=== PATIENT | male | born 1950 | race Caucasian/White ===

== ENCOUNTER → 2017-02-03 | Outpatient (REF) | payer MEDICARE | LOC: M LAB REF 16:32 | PROVIDERS: ATTEND Internal Medicine | DX: D51.9 Vitamin B12 deficiency anemia, unspecified (principal) ==

== ENCOUNTER → 2017-09-21 | Outpatient (REF) | payer MEDICARE ==
[2017-09-21 20:56] LABS: VITAMIN B12 LEVEL 477 PG/ML (247-911)
== END ==
LOC: M LAB REF 17:48
DX: D51.9 Vitamin B12 deficiency anemia, unspecified (principal)
CPT/HCPCS: 82607

== ENCOUNTER → 2017-11-20 | Outpatient (REF) | payer MEDICARE ==
[2017-11-23 00:07] LABS: ENDOMYSIAL ABY IgA Negative (Negative)
[2017-11-23 00:07] LABS: TISSUE TRANSGLUTAMINASE IgA <2 U/mL (0-3)
== END ==
LOC: M LAB REF 17:28
DX: R19.4 Change in bowel habit (principal)
CPT/HCPCS: 86255

== ENCOUNTER → 2017-11-23 | Outpatient (REF) | payer MEDICARE | LOC: M LAB REF 10:26 | DX: R19.4 Change in bowel habit (principal) | CPT/HCPCS: 87507 ==

== ENCOUNTER → 2022-03-23 | Outpatient (REF) | payer MEDICARE ==
[2022-03-23 17:14] LABS: PERCENT SATURATION 21.1 % (19.7-50.0)
== END ==
LOC: M LAB REF 16:22
PROVIDERS: ATTEND Internal Medicine
DX: D64.9 Anemia, unspecified (principal); R63.4 Abnormal weight loss; R63.0 Anorexia

== ENCOUNTER → 2022-04-24 | Outpatient (CLI) | payer MEDICARE ==
[~2022-04-24] MED LIST: AMIO200T49 PO; ASPI81TA26 PO; D32000CA PO; DILT180C70 PO; IRBE150T7 PO; IRON65TA2 PO; LOPR1TAB6 PO; MAGN400T35 PO; METO50TA7 PO; SUPETAB44 PO; TAMS1CAP17 PO; VITA500T41 PO
== END ==
LOC: M LABSMTC 09:09
PROVIDERS: ATTEND Anesthesiology
DX: Z01.812 Encounter for preprocedural laboratory examination (principal)

== ENCOUNTER 2022-04-28 09:40 | Day surgery (SDC) | payer MEDICARE ==
[~2022-04-28] VITALS: Ht 182.9 cm; Wt 70.3 kg
[~2022-04-28 09:40] MED LIST changes: +NS 1,000 ML IV ONE
[2022-04-28] MEDS ORDERED: LIDOCAINE 2% 100MG/5ML SDV (FOR ANES.) As Ordered ONE (11:16)
[2022-04-28] MEDS ORDERED: propofoL 200 MG/20 ML VIAL As Ordered ONE ×3 (11:16→12:05)
[2022-04-28 12:55] VITALS: BP 157/71
== END 2022-04-28 13:03 | disposition home or self-care (01) ==
LOC: M OPP 09:40
PROVIDERS: ATTEND Surgery
DX: Z12.11 Encounter for screening for malignant neoplasm of colon (principal); Z86.010 Personal history of colon polyps; Z80.0 Family history of malignant neoplasm of digestive organs; D12.0 Benign neoplasm of cecum; D12.4 Benign neoplasm of descending colon; D12.8 Benign neoplasm of rectum; K62.89 Other specified diseases of anus and rectum; I49.1 Atrial premature depolarization; I10 Essential (primary) hypertension; F17.200 Nicotine dependence, unspecified, uncomplicated; G60.9 Hereditary and idiopathic neuropathy, unspecified; N40.0 Benign prostatic hyperplasia without lower urinary tract symptoms; D50.9 Iron deficiency anemia, unspecified; Z79.84 Long term (current) use of oral hypoglycemic drugs; Z79.899 Other long term (current) drug therapy; Z88.0 Allergy status to penicillin; Z88.8 Allergy status to other drugs, medicaments and biological substances; Z93.3 Colostomy status

== ENCOUNTER 2022-07-10 13:26 | Emergency (ER) | payer MEDICARE ==
[~2022-07-10] VITALS: Ht 185.4 cm; Wt 66.4 kg
[~2022-07-10 13:26] MED LIST changes: -NS 1,000 ML IV ONE
[2022-07-10 13:55] LABS: BASO % 0.1 % (0.0-1.0); EOS # 0.1 10^3/uL (0.0-0.5); HEMATOCRIT 42.2 % (42.0-52.0); HEMOGLOBIN 13.9 g/dl (13.5-17.5); LYMPH # 0.9 10^3/uL (1.5-5.0); LYMPH % 12.7 % (24.0-44.0); MEAN CORPUSCULAR HEMOGLOBIN 32.6 pg (27.0-33.0); MEAN CORPUSCULAR HGB CONC 32.9 g/dl (32.0-36.5); MEAN CORPUSCULAR VOLUME 98.8 fl (80.0-96.0); MONO # 0.7 10^3/uL (0.0-0.8); MONO % 9.9 % (2.0-8.0); NEUTROPHILS # 5.2 10^3/uL (1.5-8.5); PLATELET COUNT, AUTOMATED 204 10^3/uL (150-450); RED BLOOD COUNT 4.27 10^6/uL (4.30-6.10); WHITE BLOOD COUNT 6.8 10^3/uL (4.0-10.0)
[2022-07-10 14:24] LABS: BLOOD UREA NITROGEN 28 MG/DL (7-18); CALCIUM LEVEL 9.8 MG/DL (8.8-10.2); CARBON DIOXIDE LEVEL 30 MEQ/L (21-32); CHLORIDE LEVEL 100 MEQ/L (98-107); GLOMERULAR FILTRATION RATE > 60.0 (>42); GLUCOSE, FASTING 115 MG/DL (70-100); SODIUM LEVEL 134 MEQ/L (136-145)
[2022-07-10] MEDS ORDERED: NS 1,000 ML IV ONE (15:10)
[2022-07-10] MEDS ORDERED: LIDOCAINE 2% 5ML JELLY UROJET TOP ONE (15:15)
[2022-07-10] MEDS ORDERED: ISOVUE-370 76% 100ML VIAL As Ordered ONE (15:21)
[2022-07-10 15:42] LABS: ALBUMIN 3.2 GM/DL (3.2-5.2); ALT/SGPT 25 U/L (12-78); BILIRUBIN,DIRECT 0.3 MG/DL (0.0-0.2); BILIRUBIN,TOTAL 0.8 MG/DL (0.2-1.0); FREE T4 1.38 NG/DL (0.76-1.46); TOTAL PROTEIN 6.6 GM/DL (6.4-8.2)
[2022-07-10 15:58] LABS: INR 0.92; PROTHROMBIN TIME 12.6 SECONDS (12.5-14.5)
[2022-07-10 15:59] LABS: PARTIAL THROMBOPLASTIN TIME 29.1 SECONDS (24.8-34.2)
[2022-07-10 18:00] VITALS: BP 158/74
== END 2022-07-10 18:25 | disposition home or self-care (01) ==
LOC: M ED 13:26
DX: C32.1 Malignant neoplasm of supraglottis (principal); R33.9 Retention of urine, unspecified; I10 Essential (primary) hypertension; F17.200 Nicotine dependence, unspecified, uncomplicated; F10.10 Alcohol abuse, uncomplicated; Z86.79 Personal history of other diseases of the circulatory system; Z88.0 Allergy status to penicillin; Z88.8 Allergy status to other drugs, medicaments and biological substances; Z79.82 Long term (current) use of aspirin; Z79.899 Other long term (current) drug therapy
CPT/HCPCS: 51703; 70491; 71275; 80048; 80076; 84439; 84443; 85025; 85610; 85730; 86850; 86900; 86901; 99285; Q9967

== ENCOUNTER → 2022-08-25 | Outpatient (CLI) | payer MEDICARE ==
[~2022-08-25] MED LIST changes: +ASPI81CH33 PO; +CART180C3 PO; +DILT1TAB12 EN; +FINA5TAB2
== END ==
LOC: M ONCR 14:18
PROVIDERS: ATTEND General Practice
DX: C32.1 Malignant neoplasm of supraglottis (principal); F17.210 Nicotine dependence, cigarettes, uncomplicated; E78.5 Hyperlipidemia, unspecified; G62.9 Polyneuropathy, unspecified; I48.91 Unspecified atrial fibrillation; R07.0 Pain in throat; R05.3 Chronic cough; R63.4 Abnormal weight loss; R53.83 Other fatigue; Z80.0 Family history of malignant neoplasm of digestive organs; Z88.0 Allergy status to penicillin; Z88.8 Allergy status to other drugs, medicaments and biological substances; Z79.899 Other long term (current) drug therapy; Z93.0 Tracheostomy status
CPT/HCPCS: 31575; G0463

== ENCOUNTER → 2022-09-05 | Outpatient (CLI) | payer MEDICARE | LOC: M PLARAD 15:14 | PROVIDERS: ATTEND General Practice | DX: C32.1 Malignant neoplasm of supraglottis (principal) | CPT/HCPCS: 78815; A9552 ==

== ENCOUNTER 2022-09-06 09:54 | Outpatient (RCR) | payer MEDICARE ==
[~2022-09-06 09:54] MED LIST changes: -ASPI81CH33 PO
[2022-09-06] MEDS ORDERED: ASPI81CH33 PO (12:18)
[2022-09-22] MEDS ORDERED: ONDA-84 PO (09:55)
[2022-09-22] MEDS ORDERED: PROC10TA5 PO (09:56)
[2022-10-03] MEDS ORDERED: FLUC100T3 PO (10:31)
== END 2022-09-27 ==
LOC: M ST 09:54
PROVIDERS: ATTEND General Practice
DX: C32.1 Malignant neoplasm of supraglottis (principal)

== ENCOUNTER → 2022-09-27 | Outpatient (RCR) | payer MEDICARE ==
[~2022-09-27] MED LIST changes: +ASPI81CH33 PO; +ONDA-84 PO; +PROC10TA5 PO
== END ==
LOC: M ONCR 08-31 12:30
PROVIDERS: ATTEND General Practice
DX: C32.1 Malignant neoplasm of supraglottis (principal)

== ENCOUNTER 2022-10-08 18:21 | Emergency (ER) | payer MEDICARE ==
[~2022-10-08] VITALS: Ht 182.9 cm; Wt 64.4 kg
[~2022-10-08 18:21] MED LIST changes: +FLUC100T3 PO
[2022-10-08 20:37] VITALS: BP 162/89
[2022-10-10] MEDS ORDERED: LIDO15SO4 PO (11:02)
[2022-10-10] MEDS ORDERED: magic mouthwash PO (11:02)
== END 2022-10-08 20:45 | disposition home or self-care (01) ==
LOC: M ED 18:21
DX: I86.8 Varicose veins of other specified sites (principal); I48.91 Unspecified atrial fibrillation; I10 Essential (primary) hypertension; D50.9 Iron deficiency anemia, unspecified; C32.1 Malignant neoplasm of supraglottis; Z85.828 Personal history of other malignant neoplasm of skin; Z92.21 Personal history of antineoplastic chemotherapy; Z92.3 Personal history of irradiation; F17.200 Nicotine dependence, unspecified, uncomplicated; Z79.82 Long term (current) use of aspirin; Z79.899 Other long term (current) drug therapy; Z88.0 Allergy status to penicillin; Z88.8 Allergy status to other drugs, medicaments and biological substances

== ENCOUNTER 2022-10-19 12:32 | Outpatient (CLI) | payer MEDICARE ==
[2022-10-19] VITALS (8 sets, daily range): BP systolic 114–136; BP diastolic 44–82
[~2022-10-19] VITALS: Ht 182.9 cm; Wt 62.2 kg
[~2022-10-19 12:32] MED LIST changes: -DILT1TAB12 EN; +DILT1TAB12 PO; -FINA5TAB2; +FINA5TAB2 PO; +LIDO15SO4 PO; +magic mouthwash PO
[2022-10-19] MEDS ORDERED: ACETAMINOPHEN TAB 650MG DOSE (2X325MG) PO ONE (16:05)
[2022-10-19] MEDS ORDERED: diphenhydrAMINE 25MG CAP PO ONE (16:05)
== END 2022-10-19 18:00 ==
LOC: M INFU 12:32
PROVIDERS: ATTEND Specialist
DX: C32.1 Malignant neoplasm of supraglottis (principal); Z88.0 Allergy status to penicillin; Z88.8 Allergy status to other drugs, medicaments and biological substances

== ENCOUNTER 2022-10-20 09:51 | Outpatient (RCR) | payer MEDICARE ==
[~2022-10-20 09:51] MED LIST changes: +DILT1TAB12 PEG; -DILT1TAB12 PO; +LIDO15SO PO; -LIDO15SO4 PO; +METO50TA7 PEG; -METO50TA7 PO
[2022-10-31] MEDS ORDERED: LIDO15SO PO (14:17)
[2022-10-31] MEDS ORDERED: ASPI81CH33 PO (14:17)
[2022-11-29] MEDS ORDERED: PROP225T PO (10:27)
[2022-11-29] MEDS ORDERED: NYST-38 PO (11:02)
[2022-12-12] MEDS ORDERED: FLUC100T3 PO (14:00)
[2022-12-19] MEDS ORDERED: FERR5MLUD PEG (13:43)
[2022-12-21] MEDS ORDERED: FERR5MLUD PEG (08:21)
[2022-12-21] MEDS ORDERED: MAGN400C PO (13:33)
[2022-12-21] MEDS ORDERED: LEVO1TAB39 PO (13:33)
== END 2022-10-25 ==
LOC: M ONCR 09:51
PROVIDERS: ATTEND General Practice
DX: C32.1 Malignant neoplasm of supraglottis (principal)

== ENCOUNTER 2022-10-20 11:29 | Inpatient (IN) | payer MEDICARE ==
[2022-10-20] VITALS (10 sets, daily range): BP systolic 109–157; BP diastolic 56–80
[~2022-10-20] VITALS: Ht 182.9 cm; Wt 63.2 kg
[~2022-10-20 11:29] MED LIST changes: +FINA5TAB2 PEG; -FINA5TAB2 PO; -LIDO15SO PO; +LIDO15SO4 PO; +TAMS1CAP17 PEG; -TAMS1CAP17 PO
[2022-10-20 12:08] LABS: MEAN CORPUSCULAR HEMOGLOBIN 30.5 pg (27.0-33.0); MEAN CORPUSCULAR VOLUME 92.4 fl (80.0-96.0); PLATELET COUNT, AUTOMATED 119 10^3/uL (150-450); RED BLOOD COUNT 1.97 10^6/uL (4.30-6.10); WHITE BLOOD COUNT 3.8 10^3/uL (4.0-10.0)
[2022-10-20 12:20] LABS: HEMATOCRIT 18.2 % (42.0-52.0)
[2022-10-20 12:33] LABS: CK-MB VALUE MASS < 1.0 NG/ML (<3.6)
[2022-10-20 12:38] LABS: ALBUMIN 2.8 G/DL (3.2-5.2); ALKALINE PHOSPHATASE 71 U/L (46-116); ALT/SGPT 15 U/L (7.0-40); AST/SGOT 16 U/L (<34); BILIRUBIN,DIRECT 0.2 MG/DL (<0.4); BILIRUBIN,TOTAL 0.5 MG/DL (0.3-1.2); BLOOD UREA NITROGEN 46 MG/DL (9-23); CALCIUM LEVEL 8.2 MG/DL (8.3-10.6); CARBON DIOXIDE LEVEL 30 MMOL/L (20-31); CHLORIDE LEVEL 103 MMOL/L (98-107); CPK CREATINE PHOSPHOKINASE 19 U/L (46-171); CREATININE FOR GFR 0.86 MG/DL (0.70-1.30); GLOMERULAR FILTRATION RATE > 60.0 (>42); GLUCOSE, FASTING 118 MG/DL (74-106); MB/CK RELATIVE INDEX 5.26 (< OR =4); POTASSIUM SERUM 3.8 MMOL/L (3.5-5.1); SODIUM LEVEL 137 MMOL/L (136-145); TOTAL PROTEIN 5.2 G/DL (5.7-8.2)
[2022-10-20 12:40] LABS: THYROID STIMULATING HORMONE 1.723 uIU/ML (0.55-4.78)
[2022-10-20 12:59] LABS: ATYPICAL LYMPH 2 % (0-5); LYMPHOCYTES 11 % (16-44); METAMYELOCYTES 2 % (0-0); MONOCYTES 8 % (0-5); NEUTROPHILS 41 % (28-66)
[2022-10-20 13:00] LABS: HYPOCHROMASIA 2+
[2022-10-20] MEDS ORDERED: PANTOPRAZOLE 40MG VIAL IV ONE (13:00)
[2022-10-20 13:02] LABS: ANISOCYTOSIS 2+; PLATELET ESTIMATE DECREASED (NORMAL)
[2022-10-20 13:15] LABS: BASO % 0.3 % (0.0-1.0); EOS % 0.3 % (0.0-3.0); LYMPH # 0.4 10^3/uL (1.5-5.0); LYMPH % 9.9 % (24.0-44.0); MONO # 0.5 10^3/uL (0.0-0.8); MONO % 13.1 % (2.0-8.0); NEUTROPHILS # 2.7 10^3/uL (1.5-8.5); NEUTROPHILS % 76.1 % (36.0-66.0)
[2022-10-20] MEDS ORDERED: HOME MED LIST COMPLETE! XX SCH (13:40)
[2022-10-20 13:51] LABS: IRON (FE) 22 UG/DL (65-175); PERCENT SATURATION 10.1 % (19.7-50.0); TOTAL IRON BINDING CAPACITY 218 UG/DL (250-425)
[2022-10-20 13:54] LABS: FERRITIN 693.8 NG/ML (10.5-307.3)
[2022-10-20] MEDS ORDERED: MAG SULF 1GM/100ML (MAG RUN) 1 GM in IV 1 EA IV ONE (14:20)
[2022-10-20] MEDS ORDERED: ONDANSETRON 4MG TAB PO PRN (15:45)
[2022-10-20 16:01] LABS: RSV AMPLIFICATION NEGATIVE (NEGATIVE)
[2022-10-20] MEDS ORDERED: ONDANSETRON 4MG TAB PEG PRN (16:15)
[2022-10-20 17:58] LABS: HEMOGLOBIN 6.1 g/dl (13.5-17.5)
[2022-10-20 17:59] LABS: HEMATOCRIT 17.9 % (42.0-52.0)
[2022-10-20] MEDS ORDERED: PROCHLORPERAZINE 5MG TAB PO SCH (18:00)
[2022-10-20] MEDS: PROCHLORPERAZINE 5MG TAB PEG SCH (18:00)
[2022-10-20] MEDS: LIDOCAINE VISCOUS 2% SOLN 15ML UDC PO SCH ×2 (18:23→21:00)
[2022-10-20] MEDS: ACETAMINOPHEN TAB 650MG DOSE (2X325MG) PEG PRN (19:55)
[2022-10-20] MEDS ORDERED: TAMSULOSIN 0.4 MG CAP PO SCH (21:00)
[2022-10-20] MEDS ORDERED: FINASTERIDE 5MG TAB PO SCH (21:00)
[2022-10-20] MEDS: PANTOPRAZOLE 40MG VIAL IV SCH (22:05)
[2022-10-20] MEDS: FINASTERIDE 5MG TAB PEG SCH (22:06)
[2022-10-20 22:50] LABS: HEMATOCRIT 22.7 % (42.0-52.0); HEMOGLOBIN 7.9 g/dl (13.5-17.5)
[2022-10-21] VITALS (11 sets, daily range): BP systolic 139–180; BP diastolic 60–89
[2022-10-21] MEDS: PROCHLORPERAZINE 5MG TAB PEG SCH ×5 (00:40→23:47)
[2022-10-21] MEDS: ACETAMINOPHEN TAB 650MG DOSE (2X325MG) PEG PRN ×2 (02:51→23:47)
[2022-10-21 03:56] LABS: BLOOD UREA NITROGEN 28 MG/DL (9-23); CALCIUM LEVEL 7.7 MG/DL (8.3-10.6); CARBON DIOXIDE LEVEL 28 MMOL/L (20-31); CHLORIDE LEVEL 107 MMOL/L (98-107); CREATININE FOR GFR 0.65 MG/DL (0.70-1.30); GLOMERULAR FILTRATION RATE > 60.0 (>42); GLUCOSE, FASTING 96 MG/DL (74-106); MAGNESIUM LEVEL 1.8 MG/DL (1.8-2.4); POTASSIUM SERUM 3.4 MMOL/L (3.5-5.1); SODIUM LEVEL 140 MMOL/L (136-145)
[2022-10-21] MEDS ORDERED: TAMSULOSIN 0.4 MG CAP PO ONE (04:00)
[2022-10-21 04:23] LABS: HEMATOCRIT 25.5 % (42.0-52.0); HEMOGLOBIN 8.7 g/dl (13.5-17.5); MEAN CORPUSCULAR HEMOGLOBIN 29.9 pg (27.0-33.0); MEAN CORPUSCULAR HGB CONC 34.1 g/dl (32.0-36.5); MEAN CORPUSCULAR VOLUME 87.6 fl (80.0-96.0); PLATELET COUNT, AUTOMATED 100 10^3/uL (150-450); RED BLOOD COUNT 2.91 10^6/uL (4.30-6.10)
[2022-10-21] MEDS ORDERED: POTASSIUM CHLORIDE 10MEQ SR TABLET PO ONE (08:00)
[2022-10-21] MEDS ORDERED: POTASSIUM CHLORIDE 10% LIQ 20MEQ/15ML UDC PO ONE (08:05)
[2022-10-21] MEDS: NICOTINE 7 MG/24 HR TRANSDERMAL TD SCH ×2 (09:00→09:07)
[2022-10-21] MEDS ORDERED: ASPIRIN 81MG CHEW TABLET PO SCH (09:00)
[2022-10-21] MEDS ORDERED: METOPROLOL TART 50 MG TAB PO SCH (09:00)
[2022-10-21] MEDS: PANTOPRAZOLE 40MG VIAL IV SCH ×2 (09:07→20:59)
[2022-10-21] MEDS: METOPROLOL TART 25 MG TABLET PEG SCH (09:08)
[2022-10-21] MEDS: LIDOCAINE VISCOUS 2% SOLN 15ML UDC PO SCH ×3 (09:08→21:00)
[2022-10-21 11:03] LABS: ATYPICAL LYMPH 5 % (0-5); EOSINOPHILS 1 % (0-3); LYMPHOCYTES 7 % (16-44); MONOCYTES 9 % (0-5); NEUTROPHILS 73 % (28-66); PLATELET ESTIMATE DECREASED (NORMAL); TOXIC GRANULATION 1+; TOXIC VACUOLATION 1+
[2022-10-21 11:04] LABS: ANISOCYTOSIS 1+
[2022-10-21 11:05] LABS: OVALOCYTES 1+
[2022-10-21] MEDS ORDERED: FLEET ENEMA PR ONE (12:00)
[2022-10-21 12:22] LABS: HEMATOCRIT 25.2 % (42.0-52.0); HEMOGLOBIN 8.8 g/dl (13.5-17.5)
[2022-10-21] MEDS ORDERED: LIDOCAINE 2% 100MG/5ML SDV (FOR ANES.) As Ordered ONE (15:59)
[2022-10-21] MEDS ORDERED: propofoL 200 MG/20 ML VIAL As Ordered ONE ×2 (16:07→16:16)
[2022-10-21] MEDS ORDERED: SIMETHICONE 40MG/0.6ML DROPS 30ML As Ordered ONE (16:35)
[2022-10-21] MEDS: SUCRALFATE SUSP 1GM/10ML UD GT SCH ×2 (17:24→20:59)
[2022-10-21] MEDS: TAMSULOSIN 0.4 MG CAP PO SCH (17:29)
[2022-10-21 18:38] LABS: BASO % 0.7 % (0.0-1.0); HEMATOCRIT 27.7 % (42.0-52.0); HEMOGLOBIN 9.3 g/dl (13.5-17.5); LYMPH # 0.3 10^3/uL (1.5-5.0); MEAN CORPUSCULAR HEMOGLOBIN 30.2 pg (27.0-33.0); MEAN CORPUSCULAR HGB CONC 33.6 g/dl (32.0-36.5); MEAN CORPUSCULAR VOLUME 89.9 fl (80.0-96.0); MONO # 0.2 10^3/uL (0.0-0.8); NEUTROPHILS % 65.3 % (36.0-66.0); PLATELET COUNT, AUTOMATED 98 10^3/uL (150-450); RED BLOOD COUNT 3.08 10^6/uL (4.30-6.10); WHITE BLOOD COUNT 1.5 10^3/uL (4.0-10.0)
[2022-10-21] MEDS: FINASTERIDE 5MG TAB PEG SCH (20:49)
[2022-10-22] VITALS (7 sets, daily range): BP systolic 116–204; BP diastolic 48–80
[2022-10-22] MEDS ORDERED: LEVALBUTEROL 1.25MG 0.5ML CONCENTRATE NEB NEB ONE (00:50)
[2022-10-22 01:07] LABS: HEMATOCRIT 26.6 % (42.0-52.0); HEMOGLOBIN 9.3 g/dl (13.5-17.5)
[2022-10-22 04:30] LABS: HEMATOCRIT 26.8 % (42.0-52.0); HEMOGLOBIN 9.4 g/dl (13.5-17.5); MEAN CORPUSCULAR HEMOGLOBIN 30.7 pg (27.0-33.0); MEAN CORPUSCULAR HGB CONC 35.1 g/dl (32.0-36.5); MEAN CORPUSCULAR VOLUME 87.6 fl (80.0-96.0); PLATELET COUNT, AUTOMATED 107 10^3/uL (150-450); RED BLOOD COUNT 3.06 10^6/uL (4.30-6.10); WHITE BLOOD COUNT 1.1 10^3/uL (4.0-10.0)
[2022-10-22] MEDS: ACETAMINOPHEN TAB 650MG DOSE (2X325MG) PEG PRN ×3 (04:53→20:25)
[2022-10-22 04:56] LABS: BASOPHILS 2 % (0-1); LYMPHOCYTES 11 % (16-44); MONOCYTES 19 % (0-5); NEUTROPHILS 58 % (28-66); PLATELET ESTIMATE DECREASED (NORMAL)
[2022-10-22 04:57] LABS: ANISOCYTOSIS 2+
[2022-10-22 04:58] LABS: OVALOCYTES 1+; POIKILOCYTOSIS 1+
[2022-10-22 04:59] LABS: MICROCYTOSIS 1+
[2022-10-22] MEDS: PROCHLORPERAZINE 5MG TAB PEG SCH ×3 (05:15→17:55)
[2022-10-22 06:17] LABS: HEMATOCRIT 26.7 % (42.0-52.0); HEMOGLOBIN 9.1 g/dl (13.5-17.5); MEAN CORPUSCULAR HEMOGLOBIN 30.3 pg (27.0-33.0); MEAN CORPUSCULAR HGB CONC 34.1 g/dl (32.0-36.5); WHITE BLOOD COUNT 1.1 10^3/uL (4.0-10.0)
[2022-10-22 06:22] LABS: PLATELET COUNT, AUTOMATED 90 10^3/uL (150-450)
[2022-10-22 06:44] LABS: BLOOD UREA NITROGEN 15 MG/DL (9-23); CALCIUM LEVEL 7.5 MG/DL (8.3-10.6); CARBON DIOXIDE LEVEL 27 MMOL/L (20-31); CHLORIDE LEVEL 105 MMOL/L (98-107); CREATININE FOR GFR 0.66 MG/DL (0.70-1.30); GLOMERULAR FILTRATION RATE > 60.0 (>42); GLUCOSE, FASTING 97 MG/DL (74-106); MAGNESIUM LEVEL 1.6 MG/DL (1.8-2.4); POTASSIUM SERUM 3.2 MMOL/L (3.5-5.1); SODIUM LEVEL 139 MMOL/L (136-145)
[2022-10-22] MEDS ORDERED: POTASSIUM CHLORIDE 10% LIQ 20MEQ/15ML UDC PO ONE (06:55)
[2022-10-22 07:11] LABS: LYMPH # 0.1 10^3/uL (1.5-5.0); LYMPH % 10.4 % (24.0-44.0); MONO # 0.2 10^3/uL (0.0-0.8); MONO % 22.6 % (2.0-8.0); NEUTROPHILS % 66.1 % (36.0-66.0)
[2022-10-22 07:13] LABS: NEUTROPHILS # 0.7 10^3/uL (1.5-8.5)
[2022-10-22] MEDS: PANTOPRAZOLE 40MG VIAL IV SCH ×2 (08:39→20:48)
[2022-10-22] MEDS: LIDOCAINE VISCOUS 2% SOLN 15ML UDC PO SCH ×3 (08:40→20:52)
[2022-10-22] MEDS: SUCRALFATE SUSP 1GM/10ML UD GT SCH ×4 (08:41→20:52)
[2022-10-22] MEDS: MAG SULF 1GM/100ML (MAG RUN) 1 GM in IV 1 EA IV SCH ×2 (08:42→11:01)
[2022-10-22] MEDS: METOPROLOL TART 25 MG TABLET PEG SCH (08:42)
[2022-10-22] MEDS: TAMSULOSIN 0.4 MG CAP PO SCH ×2 (08:42→20:48)
[2022-10-22] MEDS: NICOTINE 7 MG/24 HR TRANSDERMAL TD SCH (08:43)
[2022-10-22] MEDS ORDERED: LIDOCAINE 2% 5ML JELLY UROJET As Ordered ONE (09:39)
[2022-10-22 12:00] LABS: HEMATOCRIT 27.3 % (42.0-52.0); HEMOGLOBIN 9.2 g/dl (13.5-17.5)
[2022-10-22] MEDS: guaiFENesin 200 MG TAB PEG SCH ×2 (12:41→20:48)
[2022-10-22] MEDS ORDERED: FERROUS SULFATE 325MG TAB PEG SCH (12:50)
[2022-10-22] MEDS ORDERED: EPOETIN SC ONE (14:00)
[2022-10-22] MEDS: FERROUS SULFATE 300MG/5ML UDC LIQUID PO SCH (15:16)
[2022-10-22] MEDS: FILGRASTIM 480 MCG/0.8 ML SYRINGE **SC ADMINISTRATION ONLY SC SCH (15:18)
[2022-10-22] MEDS: FINASTERIDE 5MG TAB PEG SCH (20:38)
[2022-10-23] VITALS (7 sets, daily range): BP systolic 108–182; BP diastolic 42–70
[2022-10-23] MEDS: PROCHLORPERAZINE 5MG TAB PEG SCH ×4 (00:41→17:14)
[2022-10-23] MEDS: ACETAMINOPHEN TAB 650MG DOSE (2X325MG) PEG PRN ×4 (00:42→20:13)
[2022-10-23] MEDS ORDERED: amLODIPine 5 MG TAB PO ONE (02:00)
[2022-10-23 05:34] LABS: HEMATOCRIT 27.8 % (42.0-52.0); HEMOGLOBIN 9.5 g/dl (13.5-17.5); MEAN CORPUSCULAR HEMOGLOBIN 30.6 pg (27.0-33.0); MEAN CORPUSCULAR HGB CONC 34.2 g/dl (32.0-36.5); MEAN CORPUSCULAR VOLUME 89.7 fl (80.0-96.0)
[2022-10-23 05:38] LABS: PLATELET COUNT, AUTOMATED 73 10^3/uL (150-450); WHITE BLOOD COUNT 0.9 10^3/uL (4.0-10.0)
[2022-10-23 06:02] LABS: BLOOD UREA NITROGEN 12 MG/DL (9-23); CARBON DIOXIDE LEVEL 27 MMOL/L (20-31); CHLORIDE LEVEL 99 MMOL/L (98-107); GLOMERULAR FILTRATION RATE > 60.0 (>42); GLUCOSE, FASTING 104 MG/DL (74-106); MAGNESIUM LEVEL 1.7 MG/DL (1.8-2.4); POTASSIUM SERUM 3.8 MMOL/L (3.5-5.1); SODIUM LEVEL 133 MMOL/L (136-145)
[2022-10-23 06:44] LABS: LYMPH # 0.1 10^3/uL (1.5-5.0); MONO # 0.2 10^3/uL (0.0-0.8); MONO % 17.4 % (2.0-8.0); NEUTROPHILS % 69.5 % (36.0-66.0)
[2022-10-23 06:47] LABS: NEUTROPHILS # 0.6 10^3/uL (1.5-8.5)
[2022-10-23] MEDS: MAG SULF 1GM/100ML (MAG RUN) 1 GM in IV 1 EA IV SCH ×2 (07:55→09:37)
[2022-10-23] MEDS: NICOTINE 7 MG/24 HR TRANSDERMAL TD SCH (08:43)
[2022-10-23] MEDS ORDERED: ASPIRIN 81MG ENTERIC TABLET PO SCH (09:00)
[2022-10-23] MEDS: LIDOCAINE VISCOUS 2% SOLN 15ML UDC PO SCH ×3 (09:37→20:12)
[2022-10-23] MEDS: SUCRALFATE SUSP 1GM/10ML UD GT SCH ×4 (09:37→20:13)
[2022-10-23] MEDS: PANTOPRAZOLE 40MG VIAL IV SCH (09:37)
[2022-10-23] MEDS: FERROUS SULFATE 300MG/5ML UDC LIQUID PO SCH (09:37)
[2022-10-23] MEDS: TAMSULOSIN 0.4 MG CAP PO SCH ×2 (09:37→20:14)
[2022-10-23] MEDS: guaiFENesin 200 MG TAB PEG SCH ×2 (09:37→20:13)
[2022-10-23] MEDS: METOPROLOL TART 25 MG TABLET PEG SCH (09:38)
[2022-10-23] MEDS: LevoFLOXacin IV 750 MG in IV 1 EA IV SCH (11:32)
[2022-10-23] MEDS: FILGRASTIM 480 MCG/0.8 ML SYRINGE **SC ADMINISTRATION ONLY SC SCH (11:32)
[2022-10-23] MEDS: ASPIRIN 81MG CHEW TABLET PO SCH (11:33)
[2022-10-23] MEDS: LIDOCAINE 4% TOPICAL SOLN 50 ML BTL TOP PRN (13:52)
[2022-10-23] MEDS: OMEPRAZOLE SUSPENSION 20MG 10ML ORAL SYRINGE GT SCH (20:13)
[2022-10-23] MEDS: FINASTERIDE 5MG TAB PEG SCH (20:14)
[2022-10-24] VITALS (9 sets, daily range): BP systolic 100–142; BP diastolic 48–68; O2SAT 90–92
[2022-10-24] MEDS: PROCHLORPERAZINE 5MG TAB PEG SCH ×4 (00:30→17:32)
[2022-10-24 06:28] LABS: HEMATOCRIT 26.2 % (42.0-52.0); HEMOGLOBIN 8.8 g/dl (13.5-17.5); MEAN CORPUSCULAR HEMOGLOBIN 30.6 pg (27.0-33.0); MEAN CORPUSCULAR HGB CONC 33.6 g/dl (32.0-36.5); RED BLOOD COUNT 2.88 10^6/uL (4.30-6.10)
[2022-10-24 06:32] LABS: PLATELET COUNT, AUTOMATED 80 10^3/uL (150-450); WHITE BLOOD COUNT 0.7 10^3/uL (4.0-10.0)
[2022-10-24 06:51] LABS: BLOOD UREA NITROGEN 14 MG/DL (9-23); CALCIUM LEVEL 7.7 MG/DL (8.3-10.6); CARBON DIOXIDE LEVEL 30 MMOL/L (20-31); CHLORIDE LEVEL 97 MMOL/L (98-107); CREATININE FOR GFR 0.66 MG/DL (0.70-1.30); GLOMERULAR FILTRATION RATE > 60.0 (>42); GLUCOSE, FASTING 111 MG/DL (74-106); MAGNESIUM LEVEL 1.9 MG/DL (1.8-2.4); POTASSIUM SERUM 4.1 MMOL/L (3.5-5.1); SODIUM LEVEL 132 MMOL/L (136-145)
[2022-10-24] MEDS ORDERED: ACETYLCYSTEINE 10% 30ML VIAL INH SCH (08:00)
[2022-10-24] MEDS: SUCRALFATE SUSP 1GM/10ML UD GT SCH ×4 (08:38→20:52)
[2022-10-24] MEDS: ASPIRIN 81MG CHEW TABLET PO SCH (08:39)
[2022-10-24] MEDS: METOPROLOL TART 25 MG TABLET PEG SCH (08:39)
[2022-10-24] MEDS: FERROUS SULFATE 300MG/5ML UDC LIQUID PO SCH (08:39)
[2022-10-24] MEDS: TAMSULOSIN 0.4 MG CAP PO SCH ×2 (08:39→20:53)
[2022-10-24] MEDS: NICOTINE 7 MG/24 HR TRANSDERMAL TD SCH (08:40)
[2022-10-24] MEDS: guaiFENesin 200 MG TAB PEG SCH ×2 (08:40→20:52)
[2022-10-24] MEDS: OMEPRAZOLE SUSPENSION 20MG 10ML ORAL SYRINGE GT SCH ×2 (08:40→20:53)
[2022-10-24] MEDS: LIDOCAINE VISCOUS 2% SOLN 15ML UDC PO SCH ×3 (08:40→20:54)
[2022-10-24] MEDS: ALBUTEROL SULFATE 2.5MG/0.5ML INH NEB SOLN NEB SCH ×4 (09:41→23:23)
[2022-10-24 10:39] LABS: BASO % 1.4 % (0.0-1.0); LYMPH # 0.1 10^3/uL (1.5-5.0); LYMPH % 9.5 % (24.0-44.0); MONO # 0.1 10^3/uL (0.0-0.8); MONO % 10.8 % (2.0-8.0); NEUTROPHILS % 76.9 % (36.0-66.0)
[2022-10-24 10:43] LABS: NEUTROPHILS # 0.6 10^3/uL (1.5-8.5)
[2022-10-24] MEDS: NS 1,000 ML IV SCH ×2 (12:18→22:39)
[2022-10-24] MEDS: LevoFLOXacin IV 750 MG in IV 1 EA IV SCH (12:18)
[2022-10-24] MEDS: FILGRASTIM 480 MCG/0.8 ML SYRINGE **SC ADMINISTRATION ONLY SC SCH (12:27)
[2022-10-24] MEDS ORDERED: SODIUM CHLORIDE 0.9% 1000ML IV STA (13:45)
[2022-10-24 14:20] LABS: ABG BASE EXCESS 4.1 (-2.0-2.0); ABG PARTIAL PRESSURE CO2 34.1 mmHg (35.0-45.0); ABG TOTAL CO2 28.1 MEQ/L (23.0-31.0); ABG pH (ARTERIAL) 7.517 UNITS (7.350-7.450)
[2022-10-24 14:21] LABS: ABG PARTIAL PRESSURE O2 49.6 mmHg (75.0-100.0)
[2022-10-24 14:38] LABS: HEMATOCRIT 26.2 % (42.0-52.0); LYMPH # 0.1 10^3/uL (1.5-5.0); LYMPH % 5.8 % (24.0-44.0); MEAN CORPUSCULAR HEMOGLOBIN 30.9 pg (27.0-33.0); MEAN CORPUSCULAR HGB CONC 34.4 g/dl (32.0-36.5); MONO # 0.1 10^3/uL (0.0-0.8); MONO % 4.8 % (2.0-8.0); NEUTROPHILS % 70.1 % (36.0-66.0); RED BLOOD COUNT 2.91 10^6/uL (4.30-6.10)
[2022-10-24 14:44] LABS: NEUTROPHILS # 0.7 10^3/uL (1.5-8.5); PLATELET COUNT, AUTOMATED 82 10^3/uL (150-450)
[2022-10-24] MEDS ORDERED: VANCOMYCIN HCL 1,000 MG, VIAL MATE ADAPTER 1 EACH in D5W 250 ML IV ONE (15:00)
[2022-10-24] MEDS ORDERED: ISOVUE-370 76% 100ML VIAL As Ordered ONE (15:00)
[2022-10-24 15:08] LABS: ALBUMIN 1.8 G/DL (3.2-5.2); ALKALINE PHOSPHATASE 103 U/L (46-116); ALT/SGPT 33 U/L (7.0-40); AST/SGOT 30 U/L (<34); BILIRUBIN,DIRECT 0.3 MG/DL (<0.4); BILIRUBIN,TOTAL 0.5 MG/DL (0.3-1.2); BLOOD UREA NITROGEN 19 MG/DL (9-23); CALCIUM LEVEL 7.7 MG/DL (8.3-10.6); CARBON DIOXIDE LEVEL 29 MMOL/L (20-31); CHLORIDE LEVEL 95 MMOL/L (98-107); CREATININE FOR GFR 0.69 MG/DL (0.70-1.30); GLOMERULAR FILTRATION RATE > 60.0 (>42); GLUCOSE, FASTING 170 MG/DL (74-106); MAGNESIUM LEVEL 1.7 MG/DL (1.8-2.4); POTASSIUM SERUM 3.3 MMOL/L (3.5-5.1); SODIUM LEVEL 131 MMOL/L (136-145); TOTAL PROTEIN 4.4 G/DL (5.7-8.2)
[2022-10-24] MEDS ORDERED: POTASSIUM CHLORIDE 10% LIQ 20MEQ/15ML UDC PEG ONE (15:15)
[2022-10-24] MEDS: CEFEPIME HCL 2 GM in D5W 50 ML IV SCH ×2 (15:25→22:39)
[2022-10-24] MEDS: LIDOCAINE 4% TOPICAL SOLN 50 ML BTL TOP PRN (16:19)
[2022-10-24] MEDS: MAG SULF 1GM/100ML (MAG RUN) 1 GM in IV 1 EA IV SCH ×2 (17:32→18:49)
[2022-10-24 17:33] LABS: HEMATOCRIT 24.7 % (42.0-52.0); HEMOGLOBIN 8.5 g/dl (13.5-17.5)
[2022-10-24] MEDS: ACETYLCYSTEINE 20% 4 ML VIAL (200MG/ML) INH SCH (19:32)
[2022-10-24] MEDS: VANCOMYCIN HCL 1,000 MG, VIAL MATE ADAPTER 1 EACH in NS 250 ML IV SCH (20:51)
[2022-10-24] MEDS: FINASTERIDE 5MG TAB PEG SCH (20:53)
[2022-10-24] MEDS ORDERED: ALBUTEROL SULFATE 2.5MG/0.5ML INH NEB SOLN NEB PRN (21:35)
[2022-10-25] VITALS (10 sets, daily range): BP systolic 122–158; BP diastolic 57–70
[2022-10-25] MEDS: PROCHLORPERAZINE 5MG TAB PEG SCH ×5 (01:05→23:20)
[2022-10-25] MEDS: ALBUTEROL SULFATE 2.5MG/0.5ML INH NEB SOLN NEB SCH ×6 (03:52→23:27)
[2022-10-25] MEDS: ACETAMINOPHEN TAB 650MG DOSE (2X325MG) PEG PRN (04:28)
[2022-10-25] MEDS: CEFEPIME HCL 2 GM in D5W 50 ML IV SCH ×3 (05:12→21:49)
[2022-10-25 06:42] LABS: HEMATOCRIT 23.2 % (42.0-52.0); HEMOGLOBIN 7.9 g/dl (13.5-17.5); MEAN CORPUSCULAR HEMOGLOBIN 30.5 pg (27.0-33.0); MEAN CORPUSCULAR HGB CONC 34.1 g/dl (32.0-36.5); MEAN CORPUSCULAR VOLUME 89.6 fl (80.0-96.0); RED BLOOD COUNT 2.59 10^6/uL (4.30-6.10)
[2022-10-25 06:50] LABS: PLATELET COUNT, AUTOMATED 76 10^3/uL (150-450)
[2022-10-25 06:51] LABS: WHITE BLOOD COUNT 0.9 10^3/uL (4.0-10.0)
[2022-10-25 07:05] LABS: BLOOD UREA NITROGEN 14 MG/DL (9-23); CALCIUM LEVEL 7.3 MG/DL (8.3-10.6); CARBON DIOXIDE LEVEL 26 MMOL/L (20-31); CHLORIDE LEVEL 100 MMOL/L (98-107); CREATININE FOR GFR 0.66 MG/DL (0.70-1.30); GLOMERULAR FILTRATION RATE > 60.0 (>42); GLUCOSE, FASTING 113 MG/DL (74-106); MAGNESIUM LEVEL 1.7 MG/DL (1.8-2.4); POTASSIUM SERUM 3.5 MMOL/L (3.5-5.1); SODIUM LEVEL 132 MMOL/L (136-145)
[2022-10-25] MEDS ORDERED: MAG SULF 1GM/100ML (MAG RUN) 1 GM in IV 1 EA IV ONE (07:10)
[2022-10-25] MEDS: NS 1,000 ML IV SCH ×2 (07:59→20:22)
[2022-10-25] MEDS: ACETYLCYSTEINE 20% 4 ML VIAL (200MG/ML) INH SCH ×2 (08:00→19:31)
[2022-10-25 08:18] LABS: HEMATOCRIT 22.6 % (42.0-52.0); HEMOGLOBIN 7.8 g/dl (13.5-17.5); LYMPH # 0.1 10^3/uL (1.5-5.0); LYMPH % 10.2 % (24.0-44.0); MEAN CORPUSCULAR HEMOGLOBIN 31.1 pg (27.0-33.0); MEAN CORPUSCULAR HGB CONC 34.5 g/dl (32.0-36.5); MONO # 0.1 10^3/uL (0.0-0.8); RED BLOOD COUNT 2.51 10^6/uL (4.30-6.10)
[2022-10-25 08:28] LABS: NEUTROPHILS # 0.7 10^3/uL (1.5-8.5); PLATELET COUNT, AUTOMATED 73 10^3/uL (150-450); WHITE BLOOD COUNT 0.9 10^3/uL (4.0-10.0)
[2022-10-25] MEDS: FERROUS SULFATE 300MG/5ML UDC LIQUID PO SCH (08:34)
[2022-10-25] MEDS: OMEPRAZOLE SUSPENSION 20MG 10ML ORAL SYRINGE GT SCH ×2 (08:34→20:19)
[2022-10-25] MEDS: SUCRALFATE SUSP 1GM/10ML UD GT SCH ×4 (08:34→20:21)
[2022-10-25] MEDS: guaiFENesin 200 MG TAB PEG SCH ×2 (08:34→20:20)
[2022-10-25] MEDS: NICOTINE 7 MG/24 HR TRANSDERMAL TD SCH (08:35)
[2022-10-25] MEDS: METOPROLOL TART 25 MG TABLET PEG SCH (08:35)
[2022-10-25] MEDS: ASPIRIN 81MG CHEW TABLET PO SCH (08:35)
[2022-10-25] MEDS: TAMSULOSIN 0.4 MG CAP PO SCH ×2 (08:35→20:21)
[2022-10-25] MEDS ORDERED: ASPIRIN 81MG CHEW TABLET PEG SCH (09:00)
[2022-10-25] MEDS: LIDOCAINE VISCOUS 2% SOLN 15ML UDC PO SCH ×3 (09:00→20:19)
[2022-10-25] MEDS: VANCOMYCIN HCL 1,000 MG, VIAL MATE ADAPTER 1 EACH in NS 250 ML IV SCH (09:30)
[2022-10-25] MEDS: FILGRASTIM 480 MCG/0.8 ML SYRINGE **SC ADMINISTRATION ONLY SC SCH (09:30)
[2022-10-25 13:21] LABS: INR 1.05; PROTHROMBIN TIME 13.9 SECONDS (12.5-14.5)
[2022-10-25 14:37] LABS: HEMATOCRIT 25.8 % (42.0-52.0); HEMOGLOBIN 8.7 g/dl (13.5-17.5)
[2022-10-25] MEDS: LevoFLOXacin 750 MG TABLET PO SCH (17:15)
[2022-10-25] MEDS: FINASTERIDE 5MG TAB PEG SCH (20:21)
[2022-10-26] VITALS (19 sets, daily range): BP systolic 128–158; BP diastolic 52–87; O2SAT 92–99
[2022-10-26] MEDS: ALBUTEROL SULFATE 2.5MG/0.5ML INH NEB SOLN NEB SCH ×6 (03:17→23:04)
[2022-10-26 04:46] LABS: EOS % 0.6 % (0.0-3.0); HEMOGLOBIN 8.1 g/dl (13.5-17.5); LYMPH # 0.1 10^3/uL (1.5-5.0); LYMPH % 7.6 % (24.0-44.0); MEAN CORPUSCULAR HEMOGLOBIN 30.6 pg (27.0-33.0); MEAN CORPUSCULAR HGB CONC 33.8 g/dl (32.0-36.5); MEAN CORPUSCULAR VOLUME 90.6 fl (80.0-96.0); MONO # 0.1 10^3/uL (0.0-0.8); MONO % 5.8 % (2.0-8.0); NEUTROPHILS # 1.3 10^3/uL (1.5-8.5); NEUTROPHILS % 74.9 % (36.0-66.0); RED BLOOD COUNT 2.65 10^6/uL (4.30-6.10); WHITE BLOOD COUNT 1.7 10^3/uL (4.0-10.0)
[2022-10-26 04:48] LABS: PLATELET COUNT, AUTOMATED 86 10^3/uL (150-450)
[2022-10-26 05:18] LABS: BLOOD UREA NITROGEN 13 MG/DL (9-23); CALCIUM LEVEL 7.2 MG/DL (8.3-10.6); CARBON DIOXIDE LEVEL 28 MMOL/L (20-31); CHLORIDE LEVEL 102 MMOL/L (98-107); CREATININE FOR GFR 0.58 MG/DL (0.70-1.30); GLOMERULAR FILTRATION RATE > 60.0 (>42); GLUCOSE, FASTING 100 MG/DL (74-106); MAGNESIUM LEVEL 1.5 MG/DL (1.8-2.4); POTASSIUM SERUM 3.1 MMOL/L (3.5-5.1); SODIUM LEVEL 136 MMOL/L (136-145)
[2022-10-26] MEDS ORDERED: MAGNESIUM OXIDE 400MG TAB (MAG-OX) PO ONE (05:50)
[2022-10-26] MEDS: PROCHLORPERAZINE 5MG TAB PEG SCH ×4 (06:00→23:26)
[2022-10-26] MEDS ORDERED: POTASSIUM CHLORIDE 10MEQ SR TABLET PO ONE (06:00)
[2022-10-26] MEDS: CEFEPIME HCL 2 GM in D5W 50 ML IV SCH (06:12)
[2022-10-26] MEDS: NS 1,000 ML IV SCH (06:21)
[2022-10-26] MEDS ORDERED: POTASSIUM CHLORIDE 10% LIQ 20MEQ/15ML UDC GT ONE (07:00)
[2022-10-26] MEDS: SUCRALFATE SUSP 1GM/10ML UD GT SCH ×4 (07:30→20:47)
[2022-10-26] MEDS: ACETYLCYSTEINE 20% 4 ML VIAL (200MG/ML) INH SCH ×2 (08:15→19:05)
[2022-10-26] MEDS: MAG SULF 1GM/100ML (MAG RUN) 1 GM in IV 1 EA IV SCH ×2 (08:31→09:00)
[2022-10-26] MEDS: NICOTINE 7 MG/24 HR TRANSDERMAL TD SCH (08:32)
[2022-10-26] MEDS: LIDOCAINE VISCOUS 2% SOLN 15ML UDC PO SCH ×3 (09:00→20:48)
[2022-10-26] MEDS: TAMSULOSIN 0.4 MG CAP PO SCH ×2 (09:00→20:47)
[2022-10-26] MEDS: FILGRASTIM 480 MCG/0.8 ML SYRINGE **SC ADMINISTRATION ONLY SC SCH (09:09)
[2022-10-26] MEDS ORDERED: fentaNYL 250 MCG/5 ML INJECTION As Ordered ONE (09:18)
[2022-10-26] MEDS ORDERED: MIDAZOLAM INJ 2MG/2ML VIAL As Ordered ONE (09:18)
[2022-10-26] MEDS ORDERED: LIDOCAINE 2% 100MG/5ML SDV (FOR ANES.) As Ordered ONE (09:19)
[2022-10-26] MEDS ORDERED: ONDANSETRON 4MG 2ML VIAL As Ordered ONE (09:19)
[2022-10-26] MEDS ORDERED: propofoL 200 MG/20 ML VIAL As Ordered ONE (09:19)
[2022-10-26] MEDS ORDERED: EPINEPHrine 1MG/10ML SYRINGE 1.5IN As Ordered ONE (10:18)
[2022-10-26] MEDS ORDERED: THROMBIN 5,000 UNITS VIAL As Ordered ONE (10:18)
[2022-10-26] MEDS ORDERED: CETACAINE SPRAY 5GM As Ordered ONE (10:18)
[2022-10-26] MEDS ORDERED: LIDOCAINE 1% SDV 30ML VIAL As Ordered ONE (10:21)
[2022-10-26] MEDS ORDERED: oxyCODONE 5MG TAB PO PRN (11:30)
[2022-10-26] MEDS ORDERED: HYDROMORPHONE HCL 0.5 MG/ 0.5 ML SYRINGE IV PRN (11:30)
[2022-10-26] MEDS ORDERED: fentaNYL 100 MCG/2 ML INJECTION IV PRN (11:30)
[2022-10-26] MEDS: OMEPRAZOLE SUSPENSION 20MG 10ML ORAL SYRINGE GT SCH ×2 (13:04→20:47)
[2022-10-26] MEDS: METOPROLOL TART 25 MG TABLET PEG SCH (13:05)
[2022-10-26] MEDS: guaiFENesin 200 MG TAB PEG SCH ×2 (13:05→20:47)
[2022-10-26] MEDS: ASPIRIN 81MG CHEW TABLET PEG SCH (13:05)
[2022-10-26] MEDS: FERROUS SULFATE 300MG/5ML UDC LIQUID PO SCH (13:06)
[2022-10-26] MEDS ORDERED: MAG SULF 1GM/100ML (MAG RUN) 1 GM in IV 1 EA IV SCH (15:00)
[2022-10-26] MEDS: LevoFLOXacin 750 MG TABLET PO SCH (17:37)
[2022-10-26] MEDS: FINASTERIDE 5MG TAB PEG SCH (20:46)
[2022-10-27] MEDS: ALBUTEROL SULFATE 2.5MG/0.5ML INH NEB SOLN NEB SCH ×3 (03:42→11:33)
[2022-10-27 05:00] VITALS: BP 137/62
[2022-10-27] MEDS: PROCHLORPERAZINE 5MG TAB PEG SCH ×2 (05:18→13:09)
[2022-10-27 05:37] LABS: MAGNESIUM LEVEL 1.5 MG/DL (1.8-2.4)
[2022-10-27 07:19] LABS: HEMATOCRIT 25.2 % (42.0-52.0); HEMOGLOBIN 8.6 g/dl (13.5-17.5); MEAN CORPUSCULAR HEMOGLOBIN 30.6 pg (27.0-33.0); MEAN CORPUSCULAR HGB CONC 34.1 g/dl (32.0-36.5); MEAN CORPUSCULAR VOLUME 89.7 fl (80.0-96.0); RED BLOOD COUNT 2.81 10^6/uL (4.30-6.10); WHITE BLOOD COUNT 2.8 10^3/uL (4.0-10.0)
[2022-10-27 07:21] LABS: PLATELET COUNT, AUTOMATED 85 10^3/uL (150-450)
[2022-10-27 07:22] LABS: BLOOD UREA NITROGEN 12 MG/DL (9-23); CALCIUM LEVEL 7.4 MG/DL (8.3-10.6); CARBON DIOXIDE LEVEL 28 MMOL/L (20-31); CHLORIDE LEVEL 98 MMOL/L (98-107); CREATININE FOR GFR 0.56 MG/DL (0.70-1.30); GLOMERULAR FILTRATION RATE > 60.0 (>42); GLUCOSE, FASTING 99 MG/DL (74-106); POTASSIUM SERUM 3.1 MMOL/L (3.5-5.1); SODIUM LEVEL 133 MMOL/L (136-145)
[2022-10-27] MEDS ORDERED: MAG SULF 1GM/100ML (MAG RUN) 1 GM in IV 1 EA IV ONE (07:30)
[2022-10-27] MEDS: SUCRALFATE SUSP 1GM/10ML UD GT SCH ×2 (07:57→13:08)
[2022-10-27] MEDS: ACETYLCYSTEINE 20% 4 ML VIAL (200MG/ML) INH SCH (07:59)
[2022-10-27 08:26] LABS: BLAST CELLS 1 % (0-0); LYMPHOCYTES 12 % (16-44); METAMYELOCYTES 3 % (0-0); MONOCYTES 9 % (0-5); NEUTROPHILS 53 % (28-66)
[2022-10-27 08:27] LABS: ANISOCYTOSIS 1+
[2022-10-27 08:28] LABS: HYPOCHROMASIA 1+; PLATELET ESTIMATE DECREASED (NORMAL); POIKILOCYTOSIS 1+
[2022-10-27 09:00] VITALS: BP 139/58
[2022-10-27] MEDS: LIDOCAINE VISCOUS 2% SOLN 15ML UDC PO SCH (09:00)
[2022-10-27] MEDS: NICOTINE 7 MG/24 HR TRANSDERMAL TD SCH (09:00)
[2022-10-27] MEDS ORDERED: POTASSIUM CHLORIDE 10% LIQ 20MEQ/15ML UDC PO ONE (09:00)
[2022-10-27] MEDS: FERROUS SULFATE 300MG/5ML UDC LIQUID PO SCH (09:56)
[2022-10-27] MEDS: OMEPRAZOLE SUSPENSION 20MG 10ML ORAL SYRINGE GT SCH (09:57)
[2022-10-27] MEDS: ASPIRIN 81MG CHEW TABLET PEG SCH (09:57)
[2022-10-27] MEDS: guaiFENesin 200 MG TAB PEG SCH (09:59)
[2022-10-27] MEDS: TAMSULOSIN 0.4 MG CAP PO SCH (09:59)
[2022-10-27] MEDS: METOPROLOL TART 25 MG TABLET PEG SCH (10:00)
[2022-10-27] MEDS ORDERED: MAGNESIUM OXIDE 400MG TAB (MAG-OX) PO ONE (10:00)
[2022-10-27 12:00] VITALS: BP 108/58
[2022-10-27] MEDS ORDERED: Omeprazole Suspension GT (12:49)
[2022-10-27] MEDS ORDERED: SUCR1ORA GT (12:49)
[2022-10-27] MEDS ORDERED: FERR5MLUD PO (12:49)
[2022-10-27] MEDS ORDERED: LEVO1TAB40 PO (12:49)
[2022-10-27] MEDS ORDERED: ASPI81CH8 PEG (12:49)
[2022-10-27] MEDS ORDERED: PROT1TAB2 PEG (13:06)
[2022-10-27] MEDS ORDERED: SUCR1TA PO (14:45)
[2022-10-28 15:08] LABS: BODY FLUID CULTURE Not indicated. (.); LEGIONELLA ANTIGEN URINE Negative (Negative); ORGANISM ID Not indicated. (.); SPECIMEN SOURCE Urine (.); URINE STREP PNEUMONIAE ANTIGEN Negative (Negative)
== END 2022-10-27 14:42 | disposition home health service (06) | DRG 383 ==
LOC: M ED 11:29 → M ED INP 15:29 → M PCU 20:54
PROVIDERS: ADMIT Internal Medicine; ATTEND Internal Medicine
PROC: 30233N1 Transfusion of Nonautologous Red Blood Cells into Peripheral Vein, Percutaneous Approach (ICD-10-PCS; 2022-10-20)
PROC: 0DJD8ZZ Inspection of Lower Intestinal Tract, Via Natural or Artificial Opening Endoscopic (ICD-10-PCS; 2022-10-21)
PROC: 0DB78ZX Excision of Stomach, Pylorus, Via Natural or Artificial Opening Endoscopic, Diagnostic (ICD-10-PCS; principal; 2022-10-21 16:30)
PROC: 0T9B70Z Drainage of Bladder with Drainage Device, Via Natural or Artificial Opening (ICD-10-PCS; 2022-10-22)
PROC: 0B9C8ZZ Drainage of Right Upper Lung Lobe, Via Natural or Artificial Opening Endoscopic (ICD-10-PCS; 2022-10-26)
DX: K25.9 Gastric ulcer, unspecified as acute or chronic, without hemorrhage or perforation (principal); D61.810 Antineoplastic chemotherapy induced pancytopenia; J96.01 Acute respiratory failure with hypoxia; J18.9 Pneumonia, unspecified organism; D62 Acute posthemorrhagic anemia; N39.0 Urinary tract infection, site not specified; E87.1 Hypo-osmolality and hyponatremia; E87.20 Acidosis, unspecified; E87.3 Alkalosis; D84.821 Immunodeficiency due to drugs; C32.1 Malignant neoplasm of supraglottis; I48.91 Unspecified atrial fibrillation; E78.5 Hyperlipidemia, unspecified; G62.9 Polyneuropathy, unspecified; R25.1 Tremor, unspecified; F17.210 Nicotine dependence, cigarettes, uncomplicated; I95.1 Orthostatic hypotension; N40.1 Benign prostatic hyperplasia with lower urinary tract symptoms; I48.0 Paroxysmal atrial fibrillation; R33.9 Retention of urine, unspecified; B96.1 Klebsiella pneumoniae [K. pneumoniae] as the cause of diseases classified elsewhere; D70.9 Neutropenia, unspecified; K44.9 Diaphragmatic hernia without obstruction or gangrene; B95.2 Enterococcus as the cause of diseases classified elsewhere; K22.4 Dyskinesia of esophagus; K64.8 Other hemorrhoids; K92.1 Melena; Z93.1 Gastrostomy status; Z86.004 Personal history of in-situ neoplasm of other and unspecified digestive organs; Z79.82 Long term (current) use of aspirin; Z93.0 Tracheostomy status; Z79.899 Other long term (current) drug therapy; Z88.0 Allergy status to penicillin; Z88.8 Allergy status to other drugs, medicaments and biological substances

== ENCOUNTER 2022-10-31 11:13 | Inpatient (IN) | payer MEDICARE ==
[~2022-10-31] VITALS: Ht 182.9 cm; Wt 61.4 kg
[~2022-10-31 11:13] MED LIST changes: +ASPI81CH8 PEG; +FERR5MLUD PO; +LEVO1TAB40 PO; +Omeprazole Suspension GT; +PROT1TAB2 PEG; +SUCR1ORA GT; +SUCR1TA PO
[2022-10-31 12:08] LABS: BASO % 0.3 % (0.0-1.0); LYMPH # 0.3 10^3/uL (1.5-5.0); LYMPH % 7.7 % (24.0-44.0); MEAN CORPUSCULAR HEMOGLOBIN 30.5 pg (27.0-33.0); MEAN CORPUSCULAR VOLUME 95.3 fl (80.0-96.0); MONO # 0.4 10^3/uL (0.0-0.8); MONO % 11.2 % (2.0-8.0); NEUTROPHILS # 2.7 10^3/uL (1.5-8.5); NEUTROPHILS % 76.2 % (36.0-66.0); PLATELET COUNT, AUTOMATED 165 10^3/uL (150-450); RED BLOOD COUNT 2.13 10^6/uL (4.30-6.10); WHITE BLOOD COUNT 3.5 10^3/uL (4.0-10.0)
[2022-10-31 12:09] LABS: HEMATOCRIT 20.3 % (42.0-52.0); HEMOGLOBIN 6.5 g/dl (13.5-17.5)
[2022-10-31 12:40] LABS: ALBUMIN 1.8 G/DL (3.2-5.2); ALKALINE PHOSPHATASE 92 U/L (46-116); ALT/SGPT 24 U/L (7.0-40); AST/SGOT 19 U/L (<34); BILIRUBIN,TOTAL 0.3 MG/DL (0.3-1.2); BLOOD UREA NITROGEN 39 MG/DL (9-23); CALCIUM LEVEL 7.5 MG/DL (8.3-10.6); CARBON DIOXIDE LEVEL 28 MMOL/L (20-31); CHLORIDE LEVEL 101 MMOL/L (98-107); CREATININE FOR GFR 0.73 MG/DL (0.70-1.30); GLOMERULAR FILTRATION RATE > 60.0 (>42); GLUCOSE, FASTING 109 MG/DL (74-106); PARTIAL THROMBOPLASTIN TIME 26.3 SECONDS (24.8-34.2); POTASSIUM SERUM 4.3 MMOL/L (3.5-5.1); SODIUM LEVEL 136 MMOL/L (136-145); TOTAL PROTEIN 4.4 G/DL (5.7-8.2)
[2022-10-31] MEDS ORDERED: PANTOPRAZOLE 40MG VIAL IV ONE (12:40)
[2022-10-31] MEDS ORDERED: PANTOPRAZOLE SODIUM 40 MG in D5W 50 ML IV SCH (12:40)
[2022-10-31 12:49] LABS: PROTHROMBIN TIME 13.4 SECONDS (12.5-14.5)
[2022-10-31 13:34] VITALS: BP 111/52
[2022-10-31 13:59] VITALS: BP 114/58
[2022-10-31] MEDS ORDERED: PANT40TA29 PEG (14:17)
[2022-10-31] MEDS ORDERED: LEVO1TAB40 PEG (14:17)
[2022-10-31] MEDS ORDERED: ASPI81CH33 PEG (14:17)
[2022-10-31] MEDS ORDERED: SUCR1TA PEG (14:17)
[2022-10-31] MEDS ORDERED: FERR5MLUD PEG (14:17)
[2022-10-31] MEDS ORDERED: LIDO15SO4 PO (14:17)
[2022-10-31] MEDS ORDERED: GUAI100L6 PEG (14:18)
[2022-10-31 14:22] LABS: RSV AMPLIFICATION NEGATIVE (NEGATIVE)
[2022-10-31] MEDS ORDERED: ONDANSETRON 4MG ORAL DISINTEGRATING TAB PO PRN (14:25)
[2022-10-31] MEDS ORDERED: guaiFENesin SYRUP 200MG 10ML UDC PEG PRN (14:25)
[2022-10-31] MEDS ORDERED: PROCHLORPERAZINE 5MG TAB PEG PRN (14:25)
[2022-10-31] MEDS ORDERED: ONDA8TAB8 PO (14:25)
[2022-10-31] MEDS ORDERED: PROC10TA5 PEG (14:25)
[2022-10-31] MEDS ORDERED: HOME MED LIST COMPLETE! XX SCH (14:30)
[2022-10-31 14:31] VITALS: BP 119/84
[2022-10-31 15:30] VITALS: BP 119/55
[2022-10-31] MEDS: FERROUS SULFATE 300MG/5ML UDC LIQUID PEG SCH (16:39)
[2022-10-31] MEDS: LIDOCAINE VISCOUS 2% SOLN 15ML UDC SSP SCH ×2 (16:39→20:37)
[2022-10-31] MEDS: METOPROLOL TART 25 MG TABLET PEG SCH (16:40)
[2022-10-31] MEDS: SUCRALFATE 1 GM TAB PEG SCH ×2 (16:40→20:36)
[2022-10-31 20:00] VITALS: BP 125/61
[2022-10-31] MEDS: LevoFLOXacin 750 MG TABLET PEG SCH (20:35)
[2022-10-31] MEDS: TAMSULOSIN 0.4 MG CAP PO SCH (20:36)
[2022-10-31] MEDS: FINASTERIDE 5MG TAB PEG SCH (20:36)
[2022-10-31] MEDS: PANTOPRAZOLE 40MG VIAL IV SCH (20:37)
[2022-10-31 21:17] LABS: HEMATOCRIT 22.2 % (42.0-52.0); HEMOGLOBIN 7.2 g/dl (13.5-17.5)
[2022-11-01] VITALS (12 sets, daily range): BP systolic 106–145; BP diastolic 53–67
[2022-11-01 05:11] LABS: HEMATOCRIT 21.4 % (42.0-52.0); MEAN CORPUSCULAR HEMOGLOBIN 31.3 pg (27.0-33.0); MEAN CORPUSCULAR HGB CONC 32.7 g/dl (32.0-36.5); MEAN CORPUSCULAR VOLUME 95.5 fl (80.0-96.0); PLATELET COUNT, AUTOMATED 139 10^3/uL (150-450); RED BLOOD COUNT 2.24 10^6/uL (4.30-6.10); WHITE BLOOD COUNT 2.3 10^3/uL (4.0-10.0)
[2022-11-01 06:52] LABS: ALBUMIN 1.7 G/DL (3.2-5.2); ALKALINE PHOSPHATASE 79 U/L (46-116); ALT/SGPT 21 U/L (7.0-40); AST/SGOT 13 U/L (<34); BILIRUBIN,TOTAL 0.4 MG/DL (0.3-1.2); BLOOD UREA NITROGEN 38 MG/DL (9-23); CALCIUM LEVEL 7.8 MG/DL (8.3-10.6); CARBON DIOXIDE LEVEL 28 MMOL/L (20-31); CHLORIDE LEVEL 106 MMOL/L (98-107); CREATININE FOR GFR 0.66 MG/DL (0.70-1.30); GLOMERULAR FILTRATION RATE > 60.0 (>42); GLUCOSE, FASTING 75 MG/DL (74-106); MAGNESIUM LEVEL 1.6 MG/DL (1.8-2.4); POTASSIUM SERUM 4.1 MMOL/L (3.5-5.1); SODIUM LEVEL 141 MMOL/L (136-145); TOTAL PROTEIN 4.1 G/DL (5.7-8.2)
[2022-11-01] MEDS ORDERED: MAG SULF 1GM/100ML (MAG RUN) 1 GM in IV 1 EA IV ONE (08:00)
[2022-11-01] MEDS: PANTOPRAZOLE 40MG VIAL IV SCH ×2 (08:50→20:19)
[2022-11-01] MEDS: TAMSULOSIN 0.4 MG CAP PO SCH ×2 (09:03→20:18)
[2022-11-01] MEDS: METOPROLOL TART 25 MG TABLET PEG SCH (09:03)
[2022-11-01] MEDS: SUCRALFATE 1 GM TAB PEG SCH ×4 (09:03→20:18)
[2022-11-01] MEDS: LIDOCAINE VISCOUS 2% SOLN 15ML UDC SSP SCH ×3 (09:04→20:19)
[2022-11-01] MEDS: FERROUS SULFATE 300MG/5ML UDC LIQUID PEG SCH (16:15)
[2022-11-01 16:41] LABS: HEMATOCRIT 25.8 % (42.0-52.0); HEMOGLOBIN 8.4 g/dl (13.5-17.5)
[2022-11-01] MEDS: FINASTERIDE 5MG TAB PEG SCH (20:18)
[2022-11-01] MEDS: LevoFLOXacin 750 MG TABLET PEG SCH (20:18)
[2022-11-01 20:33] LABS: HEMATOCRIT 24.2 % (42.0-52.0); HEMOGLOBIN 8.1 g/dl (13.5-17.5)
[2022-11-02] VITALS (22 sets, daily range): BP systolic 73–137; BP diastolic 37–65
[2022-11-02 05:58] LABS: BASO % 0.3 % (0.0-1.0); EOS % 0.9 % (0.0-3.0); LYMPH # 0.4 10^3/uL (1.5-5.0); LYMPH % 12.6 % (24.0-44.0); MEAN CORPUSCULAR HEMOGLOBIN 32.1 pg (27.0-33.0); MEAN CORPUSCULAR HGB CONC 34.1 g/dl (32.0-36.5); MEAN CORPUSCULAR VOLUME 94.1 fl (80.0-96.0); MONO # 0.5 10^3/uL (0.0-0.8); MONO % 14.7 % (2.0-8.0); NEUTROPHILS # 2.4 10^3/uL (1.5-8.5); NEUTROPHILS % 69.2 % (36.0-66.0); PLATELET COUNT, AUTOMATED 187 10^3/uL (150-450); RED BLOOD COUNT 1.87 10^6/uL (4.30-6.10); WHITE BLOOD COUNT 3.5 10^3/uL (4.0-10.0)
[2022-11-02 06:03] LABS: HEMATOCRIT 17.6 % (42.0-52.0)
[2022-11-02 06:24] LABS: BLOOD UREA NITROGEN 27 MG/DL (9-23); CALCIUM LEVEL 7.1 MG/DL (8.3-10.6); CARBON DIOXIDE LEVEL 29 MMOL/L (20-31); CHLORIDE LEVEL 106 MMOL/L (98-107); CREATININE FOR GFR 0.59 MG/DL (0.70-1.30); GLOMERULAR FILTRATION RATE > 60.0 (>42); GLUCOSE, FASTING 98 MG/DL (74-106); MAGNESIUM LEVEL 1.5 MG/DL (1.8-2.4); SODIUM LEVEL 139 MMOL/L (136-145)
[2022-11-02] MEDS ORDERED: NS 1,000 ML IV ONE (07:00)
[2022-11-02] MEDS: PANTOPRAZOLE 40MG VIAL IV SCH ×2 (08:15→21:51)
[2022-11-02] MEDS: MAG SULF 1GM/100ML (MAG RUN) 1 GM in IV 1 EA IV SCH ×2 (08:15→09:28)
[2022-11-02] MEDS: SUCRALFATE 1 GM TAB PEG SCH ×4 (08:15→21:51)
[2022-11-02] MEDS: TAMSULOSIN 0.4 MG CAP PO SCH ×2 (08:16→09:08)
[2022-11-02] MEDS: FERROUS SULFATE 300MG/5ML UDC LIQUID PEG SCH (08:31)
[2022-11-02] MEDS: LIDOCAINE VISCOUS 2% SOLN 15ML UDC SSP SCH ×3 (08:32→21:51)
[2022-11-02 16:28] LABS: MEAN CORPUSCULAR HEMOGLOBIN 30.7 pg (27.0-33.0); MEAN CORPUSCULAR HGB CONC 33.3 g/dl (32.0-36.5); PLATELET COUNT, AUTOMATED 178 10^3/uL (150-450); RED BLOOD COUNT 2.61 10^6/uL (4.30-6.10); WHITE BLOOD COUNT 3.1 10^3/uL (4.0-10.0)
[2022-11-02] MEDS: LevoFLOXacin 750 MG TABLET PEG SCH (21:51)
[2022-11-02] MEDS: FINASTERIDE 5MG TAB PEG SCH (21:51)
[2022-11-02 22:01] LABS: HEMATOCRIT 22.9 % (42.0-52.0); HEMOGLOBIN 7.8 g/dl (13.5-17.5)
[2022-11-03 00:03] VITALS: BP 118/57
[2022-11-03 04:00] VITALS: BP 124/59
[2022-11-03 05:14] LABS: HEMATOCRIT 23.5 % (42.0-52.0); HEMOGLOBIN 7.9 g/dl (13.5-17.5); MEAN CORPUSCULAR HEMOGLOBIN 30.9 pg (27.0-33.0); MEAN CORPUSCULAR HGB CONC 33.6 g/dl (32.0-36.5); MEAN CORPUSCULAR VOLUME 91.8 fl (80.0-96.0); PLATELET COUNT, AUTOMATED 182 10^3/uL (150-450); RED BLOOD COUNT 2.56 10^6/uL (4.30-6.10); WHITE BLOOD COUNT 3.2 10^3/uL (4.0-10.0)
[2022-11-03 05:37] LABS: BLOOD UREA NITROGEN 31 MG/DL (9-23); CALCIUM LEVEL 7.6 MG/DL (8.3-10.6); CARBON DIOXIDE LEVEL 27 MMOL/L (20-31); CHLORIDE LEVEL 106 MMOL/L (98-107); CREATININE FOR GFR 0.59 MG/DL (0.70-1.30); GLOMERULAR FILTRATION RATE > 60.0 (>42); GLUCOSE, FASTING 86 MG/DL (74-106); POTASSIUM SERUM 4.1 MMOL/L (3.5-5.1); SODIUM LEVEL 138 MMOL/L (136-145)
[2022-11-03 05:54] LABS: ATYPICAL LYMPH 5 % (0-5); BASOPHILS 5 % (0-1); BLAST CELLS 1 % (0-0); EOSINOPHILS 4 % (0-3); LYMPHOCYTES 18 % (16-44); MONOCYTES 9 % (0-5); NEUTROPHILS 56 % (28-66); PLATELET ESTIMATE NORMAL (NORMAL); PROMYELOCYTES 1 % (0-0)
[2022-11-03 05:55] LABS: ANISOCYTOSIS 1+
[2022-11-03 07:08] LABS: MAGNESIUM LEVEL 1.6 MG/DL (1.8-2.4)
[2022-11-03 08:04] VITALS: BP 121/60
[2022-11-03] MEDS: LIDOCAINE VISCOUS 2% SOLN 15ML UDC SSP SCH ×3 (09:04→21:22)
[2022-11-03] MEDS: PANTOPRAZOLE 40MG VIAL IV SCH ×2 (09:04→21:22)
[2022-11-03] MEDS: MAGNESIUM OXIDE 400MG TAB (MAG-OX) PEG SCH ×2 (09:05→09:11)
[2022-11-03] MEDS: SUCRALFATE 1 GM TAB PEG SCH ×4 (09:05→21:23)
[2022-11-03] MEDS: FERROUS SULFATE 300MG/5ML UDC LIQUID PEG SCH (09:14)
[2022-11-03 12:00] VITALS: BP 121/58
[2022-11-03 14:20] LABS: HEMOGLOBIN 7.9 g/dl (13.5-17.5)
[2022-11-03 16:00] VITALS: BP 124/84
[2022-11-03 20:00] VITALS: BP 130/61
[2022-11-03] MEDS: FINASTERIDE 5MG TAB PEG SCH (21:22)
[2022-11-03 22:28] LABS: HEMATOCRIT 23.2 % (42.0-52.0); HEMOGLOBIN 7.8 g/dl (13.5-17.5)
[2022-11-04] VITALS: BP 129/60
[2022-11-04 03:54] VITALS: BP 133/63
[2022-11-04 06:29] LABS: BASO % 0.3 % (0.0-1.0); EOS # 0.1 10^3/uL (0.0-0.5); EOS % 1.4 % (0.0-3.0); HEMATOCRIT 24.1 % (42.0-52.0); LYMPH # 0.4 10^3/uL (1.5-5.0); LYMPH % 10.5 % (24.0-44.0); MEAN CORPUSCULAR HEMOGLOBIN 31.3 pg (27.0-33.0); MEAN CORPUSCULAR HGB CONC 33.2 g/dl (32.0-36.5); MEAN CORPUSCULAR VOLUME 94.1 fl (80.0-96.0); MONO # 0.5 10^3/uL (0.0-0.8); NEUTROPHILS # 2.5 10^3/uL (1.5-8.5); NEUTROPHILS % 70.5 % (36.0-66.0); PLATELET COUNT, AUTOMATED 214 10^3/uL (150-450); RED BLOOD COUNT 2.56 10^6/uL (4.30-6.10); WHITE BLOOD COUNT 3.5 10^3/uL (4.0-10.0)
[2022-11-04 06:55] LABS: BLOOD UREA NITROGEN 19 MG/DL (9-23); CALCIUM LEVEL 7.8 MG/DL (8.3-10.6); CARBON DIOXIDE LEVEL 30 MMOL/L (20-31); CHLORIDE LEVEL 103 MMOL/L (98-107); CREATININE FOR GFR 0.58 MG/DL (0.70-1.30); GLOMERULAR FILTRATION RATE > 60.0 (>42); GLUCOSE, FASTING 85 MG/DL (74-106); POTASSIUM SERUM 4.2 MMOL/L (3.5-5.1); SODIUM LEVEL 138 MMOL/L (136-145)
[2022-11-04 07:46] VITALS: BP 132/60
[2022-11-04] MEDS: SUCRALFATE 1 GM TAB PEG SCH (08:26)
[2022-11-04] MEDS: FERROUS SULFATE 300MG/5ML UDC LIQUID PEG SCH (08:26)
[2022-11-04] MEDS: MAGNESIUM OXIDE 400MG TAB (MAG-OX) PEG SCH (08:26)
[2022-11-04] MEDS: PANTOPRAZOLE 40MG VIAL IV SCH (08:26)
[2022-11-04] MEDS: TAMSULOSIN 0.4 MG CAP PO SCH (09:00)
[2022-11-04] MEDS: LIDOCAINE VISCOUS 2% SOLN 15ML UDC SSP SCH (09:00)
[2022-11-04] MEDS ORDERED: MAGN400T2 PEG (10:35)
[2022-11-04 12:00] VITALS: BP 128/72
== END 2022-11-04 13:54 | disposition home health service (06) | DRG 377 ==
LOC: M ED 11:13 → M ED INP 13:45 → ENRESERV 14:31 → M PCU 14:54
PROVIDERS: ADMIT Family Medicine; ATTEND Internal Medicine Nephrology
PROC: 30233N1 Transfusion of Nonautologous Red Blood Cells into Peripheral Vein, Percutaneous Approach (ICD-10-PCS; principal; 2022-10-31)
DX: K92.2 Gastrointestinal hemorrhage, unspecified (principal); E43 Unspecified severe protein-calorie malnutrition; J15.1 Pneumonia due to Pseudomonas; D62 Acute posthemorrhagic anemia; Z68.1 Body mass index [BMI] 19.9 or less, adult; Z93.0 Tracheostomy status; Z93.1 Gastrostomy status; K31.89 Other diseases of stomach and duodenum; C32.1 Malignant neoplasm of supraglottis; F17.210 Nicotine dependence, cigarettes, uncomplicated; D64.81 Anemia due to antineoplastic chemotherapy; G62.9 Polyneuropathy, unspecified; I95.2 Hypotension due to drugs; T45.1X5A Adverse effect of antineoplastic and immunosuppressive drugs, initial encounter; I48.91 Unspecified atrial fibrillation; K20.80 Other esophagitis without bleeding; E78.5 Hyperlipidemia, unspecified; R25.1 Tremor, unspecified; Z79.82 Long term (current) use of aspirin; Z79.899 Other long term (current) drug therapy; Z88.0 Allergy status to penicillin; Z88.8 Allergy status to other drugs, medicaments and biological substances; Z90.49 Acquired absence of other specified parts of digestive tract

== ENCOUNTER 2022-11-14 09:42 | Outpatient (RCR) | payer MEDICARE ==
[~2022-11-14 09:42] MED LIST changes: +ASPI81CH33 PEG; +FERR5MLUD PEG; +GUAI100L6 PEG; +LEVO1TAB40 PEG; +MAGN400T2 PEG; +ONDA8TAB8 PO; +PANT40TA29 PEG; +PROC10TA5 PEG; +SUCR1TA PEG
[2022-11-24] MEDS ORDERED: FERR5MLUD PEG (10:58)
== END 2022-11-25 ==
LOC: M ONCR 09:42
PROVIDERS: ATTEND General Practice
DX: C32.1 Malignant neoplasm of supraglottis (principal)

== ENCOUNTER → 2022-11-29 | Outpatient (CLI) | payer MEDICARE ==
[~2022-11-29] MED LIST changes: +NYST-38 PO; +PROP225T PO
== END ==
LOC: M ONCR 09:37
PROVIDERS: ATTEND General Practice
DX: L98.9 Disorder of the skin and subcutaneous tissue, unspecified (principal); B37.0 Candidal stomatitis

== ENCOUNTER → 2022-12-12 | Outpatient (CLI) | payer MEDICARE ==
[~2022-12-12] MED LIST changes: +LIDO15SO PO; -LIDO15SO4 PO
[2022-12-12 14:10] LABS: HEMATOCRIT 33.4 % (42.0-52.0); HEMOGLOBIN 10.6 g/dl (13.5-17.5); MEAN CORPUSCULAR HEMOGLOBIN 31.3 pg (27.0-33.0); MEAN CORPUSCULAR HGB CONC 31.7 g/dl (32.0-36.5); MEAN CORPUSCULAR VOLUME 98.5 fl (80.0-96.0); PLATELET COUNT, AUTOMATED 144 10^3/uL (150-450); RED BLOOD COUNT 3.39 10^6/uL (4.30-6.10); WHITE BLOOD COUNT 4.9 10^3/uL (4.0-10.0)
[2022-12-12 14:24] LABS: INR 0.94; PROTHROMBIN TIME 12.8 SECONDS (12.5-14.5)
[2022-12-12 14:28] LABS: ALBUMIN 3.3 G/DL (3.2-5.2); ALKALINE PHOSPHATASE 102 U/L (46-116); ALT/SGPT 17 U/L (7.0-40); AST/SGOT 18 U/L (<34); BILIRUBIN,TOTAL 0.6 MG/DL (0.3-1.2); BLOOD UREA NITROGEN 34 MG/DL (9-23); CALCIUM LEVEL 10.8 MG/DL (8.3-10.6); CARBON DIOXIDE LEVEL 32 MMOL/L (20-31); CHLORIDE LEVEL 104 MMOL/L (98-107); CREATININE FOR GFR 0.88 MG/DL (0.70-1.30); GLOMERULAR FILTRATION RATE > 60.0 (>42); GLUCOSE, FASTING 84 MG/DL (74-106); SODIUM LEVEL 140 MMOL/L (136-145); TOTAL PROTEIN 6.9 G/DL (5.7-8.2)
== END ==
LOC: M RAD 13:07
PROVIDERS: ATTEND Urology
DX: R33.9 Retention of urine, unspecified (principal); Z79.01 Long term (current) use of anticoagulants

== ENCOUNTER 2022-12-17 21:50 | Emergency (ER) | payer MEDICARE ==
[~2022-12-17] VITALS: Ht 182.9 cm; Wt 62.8 kg
[2022-12-17 23:01] VITALS: BP 169/75
[2022-12-19] MEDS ORDERED: FERR5MLUD PEG (13:43)
== END 2022-12-17 23:07 | disposition home or self-care (01) ==
LOC: M ED 21:50
DX: T83.098A Other mechanical complication of other urinary catheter, initial encounter (principal); K21.9 Gastro-esophageal reflux disease without esophagitis; N40.0 Benign prostatic hyperplasia without lower urinary tract symptoms; G90.09 Other idiopathic peripheral autonomic neuropathy; F17.200 Nicotine dependence, unspecified, uncomplicated; Z85.21 Personal history of malignant neoplasm of larynx; Z88.8 Allergy status to other drugs, medicaments and biological substances; Z79.899 Other long term (current) drug therapy

== ENCOUNTER → 2022-12-19 | Outpatient (REF) | payer MEDICARE ==
[~2022-12-19] MED LIST changes: -ASPI81CH33 PEG; -FINA5TAB2 PEG; +FINA5TAB2 PO; +LEVO1TAB39 PO; +MAGN400C PO; -TAMS1CAP17 PEG; +TAMS1CAP17 PO
== END ==
LOC: M SMT 16:51
PROVIDERS: ATTEND Urology
DX: R33.9 Retention of urine, unspecified (principal)

== ENCOUNTER → 2022-12-26 | Outpatient (CLI) | payer MEDICARE | LOC: M RAD 13:22 | PROVIDERS: ATTEND Internal Medicine | DX: R91.8 Other nonspecific abnormal finding of lung field (principal) ==

== ENCOUNTER → 2022-12-29 | Outpatient (CLI) | payer MEDICARE ==
[~2022-12-29] MED LIST changes: +BARIUM SULFATE 700 MG TABLET (E-Z-DISK) As Ordered ONE; +E-Z-PAQUE 96% w/w SUSP 176GM BTL As Ordered ONE; +VARIBAR NECTAR 40% w/v 240ML SUSP BTL As Ordered ONE; +VARIBAR PUDDING 40% w/v 230ML TUBE As Ordered ONE
== END ==
LOC: M RAD 11:04
PROVIDERS: ATTEND General Practice
DX: R13.10 Dysphagia, unspecified (principal)

== ENCOUNTER 2023-01-02 08:33 | Day surgery (SDC) | payer MEDICARE ==
[~2023-01-02] VITALS: Ht 182.9 cm; Wt 63.5 kg
[~2023-01-02 08:33] MED LIST changes: -BARIUM SULFATE 700 MG TABLET (E-Z-DISK) As Ordered ONE; -E-Z-PAQUE 96% w/w SUSP 176GM BTL As Ordered ONE; -VARIBAR NECTAR 40% w/v 240ML SUSP BTL As Ordered ONE; -VARIBAR PUDDING 40% w/v 230ML TUBE As Ordered ONE; +ceFAZolin SOD 2 GM in IV 1 EA IV ONE
[2023-01-02] MEDS ORDERED: fentaNYL 100 MCG/2 ML INJECTION As Ordered ONE (09:32)
[2023-01-02] MEDS ORDERED: LIDOCAINE 2% 100MG/5ML SDV (FOR ANES.) As Ordered ONE (09:32)
[2023-01-02] MEDS ORDERED: propofoL 200 MG/20 ML VIAL As Ordered ONE (09:32)
[2023-01-02] MEDS ORDERED: MIDAZOLAM INJ 2MG/2ML VIAL As Ordered ONE (09:32)
[2023-01-02] MEDS ORDERED: ONDANSETRON 4MG 2ML VIAL As Ordered ONE (09:32)
[2023-01-02] MEDS ORDERED: ROCURONIUM BROMIDE 50MG/5ML VIAL As Ordered ONE (09:32)
[2023-01-02] MEDS ORDERED: ACETAMINOPHEN 1000MG 100ML IV BAG As Ordered ONE (11:00)
[2023-01-02] MEDS ORDERED: ONDANSETRON 4MG 2ML VIAL IV PRN (11:25)
[2023-01-02] MEDS ORDERED: LEVO1TAB39 PO (11:45)
[2023-01-02 12:50] VITALS: BP 144/67
[2023-01-05] MEDS ORDERED: ASPI81CH48 PO (10:58)
[2023-01-05] MEDS ORDERED: DILT180C70 (10:58)
[2023-01-05] MEDS ORDERED: PANT20TA6 PO (10:59)
== END 2023-01-02 12:54 | disposition home or self-care (01) ==
LOC: M SDC 08:33
PROVIDERS: ATTEND Urology
DX: R33.9 Retention of urine, unspecified (principal); N40.1 Benign prostatic hyperplasia with lower urinary tract symptoms; I48.91 Unspecified atrial fibrillation; K21.9 Gastro-esophageal reflux disease without esophagitis; D64.9 Anemia, unspecified; G62.9 Polyneuropathy, unspecified; J18.9 Pneumonia, unspecified organism; F17.210 Nicotine dependence, cigarettes, uncomplicated; Z88.8 Allergy status to other drugs, medicaments and biological substances; Z79.899 Other long term (current) drug therapy; Z79.82 Long term (current) use of aspirin
CPT/HCPCS: 52601; 88307; J0131; J0690; J1100; J2250; J2405; J3010

== ENCOUNTER → 2023-01-16 | Outpatient (CLI) | payer MEDICARE ==
[~2023-01-16] MED LIST changes: +ASPI81CH48 PO; +DILT180C70; +PANT20TA6 PO; -ceFAZolin SOD 2 GM in IV 1 EA IV ONE
== END ==
LOC: M PLARAD 10:22
PROVIDERS: ATTEND General Practice
DX: C32.1 Malignant neoplasm of supraglottis (principal)
CPT/HCPCS: 78815; A9552

== ENCOUNTER → 2023-01-17 | Outpatient (CLI) | payer MEDICARE | LOC: M ONCR 10:34 | PROVIDERS: ATTEND General Practice | DX: J69.0 Pneumonitis due to inhalation of food and vomit (principal); R59.9 Enlarged lymph nodes, unspecified; Z90.49 Acquired absence of other specified parts of digestive tract ==

== ENCOUNTER → 2023-02-01 | Outpatient (CLI) | payer MEDICARE | LOC: M ONCR 14:24 | PROVIDERS: ATTEND General Practice | DX: C76.0 Malignant neoplasm of head, face and neck (principal); D73.89 Other diseases of spleen ==

== ENCOUNTER → 2023-02-02 | Outpatient (CLI) | payer MEDICARE | LOC: M PLARAD 14:03 | PROVIDERS: ATTEND General Practice | DX: C32.1 Malignant neoplasm of supraglottis (principal); C77.2 Secondary and unspecified malignant neoplasm of intra-abdominal lymph nodes; R16.1 Splenomegaly, not elsewhere classified; K80.20 Calculus of gallbladder without cholecystitis without obstruction; Z93.1 Gastrostomy status ==

== ENCOUNTER → 2023-02-06 | Outpatient (CLI) | payer MEDICARE | LOC: M RAD 09:05 | PROVIDERS: ATTEND General Practice | DX: C26.1 Malignant neoplasm of spleen (principal) ==

== ENCOUNTER → 2023-03-14 | Day surgery (SDC) | payer MEDICARE ==
[~2023-03-14] VITALS: Ht 182.9 cm; Wt 69.0 kg
[~2023-03-14] MED LIST changes: +NS 1,000 ML IV ONE; +propofoL 200 MG/20 ML VIAL As Ordered ONE
[2023-03-14 15:39] VITALS: TEMP 97.4
[2023-03-14 16:02] VITALS: BP 131/76; O2SAT 98
== END | disposition home or self-care (01) ==
LOC: M OPP 13:16
PROVIDERS: ATTEND Internal Medicine Gastroenterology
DX: K25.4 Chronic or unspecified gastric ulcer with hemorrhage (principal); Z93.1 Gastrostomy status; Z88.8 Allergy status to other drugs, medicaments and biological substances

== ENCOUNTER 2023-04-20 10:29 | Outpatient (RCR) | payer MEDICARE ==
[~2023-04-20 10:29] MED LIST changes: -NS 1,000 ML IV ONE; -propofoL 200 MG/20 ML VIAL As Ordered ONE
== END 2023-04-27 ==
LOC: M PT 10:29
PROVIDERS: ATTEND General Practice
DX: C32.1 Malignant neoplasm of supraglottis (principal); C77.2 Secondary and unspecified malignant neoplasm of intra-abdominal lymph nodes; I89.0 Lymphedema, not elsewhere classified

== ENCOUNTER → 2023-05-09 | Outpatient (REF) | payer MEDICARE | LOC: M LAB REF 16:28 | PROVIDERS: ATTEND Internal Medicine | DX: E83.51 Hypocalcemia (principal) ==

== ENCOUNTER → 2023-06-22 | Outpatient (CLI) | payer MEDICARE ==
[~2023-06-22] MED LIST changes: +SYNT50TA PO
[2023-06-22 13:13] LABS: FREE T4 1.75 NG/DL (0.89-1.76); THYROID STIMULATING HORMONE 8.955 uIU/ML (0.55-4.78)
== END ==
LOC: M ONCR 09:22
PROVIDERS: ATTEND General Practice
DX: C32.1 Malignant neoplasm of supraglottis (principal); R16.1 Splenomegaly, not elsewhere classified; Z71.2 Person consulting for explanation of examination or test findings; Z72.89 Other problems related to lifestyle; Z79.82 Long term (current) use of aspirin; Z79.899 Other long term (current) drug therapy; Z87.891 Personal history of nicotine dependence; Z88.1 Allergy status to other antibiotic agents; Z92.21 Personal history of antineoplastic chemotherapy; Z92.3 Personal history of irradiation; Z93.0 Tracheostomy status
CPT/HCPCS: 31575; 36415; 84439; 84443; G0463

== ENCOUNTER → 2023-07-26 | Outpatient (CLI) | payer MEDICARE ==
[~2023-07-26] MED LIST changes: +B-121TAB3 PO; -DILT180C70; +GASTROGRAFIN SOLUTION 30ML ONE; +ISOVUE-370 76% 100ML VIAL ONE
== END ==
LOC: M PLAIMG 10:19
PROVIDERS: ATTEND Nurse Practitioner
DX: C32.9 Malignant neoplasm of larynx, unspecified (principal)
CPT/HCPCS: 70491; 71260; 74177; Q9963; Q9967

== ENCOUNTER → 2023-08-02 | Outpatient (CLI) | payer MEDICARE ==
[~2023-08-02] MED LIST changes: -GASTROGRAFIN SOLUTION 30ML ONE; -ISOVUE-370 76% 100ML VIAL ONE
== END ==
LOC: M ONCR 13:19
PROVIDERS: ATTEND General Practice
DX: C32.1 Malignant neoplasm of supraglottis (principal); R22.2 Localized swelling, mass and lump, trunk; Z71.2 Person consulting for explanation of examination or test findings; Z79.890 Hormone replacement therapy; Z79.82 Long term (current) use of aspirin; Z79.899 Other long term (current) drug therapy; Z87.891 Personal history of nicotine dependence; Z88.8 Allergy status to other drugs, medicaments and biological substances; Z92.21 Personal history of antineoplastic chemotherapy; Z92.3 Personal history of irradiation
CPT/HCPCS: 10005; 88305; G0463

== ENCOUNTER 2023-08-14 09:49 | Outpatient (RCR) | payer MEDICARE ==
[2023-08-25] MEDS ORDERED: ASPI-161 PO (09:18)
== END 2023-08-27 ==
LOC: M PT 09:49
PROVIDERS: ATTEND General Practice
DX: C32.1 Malignant neoplasm of supraglottis (principal); I89.0 Lymphedema, not elsewhere classified

== ENCOUNTER → 2023-08-25 | Outpatient (CLI) | payer MEDICARE ==
[~2023-08-25] MED LIST changes: +ASPI-161 PO; +HOME MED LIST COMPLETE! XX SCH; +LIDOCAINE 1% MDV 20ML VIAL As Ordered ONE
[2023-08-25 07:50] VITALS: TEMP 98.1
[2023-08-25 08:26] LABS: HEMOGLOBIN 12.1 g/dl (13.5-17.5); MEAN CORPUSCULAR HEMOGLOBIN 31.7 pg (27.0-33.0); MEAN CORPUSCULAR HGB CONC 33.6 g/dl (32.0-36.5); MEAN CORPUSCULAR VOLUME 94.2 fl (80.0-96.0); PLATELET COUNT, AUTOMATED 151 10^3/uL (150-450); RED BLOOD COUNT 3.82 10^6/uL (4.30-6.10); WHITE BLOOD COUNT 4.9 10^3/uL (4.0-10.0)
[2023-08-25 08:36] LABS: INR 1.01
[2023-08-25 12:00] VITALS: BP 145/73; O2SAT 100
== END ==
LOC: M IRPRO 07:29
PROVIDERS: ATTEND Nurse Practitioner
DX: R91.8 Other nonspecific abnormal finding of lung field (principal); J95.811 Postprocedural pneumothorax; C34.12 Malignant neoplasm of upper lobe, left bronchus or lung; Z79.890 Hormone replacement therapy

== ENCOUNTER → 2023-09-05 | Outpatient (CLI) | payer MEDICARE ==
[~2023-09-05] MED LIST changes: -HOME MED LIST COMPLETE! XX SCH; -LIDOCAINE 1% MDV 20ML VIAL As Ordered ONE; +PANT20TA6
== END ==
LOC: M ONCR 13:22
PROVIDERS: ATTEND General Practice
DX: C32.1 Malignant neoplasm of supraglottis (principal); C79.89 Secondary malignant neoplasm of other specified sites; J95.02 Infection of tracheostomy stoma; Z87.891 Personal history of nicotine dependence; Z92.21 Personal history of antineoplastic chemotherapy; Z92.3 Personal history of irradiation; Z71.2 Person consulting for explanation of examination or test findings; Z72.89 Other problems related to lifestyle; Z79.890 Hormone replacement therapy; Z79.82 Long term (current) use of aspirin; Z79.899 Other long term (current) drug therapy; Z88.1 Allergy status to other antibiotic agents
CPT/HCPCS: 31575; G0463

== ENCOUNTER → 2023-09-08 | Outpatient (CLI) | payer MEDICARE | LOC: M RAD 07:52 | PROVIDERS: ATTEND General Practice | DX: C26.1 Malignant neoplasm of spleen (principal); K80.20 Calculus of gallbladder without cholecystitis without obstruction; D18.09 Hemangioma of other sites ==

== ENCOUNTER → 2023-09-11 | Outpatient (CLI) | payer MEDICARE | LOC: M PLARAD 08:51 | PROVIDERS: ATTEND Nurse Practitioner | DX: C32.1 Malignant neoplasm of supraglottis (principal); J98.11 Atelectasis; C78.01 Secondary malignant neoplasm of right lung; C78.02 Secondary malignant neoplasm of left lung; C79.51 Secondary malignant neoplasm of bone; I25.10 Atherosclerotic heart disease of native coronary artery without angina pectoris; K80.20 Calculus of gallbladder without cholecystitis without obstruction; I70.0 Atherosclerosis of aorta; R59.0 Localized enlarged lymph nodes | CPT/HCPCS: 78815; A9552 ==

== ENCOUNTER 2023-09-20 09:41 | Outpatient (RCR) | payer MEDICARE ==
[~2023-09-20 09:41] MED LIST changes: +IRBE150T27 PO; -IRBE150T7 PO
== END 2023-09-27 ==
LOC: M ONCR 09:41
PROVIDERS: ATTEND General Practice
DX: Z51.0 Encounter for antineoplastic radiation therapy (principal); C32.1 Malignant neoplasm of supraglottis; C26.1 Malignant neoplasm of spleen; K80.20 Calculus of gallbladder without cholecystitis without obstruction; D18.09 Hemangioma of other sites

== ENCOUNTER 2023-11-08 12:44 | Emergency (ER) | payer MEDICARE ==
[~2023-11-08] VITALS: Ht 182.9 cm; Wt 69.8 kg
[~2023-11-08 12:44] MED LIST changes: -ASPI-161 PO; +ASPI-615 PO; -LIDO15SO PO; +LIDO15SO8 PO; +POTA8CAP10 PO
[2023-11-08] MEDS: METOCLOPRAMIDE INJ 10MG/2ML VIAL IV ONE (15:14)
[2023-11-08] MEDS: NS 1,000 ML IV ONE (15:14)
[2023-11-08 15:28] LABS: BASO # 0.1 10^3/uL (0.0-0.2); BASO % 0.5 % (0.0-1.0); EOS # 0.1 10^3/uL (0.0-0.5); EOS % 0.9 % (0.0-3.0); HEMATOCRIT 40.4 % (42.0-52.0); HEMOGLOBIN 13.8 g/dl (13.5-17.5); LYMPH # 0.4 10^3/uL (1.5-5.0); LYMPH % 4.7 % (24.0-44.0); MEAN CORPUSCULAR HEMOGLOBIN 31.6 pg (27.0-33.0); MEAN CORPUSCULAR HGB CONC 34.2 g/dl (32.0-36.5); MEAN CORPUSCULAR VOLUME 92.4 fl (80.0-96.0); MONO # 1.4 10^3/uL (0.0-0.8); MONO % 14.6 % (2.0-8.0); NEUTROPHILS # 7.2 10^3/uL (1.5-8.5); NEUTROPHILS % 77.4 % (36.0-66.0); PLATELET COUNT, AUTOMATED 301 10^3/uL (150-450); RED BLOOD COUNT 4.37 10^6/uL (4.30-6.10); WHITE BLOOD COUNT 9.3 10^3/uL (4.0-10.0)
[2023-11-08 15:49] LABS: LIPASE 48 U/L (12-53)
[2023-11-08 15:51] LABS: ALBUMIN 2.3 G/DL (3.2-5.2); ALKALINE PHOSPHATASE 58 U/L (46-116); ALT/SGPT 12 U/L (7.0-40); AST/SGOT < 8 U/L (<34); BILIRUBIN,DIRECT 0.2 MG/DL (<0.4); BILIRUBIN,TOTAL 0.4 MG/DL (0.3-1.2); BLOOD UREA NITROGEN 26 MG/DL (9-23); CALCIUM LEVEL 7.8 MG/DL (8.3-10.6); CARBON DIOXIDE LEVEL 25 MMOL/L (20-31); CHLORIDE LEVEL 103 MMOL/L (98-107); CREATININE FOR GFR 0.93 MG/DL (0.70-1.30); GLOMERULAR FILTRATION RATE > 60.0 (>42); GLUCOSE, FASTING 101 MG/DL (74-106); MAGNESIUM LEVEL 2.2 MG/DL (1.8-2.4); POTASSIUM SERUM 3.4 MMOL/L (3.5-5.1); SODIUM LEVEL 137 MMOL/L (136-145); TOTAL PROTEIN 4.9 G/DL (5.7-8.2)
[2023-11-08] MEDS: PANTOPRAZOLE 40MG VIAL IV ONE (17:33)
[2023-11-08] MEDS ORDERED: REGL10TA6 PO (18:33)
[2023-11-08] MEDS ORDERED: PROT1TAB2 PO (18:34)
[2023-11-08 18:50] VITALS: BP 123/58; TEMP 97.4; O2SAT 98
[2023-11-08] MEDS ORDERED: VANC125C3 PO (19:13)
== END 2023-11-08 18:53 | disposition home or self-care (01) ==
LOC: M ED 12:44
DX: A09 Infectious gastroenteritis and colitis, unspecified (principal); K80.20 Calculus of gallbladder without cholecystitis without obstruction; I48.91 Unspecified atrial fibrillation; Z79.1 Long term (current) use of non-steroidal anti-inflammatories (NSAID); Z79.899 Other long term (current) drug therapy
CPT/HCPCS: 74177; 80048; 80076; 83690; 83735; 85025; 87507; 96361; 96374; 96375; 99284; C9113; J2765

== ENCOUNTER 2023-11-12 19:19 | Emergency (ER) | payer MEDICARE ==
[~2023-11-12] VITALS: Ht 182.9 cm; Wt 67.7 kg
[~2023-11-12 19:19] MED LIST changes: +PROT1TAB2 PO; +REGL10TA6 PO; +VANC125C3 PO
[2023-11-12] MEDS: NS 1,000 ML IV ONE (21:49)
[2023-11-12] MEDS: ONDANSETRON 4MG 2ML VIAL IV ONE (21:49)
[2023-11-12 22:24] LABS: BASO # 0.1 10^3/uL (0.0-0.2); BASO % 0.5 % (0.0-1.0); EOS % 0.3 % (0.0-3.0); HEMATOCRIT 39.1 % (42.0-52.0); HEMOGLOBIN 13.3 g/dl (13.5-17.5); LYMPH # 0.3 10^3/uL (1.5-5.0); LYMPH % 2.2 % (24.0-44.0); MEAN CORPUSCULAR VOLUME 91.1 fl (80.0-96.0); MONO # 1.4 10^3/uL (0.0-0.8); MONO % 11.5 % (2.0-8.0); NEUTROPHILS # 10.1 10^3/uL (1.5-8.5); PLATELET COUNT, AUTOMATED 331 10^3/uL (150-450); RED BLOOD COUNT 4.29 10^6/uL (4.30-6.10); WHITE BLOOD COUNT 12.1 10^3/uL (4.0-10.0)
[2023-11-12 22:26] LABS: LIPASE 72 U/L (12-53)
[2023-11-12 22:28] LABS: ALBUMIN 2.4 G/DL (3.2-5.2); ALKALINE PHOSPHATASE 64 U/L (46-116); ALT/SGPT 10 U/L (7.0-40); AST/SGOT 17 U/L (<34); BILIRUBIN,TOTAL 0.4 MG/DL (0.3-1.2); BLOOD UREA NITROGEN 14 MG/DL (9-23); CALCIUM LEVEL 8.5 MG/DL (8.3-10.6); CARBON DIOXIDE LEVEL 20 MMOL/L (20-31); CHLORIDE LEVEL 106 MMOL/L (98-107); CREATININE FOR GFR 0.97 MG/DL (0.70-1.30); GLOMERULAR FILTRATION RATE > 60.0 (>42); GLUCOSE, FASTING 94 MG/DL (74-106); POTASSIUM SERUM 3.2 MMOL/L (3.5-5.1); SODIUM LEVEL 139 MMOL/L (136-145)
[2023-11-12 22:31] LABS: THYROID STIMULATING HORMONE 10.306 uIU/ML (0.55-4.78)
[2023-11-12] MEDS ORDERED: ISOVUE-370 76% 100ML VIAL As Ordered ONE (22:47)
[2023-11-12] MEDS: POTASSIUM CHLORIDE 10% LIQ 20MEQ/15ML UDC PO ONE (23:23)
[2023-11-13] MEDS ORDERED: ONDA4TAB6 PO (00:48)
[2023-11-13] MEDS ORDERED: METR-265 PO (00:48)
[2023-11-13] MEDS: metroNIDAZOLE (FLAGYL) 500MG TABLET PO ONE (01:03)
[2023-11-13] MEDS: NS 1,000 ML IV ONE (01:14)
[2023-11-13 04:10] VITALS: BP 131/62; TEMP 97.9; O2SAT 99
== END 2023-11-13 04:00 | disposition home or self-care (01) ==
LOC: M ED 19:19
DX: A09 Infectious gastroenteritis and colitis, unspecified (principal); I10 Essential (primary) hypertension; E03.9 Hypothyroidism, unspecified; F17.210 Nicotine dependence, cigarettes, uncomplicated; Z88.8 Allergy status to other drugs, medicaments and biological substances; Z79.1 Long term (current) use of non-steroidal anti-inflammatories (NSAID); Z79.899 Other long term (current) drug therapy
CPT/HCPCS: 71046; 74177; 80053; 81001; 83605; 83690; 84443; 85025; 87507; 96360; 96361; 96374; 99285; J2405; Q9967

== ENCOUNTER 2023-11-15 12:22 | Inpatient (IN) | payer MEDICARE ==
[~2023-11-15] VITALS: Ht 182.9 cm; Wt 63.1 kg
[~2023-11-15 12:22] MED LIST changes: +METR-265 PO; +ONDA4TAB6 PO
[2023-11-15] MEDS ORDERED: KEYT1INJ IV (12:44)
[2023-11-15 13:23] LABS: BASO % 0.3 % (0.0-1.0); EOS # 0.1 10^3/uL (0.0-0.5); EOS % 0.4 % (0.0-3.0); HEMOGLOBIN 12.4 g/dl (13.5-17.5); LYMPH # 0.3 10^3/uL (1.5-5.0); LYMPH % 2.8 % (24.0-44.0); MEAN CORPUSCULAR HEMOGLOBIN 31.1 pg (27.0-33.0); MEAN CORPUSCULAR HGB CONC 34.4 g/dl (32.0-36.5); MEAN CORPUSCULAR VOLUME 90.2 fl (80.0-96.0); MONO # 1.4 10^3/uL (0.0-0.8); MONO % 12.5 % (2.0-8.0); NEUTROPHILS # 9.4 10^3/uL (1.5-8.5); NEUTROPHILS % 82.9 % (36.0-66.0); PLATELET COUNT, AUTOMATED 293 10^3/uL (150-450); RED BLOOD COUNT 3.99 10^6/uL (4.30-6.10); WHITE BLOOD COUNT 11.3 10^3/uL (4.0-10.0)
[2023-11-15 13:49] LABS: CK-MB VALUE MASS 1.3 NG/ML (<3.6); LIPASE 106 U/L (12-53)
[2023-11-15 13:51] LABS: CPK CREATINE PHOSPHOKINASE 38 U/L (46-171); MB/CK RELATIVE INDEX 3.42 (< OR =4)
[2023-11-15 13:53] LABS: ALBUMIN 2.2 G/DL (3.2-5.2); ALKALINE PHOSPHATASE 60 U/L (46-116); ALT/SGPT < 9 U/L (7.0-40); AST/SGOT 12 U/L (<34); BILIRUBIN,DIRECT 0.2 MG/DL (<0.4); BILIRUBIN,TOTAL 0.4 MG/DL (0.3-1.2); BLOOD UREA NITROGEN 10 MG/DL (9-23); CALCIUM LEVEL 8.3 MG/DL (8.3-10.6); CARBON DIOXIDE LEVEL 19 MMOL/L (20-31); CHLORIDE LEVEL 109 MMOL/L (98-107); CREATININE FOR GFR 0.97 MG/DL (0.70-1.30); GLOMERULAR FILTRATION RATE > 60.0 (>42); GLUCOSE, FASTING 75 MG/DL (74-106); POTASSIUM SERUM 2.6 MMOL/L (3.5-5.1); SODIUM LEVEL 142 MMOL/L (136-145); TOTAL PROTEIN 4.7 G/DL (5.7-8.2)
[2023-11-15] MEDS ORDERED: POTASSIUM CHLORIDE 10MEQ SR TABLET PO ONE (13:55)
[2023-11-15 14:01] LABS: RSV AMPLIFICATION NEGATIVE (NEGATIVE)
[2023-11-15] MEDS: NS 1,000 ML IV SCH (14:47)
[2023-11-15] MEDS: KCL 10MEQ/100ML SWI (KRUN) 10 MEQ in IV 1 EA IV ONE ×2 (14:48→17:15)
[2023-11-15] MEDS ORDERED: POTASSIUM CHLORIDE 10% LIQ 20MEQ/15ML UDC PO ONE (14:50)
[2023-11-15 14:54] LABS: MB/CK RELATIVE INDEX 3.22 (< OR =4)
[2023-11-15] MEDS: NS 500 ML IV ONE (16:21)
[2023-11-15] MEDS ORDERED: METO10TA2 PO (18:38)
[2023-11-15] MEDS ORDERED: METR-265 PO (18:38)
[2023-11-15] MEDS ORDERED: ONDA4TAB6 PO (18:38)
[2023-11-15] MEDS ORDERED: VANC125C3 PO (18:38)
[2023-11-15] MEDS ORDERED: LEVO50TA5 PO (18:38)
[2023-11-15] MEDS ORDERED: POTA8CAP10 PO (18:38)
[2023-11-15] MEDS ORDERED: HOME MED LIST COMPLETE! XX SCH (18:40)
[2023-11-15 22:29] VITALS: BP 133/84; TEMP 98.4; O2SAT 97
[2023-11-16] MEDS ORDERED: PROMETHAZINE 25MG/ML 1ML VIAL IV PRN
[2023-11-16] MEDS ORDERED: KETOROLAC 30 MG/ML 1ML VIAL IV PRN
[2023-11-16] MEDS: NS 1,000 ML IV SCH (00:49)
[2023-11-16 04:45] VITALS: BP 102/58; TEMP 98.2; O2SAT 95
[2023-11-16 06:21] LABS: HEMATOCRIT 35.1 % (42.0-52.0); HEMOGLOBIN 12.3 g/dl (13.5-17.5); MEAN CORPUSCULAR HEMOGLOBIN 31.6 pg (27.0-33.0); MEAN CORPUSCULAR VOLUME 90.2 fl (80.0-96.0); PLATELET COUNT, AUTOMATED 251 10^3/uL (150-450); RED BLOOD COUNT 3.89 10^6/uL (4.30-6.10); WHITE BLOOD COUNT 14.8 10^3/uL (4.0-10.0)
[2023-11-16 06:50] LABS: ALKALINE PHOSPHATASE 55 U/L (46-116); ALT/SGPT < 9 U/L (7.0-40); AST/SGOT 13 U/L (<34); BILIRUBIN,TOTAL 0.3 MG/DL (0.3-1.2); BLOOD UREA NITROGEN 9 MG/DL (9-23); CARBON DIOXIDE LEVEL 16 MMOL/L (20-31); CHLORIDE LEVEL 113 MMOL/L (98-107); CREATININE FOR GFR 0.94 MG/DL (0.70-1.30); GLOMERULAR FILTRATION RATE > 60.0 (>42); GLUCOSE, FASTING 60 MG/DL (74-106); POTASSIUM SERUM 2.3 MMOL/L (3.5-5.1); SODIUM LEVEL 146 MMOL/L (136-145); TOTAL PROTEIN 4.3 G/DL (5.7-8.2)
[2023-11-16] MEDS: KCL 10MEQ/100ML SWI (KRUN) IV SCH (08:21)
[2023-11-16 08:36] LABS: MAGNESIUM LEVEL 1.9 MG/DL (1.8-2.4)
[2023-11-16] MEDS: MAG SULF 1GM/100ML (MAG RUN) 1 GM in IV 1 EA IV ONE ×2 (11:30→16:57)
[2023-11-16 14:00] VITALS: BP 128/61; TEMP 97.9; O2SAT 97
[2023-11-16] MEDS: ASPIRIN 81MG ENTERIC TABLET PO SCH (14:00)
[2023-11-16] MEDS: ONDANSETRON 4MG ORAL DISINTEGRATING TAB PO SCH (14:00)
[2023-11-16] MEDS: LEVOTHYROXINE 50MCG TABLET (0.05MG) PO SCH (14:00)
[2023-11-16] MEDS: MAGNESIUM OXIDE 400MG TAB (MAG-OX) PO SCH (14:00)
[2023-11-16 14:35] LABS: MAGNESIUM LEVEL 1.9 MG/DL (1.8-2.4); POTASSIUM SERUM 2.5 MMOL/L (3.5-5.1)
[2023-11-16] MEDS: POTASSIUM CHLORIDE 10% LIQ 20MEQ/15ML UDC PO ONE (16:56)
[2023-11-16] MEDS: metroNIDAZOLE (FLAGYL) 500MG TABLET PO SCH (16:56)
[2023-11-16] MEDS: VANCOMYCIN 125MG CAPSULE PO SCH (18:45)
[2023-11-16 20:12] VITALS: BP 128/60; TEMP 98.4; O2SAT 94
[2023-11-16] MEDS ORDERED: PILL CUTTER 1 EACH XX ONE (21:15)
[2023-11-16] MEDS: FINASTERIDE 5MG TAB PO SCH (21:18)
[2023-11-16] MEDS: dilTIAZem **CD** 180MG CAP PO SCH (21:18)
[2023-11-16 22:12] LABS: BLOOD UREA NITROGEN 7 MG/DL (9-23); CALCIUM LEVEL 8.1 MG/DL (8.3-10.6); CARBON DIOXIDE LEVEL 18 MMOL/L (20-31); CHLORIDE LEVEL 113 MMOL/L (98-107); CREATININE FOR GFR 0.86 MG/DL (0.70-1.30); GLOMERULAR FILTRATION RATE > 60.0 (>42); GLUCOSE, FASTING 74 MG/DL (74-106); MAGNESIUM LEVEL 2.4 MG/DL (1.8-2.4); POTASSIUM SERUM 2.6 MMOL/L (3.5-5.1); SODIUM LEVEL 144 MMOL/L (136-145)
[2023-11-17] MEDS: KCL 10MEQ/100ML SWI (KRUN) 10 MEQ in IV 1 EA IV ONE (01:04)
[2023-11-17 05:17] VITALS: BP 109/58; TEMP 98.1; O2SAT 94
[2023-11-17 07:00] LABS: HEMATOCRIT 29.6 % (42.0-52.0); HEMOGLOBIN 10.4 g/dl (13.5-17.5); MEAN CORPUSCULAR HEMOGLOBIN 31.3 pg (27.0-33.0); MEAN CORPUSCULAR HGB CONC 35.1 g/dl (32.0-36.5); MEAN CORPUSCULAR VOLUME 89.2 fl (80.0-96.0); PLATELET COUNT, AUTOMATED 228 10^3/uL (150-450); RED BLOOD COUNT 3.32 10^6/uL (4.30-6.10); WHITE BLOOD COUNT 9.3 10^3/uL (4.0-10.0)
[2023-11-17 08:14] LABS: BLOOD UREA NITROGEN 6 MG/DL (9-23); CALCIUM LEVEL 7.1 MG/DL (8.3-10.6); CARBON DIOXIDE LEVEL 20 MMOL/L (20-31); CHLORIDE LEVEL 116 MMOL/L (98-107); CREATININE FOR GFR 0.81 MG/DL (0.70-1.30); GLOMERULAR FILTRATION RATE > 60.0 (>42); GLUCOSE, FASTING 69 MG/DL (74-106); MAGNESIUM LEVEL 2.1 MG/DL (1.8-2.4); POTASSIUM SERUM 2.2 MMOL/L (3.5-5.1); SODIUM LEVEL 145 MMOL/L (136-145)
[2023-11-17] MEDS ORDERED: KCL 10MEQ/100ML SWI (KRUN) 10 MEQ in IV 1 EA IV SCH (08:40)
[2023-11-17] MEDS ORDERED: LIDOCAINE 1% MDV 20ML VIAL As Ordered ONE (09:10)
[2023-11-17] MEDS: POTASSIUM CHLORIDE 10MEQ SR TABLET PO SCH (09:10)
[2023-11-17] MEDS: CYANOCOBALAMIN 500 MCG TAB PO SCH (09:10)
[2023-11-17] MEDS: KCL 40MEQ IN D5/0.45NS 1000ML 1,000 ML IV SCH (09:11)
[2023-11-17] MEDS: CALCIUM GLUCONATE 1,000 MG in D5W MINI-BAG PLUS 100 ML IV ONE ×2 (09:11→18:10)
[2023-11-17] MEDS: FIDAXOMICIN 200 MG TAB (DIFICID) PO ONE (12:30)
[2023-11-17] MEDS: KCL 10MEQ/100ML SWI (KRUN) 10 MEQ in IV 1 EA IV SCH ×2 (12:47→21:00)
[2023-11-17] MEDS ORDERED: VARIBAR NECTAR 40% w/v 240ML SUSP BTL As Ordered ONE (12:56)
[2023-11-17] MEDS ORDERED: VARIBAR PUDDING 40% w/v 230ML TUBE As Ordered ONE (12:56)
[2023-11-17] MEDS ORDERED: E-Z-PAQUE 96% w/w SUSP 176GM BTL As Ordered ONE (12:57)
[2023-11-17] MEDS ORDERED: BARIUM SULFATE 700 MG TABLET (E-Z-DISK) As Ordered ONE (12:57)
[2023-11-17 16:52] LABS: ALBUMIN 1.9 G/DL (3.2-5.2); CALCIUM LEVEL 7.8 MG/DL (8.3-10.6); MAGNESIUM LEVEL 2.1 MG/DL (1.8-2.4); POTASSIUM SERUM 2.6 MMOL/L (3.5-5.1)
[2023-11-17] MEDS: SODIUM CHLORIDE 0.9% INJ 10 ML SYR IV SCH (17:09)
[2023-11-17] MEDS ORDERED: POTASSIUM CHLORIDE 10MEQ SR TABLET PO ONE (17:20)
[2023-11-17 20:57] VITALS: BP 120/65; TEMP 98.4; O2SAT 95
[2023-11-17] MEDS: FIDAXOMICIN 200 MG TAB (DIFICID) PO SCH (21:00)
[2023-11-17 22:40] LABS: ALBUMIN 2.2 G/DL (3.2-5.2); CALCIUM LEVEL 8.1 MG/DL (8.3-10.6); POTASSIUM SERUM 2.6 MMOL/L (3.5-5.1)
[2023-11-18 04:55] LABS: ALBUMIN 1.9 G/DL (3.2-5.2); CALCIUM LEVEL 7.5 MG/DL (8.3-10.6); MAGNESIUM LEVEL 1.9 MG/DL (1.8-2.4); POTASSIUM SERUM 2.5 MMOL/L (3.5-5.1)
[2023-11-18] MEDS ORDERED: KCL 10MEQ IN D5/0.45NS 1000ML 1,000 ML IV SCH (05:55)
[2023-11-18 06:00] VITALS: BP 124/66; TEMP 98.4; O2SAT 99
[2023-11-18] MEDS: POTASSIUM CHLORIDE 10MEQ SR TABLET PO SCH (07:05)
[2023-11-18] MEDS: MAG SULF 1GM/100ML (MAG RUN) 1 GM in IV 1 EA IV SCH (07:06)
[2023-11-18] MEDS: LOPERAMIDE 2 MG CAPLET PO ONE (09:35)
[2023-11-18] MEDS: KCL 10MEQ/100ML SWI (KRUN) 10 MEQ in IV 1 EA IV SCH ×2 (09:36→13:57)
[2023-11-18] MEDS: POTASSIUM CHLORIDE 10% LIQ 20MEQ/15ML UDC PO SCH (09:51)
[2023-11-18] MEDS ORDERED: CALCIUM GLUCONATE 1,000 MG in D5W MINI-BAG PLUS 100 ML IV ONE ×2 (10:00→10:25)
[2023-11-18 10:59] LABS: ALBUMIN 2.2 G/DL (3.2-5.2); CALCIUM LEVEL 7.9 MG/DL (8.3-10.6); MAGNESIUM LEVEL 2.7 MG/DL (1.8-2.4)
[2023-11-18 11:27] LABS: CLOSTRIDIUM DIFFICILE PCR NEGATIVE (NEGATIVE)
[2023-11-18] MEDS: CALCIUM GLUCONATE 1,000 MG in D5W MINI-BAG PLUS 100 ML IV ONE ×2 (12:37→18:26)
[2023-11-18 14:00] VITALS: BP 121/65; TEMP 97.9; O2SAT 94
[2023-11-18 14:10] LABS: APPEARANCE, URINE CLEAR (CLEAR); BACTERIA, URINE AUTO NEGATIVE (NEGATIVE); BILIRUBIN, URINE AUTO NEGATIVE (NEGATIVE); BLOOD, URINE BLOOD NEGATIVE (NEGATIVE); COLOR, URINE YELLOW (YELLOW); GLUCOSE, URINE (UA) AUTO NEGATIVE (NEGATIVE); KETONE, URINE AUTO NEGATIVE (NEGATIVE); LEUKOCYTE ESTERASE, URINE AUTO NEGATIVE (NEGATIVE); MUCUS, URINE SMALL (NEGATIVE); NITRITE, URINE AUTO NEGATIVE (NEGATIVE); PROTEIN, URINE AUTO 2+ mg/dL (NEGATIVE); RBC, URINE AUTO 0 /HPF (0-3); SPECIFIC GRAVITY URINE AUTO 1.013 (1.002-1.035); SQUAMOUS EPITHELIAL CELL UR AU 0 /HPF (0-6); UROBILINOGEN, URINE AUTO 0.2 mg/dL (0.0-2.0); WBC, URINE AUTO 1 /HPF (0-3)
[2023-11-18 14:38] LABS: CREATININE,RANDOM URINE 84.2 MG/DL
[2023-11-18] MEDS: CHOLESTYRAMINE 4GM PWD PKT PO ONE (15:59)
[2023-11-18 16:33] LABS: CALCIUM LEVEL 7.9 MG/DL (8.3-10.6); MAGNESIUM LEVEL 2.4 MG/DL (1.8-2.4); POTASSIUM SERUM 3.8 MMOL/L (3.5-5.1)
[2023-11-18 18:22] LABS: BLOOD UREA NITROGEN < 5 MG/DL (9-23); CARBON DIOXIDE LEVEL 25 MMOL/L (20-31); CHLORIDE LEVEL 111 MMOL/L (98-107); CREATININE FOR GFR 0.83 MG/DL (0.70-1.30); GLOMERULAR FILTRATION RATE > 60.0 (>42); GLUCOSE, FASTING 116 MG/DL (74-106); SODIUM LEVEL 138 MMOL/L (136-145)
[2023-11-18 21:51] VITALS: BP 119/66; TEMP 98.2; O2SAT 95
[2023-11-18] MEDS: METOCLOPRAMIDE 10MG TAB PO PRN (22:04)
[2023-11-18 23:02] LABS: ALBUMIN 2.3 G/DL (3.2-5.2); BLOOD UREA NITROGEN < 5 MG/DL (9-23); CALCIUM LEVEL 8.6 MG/DL (8.3-10.6); CARBON DIOXIDE LEVEL 23 MMOL/L (20-31); CHLORIDE LEVEL 110 MMOL/L (98-107); CREATININE FOR GFR 0.74 MG/DL (0.70-1.30); GLOMERULAR FILTRATION RATE > 60.0 (>42); GLUCOSE, FASTING 114 MG/DL (74-106); MAGNESIUM LEVEL 2.4 MG/DL (1.8-2.4); POTASSIUM SERUM 4.1 MMOL/L (3.5-5.1); SODIUM LEVEL 137 MMOL/L (136-145)
[2023-11-19 04:39] LABS: BASO % 0.3 % (0.0-1.0); EOS # 0.1 10^3/uL (0.0-0.5); EOS % 1.2 % (0.0-3.0); HEMATOCRIT 32.7 % (42.0-52.0); HEMOGLOBIN 11.4 g/dl (13.5-17.5); LYMPH # 0.3 10^3/uL (1.5-5.0); LYMPH % 2.6 % (24.0-44.0); MEAN CORPUSCULAR HEMOGLOBIN 30.9 pg (27.0-33.0); MEAN CORPUSCULAR HGB CONC 34.9 g/dl (32.0-36.5); MEAN CORPUSCULAR VOLUME 88.6 fl (80.0-96.0); MONO # 1.4 10^3/uL (0.0-0.8); MONO % 12.6 % (2.0-8.0); NEUTROPHILS # 9.4 10^3/uL (1.5-8.5); NEUTROPHILS % 82.5 % (36.0-66.0); PLATELET COUNT, AUTOMATED 231 10^3/uL (150-450); RED BLOOD COUNT 3.69 10^6/uL (4.30-6.10); WHITE BLOOD COUNT 11.4 10^3/uL (4.0-10.0)
[2023-11-19 05:19] VITALS: BP 134/62; TEMP 98.4; O2SAT 97
[2023-11-19 06:08] LABS: BLOOD UREA NITROGEN < 5 MG/DL (9-23); CALCIUM LEVEL 7.9 MG/DL (8.3-10.6); CARBON DIOXIDE LEVEL 22 MMOL/L (20-31); CHLORIDE LEVEL 112 MMOL/L (98-107); CREATININE FOR GFR 0.78 MG/DL (0.70-1.30); FOLATE 14.56 NG/ML (>5.4); GLOMERULAR FILTRATION RATE > 60.0 (>42); GLUCOSE, FASTING 122 MG/DL (74-106); POTASSIUM SERUM 3.4 MMOL/L (3.5-5.1); SODIUM LEVEL 137 MMOL/L (136-145)
[2023-11-19] MEDS: LOPERAMIDE 2 MG CAPLET PO PRN (06:40)
[2023-11-19 06:42] LABS: VITAMIN B12 LEVEL 1834 PG/ML (211-911)
[2023-11-19 06:46] LABS: PROCALCITONIN 0.13 ng/ml
[2023-11-19] MEDS ORDERED: POTASSIUM CHLORIDE 10% LIQ 20MEQ/15ML UDC PO SCH (09:00)
[2023-11-19 09:10] LABS: MAGNESIUM LEVEL 2.1 MG/DL (1.8-2.4)
[2023-11-19] MEDS: KCL 10MEQ/100ML SWI (KRUN) 10 MEQ in IV 1 EA IV SCH (10:08)
[2023-11-19] MEDS: POTASSIUM CHLORIDE 10% LIQ 20MEQ/15ML UDC PO SCH (10:42)
[2023-11-19 10:44] LABS: BLOOD UREA NITROGEN 5 MG/DL (9-23); CALCIUM LEVEL 7.8 MG/DL (8.3-10.6); CARBON DIOXIDE LEVEL 21 MMOL/L (20-31); CHLORIDE LEVEL 115 MMOL/L (98-107); CREATININE FOR GFR 0.74 MG/DL (0.70-1.30); GLOMERULAR FILTRATION RATE > 60.0 (>42); GLUCOSE, FASTING 120 MG/DL (74-106); POTASSIUM SERUM 3.6 MMOL/L (3.5-5.1); SODIUM LEVEL 139 MMOL/L (136-145)
[2023-11-19 11:02] LABS: ALBUMIN 2.2 G/DL (3.2-5.2); BLOOD UREA NITROGEN 6 MG/DL (9-23); CALCIUM LEVEL 8.1 MG/DL (8.3-10.6); CARBON DIOXIDE LEVEL 23 MMOL/L (20-31); CHLORIDE LEVEL 111 MMOL/L (98-107); CREATININE FOR GFR 0.81 MG/DL (0.70-1.30); GLOMERULAR FILTRATION RATE > 60.0 (>42); GLUCOSE, FASTING 105 MG/DL (74-106); MAGNESIUM LEVEL 2.1 MG/DL (1.8-2.4); POTASSIUM SERUM 3.6 MMOL/L (3.5-5.1); SODIUM LEVEL 138 MMOL/L (136-145)
[2023-11-19 14:00] VITALS: BP 100/60; TEMP 97.9; O2SAT 92
[2023-11-19] MEDS: GLYCERIN ADULT SUPP PR ONE (15:49)
[2023-11-19] MEDS: KCL 40MEQ in NS 1000ML 1,000 ML IV SCH (16:18)
[2023-11-19 16:49] LABS: BLOOD UREA NITROGEN 6 MG/DL (9-23); CALCIUM LEVEL 7.9 MG/DL (8.3-10.6); CARBON DIOXIDE LEVEL 21 MMOL/L (20-31); CHLORIDE LEVEL 114 MMOL/L (98-107); CREATININE FOR GFR 0.81 MG/DL (0.70-1.30); GLOMERULAR FILTRATION RATE > 60.0 (>42); GLUCOSE, FASTING 109 MG/DL (74-106); SODIUM LEVEL 138 MMOL/L (136-145)
[2023-11-19 18:50] VITALS: BP 110/52
[2023-11-19 20:37] VITALS: BP 124/79; TEMP 98.6; O2SAT 95
[2023-11-19] MEDS: dilTIAZem 120MG **CD** CAPSULE PO SCH (20:41)
[2023-11-20 05:16] VITALS: BP 122/68; TEMP 98.1; O2SAT 95
[2023-11-20 06:26] LABS: BASO % 0.3 % (0.0-1.0); EOS # 0.2 10^3/uL (0.0-0.5); EOS % 1.9 % (0.0-3.0); HEMATOCRIT 34.5 % (42.0-52.0); HEMOGLOBIN 11.5 g/dl (13.5-17.5); LYMPH # 0.4 10^3/uL (1.5-5.0); LYMPH % 3.3 % (24.0-44.0); MEAN CORPUSCULAR HGB CONC 33.3 g/dl (32.0-36.5); MONO # 1.1 10^3/uL (0.0-0.8); MONO % 10.2 % (2.0-8.0); NEUTROPHILS # 9.3 10^3/uL (1.5-8.5); NEUTROPHILS % 83.6 % (36.0-66.0); PLATELET COUNT, AUTOMATED 240 10^3/uL (150-450); RED BLOOD COUNT 3.71 10^6/uL (4.30-6.10); WHITE BLOOD COUNT 11.1 10^3/uL (4.0-10.0)
[2023-11-20 06:52] LABS: BLOOD UREA NITROGEN 6 MG/DL (9-23); CALCIUM LEVEL 7.9 MG/DL (8.3-10.6); CARBON DIOXIDE LEVEL 21 MMOL/L (20-31); CHLORIDE LEVEL 116 MMOL/L (98-107); GLOMERULAR FILTRATION RATE > 60.0 (>42); GLUCOSE, FASTING 84 MG/DL (74-106); POTASSIUM SERUM 4.1 MMOL/L (3.5-5.1); SODIUM LEVEL 143 MMOL/L (136-145)
[2023-11-20 06:57] LABS: PROCALCITONIN 0.11 ng/ml
[2023-11-20] MEDS: GLYCERIN ADULT SUPP PR ONE ×2 (11:17→14:16)
[2023-11-20 12:09] LABS: ANTINUCLEAR ANTIBODIES DIRECT Negative (Negative)
[2023-11-20 14:00] VITALS: BP 121/68; TEMP 98.1; O2SAT 96
[2023-11-20] MEDS: D5W 1,000 ML IV ONE (14:15)
[2023-11-20] MEDS: KCL 10MEQ IN D5/0.45NS 1000ML 1,000 ML IV SCH (14:15)
[2023-11-20 18:26] LABS: CALCIUM LEVEL 7.5 MG/DL (8.3-10.6); MAGNESIUM LEVEL 2.1 MG/DL (1.8-2.4); POTASSIUM SERUM 3.6 MMOL/L (3.5-5.1)
[2023-11-20 18:27] LABS: BLOOD UREA NITROGEN 9 MG/DL (9-23); CALCIUM LEVEL 7.8 MG/DL (8.3-10.6); CARBON DIOXIDE LEVEL 22 MMOL/L (20-31); CHLORIDE LEVEL 111 MMOL/L (98-107); CREATININE FOR GFR 0.82 MG/DL (0.70-1.30); GLOMERULAR FILTRATION RATE > 60.0 (>42); GLUCOSE, FASTING 101 MG/DL (74-106); POTASSIUM SERUM 3.6 MMOL/L (3.5-5.1); SODIUM LEVEL 139 MMOL/L (136-145)
[2023-11-20 21:30] VITALS: BP 119/67; TEMP 97.2; O2SAT 95
[2023-11-21 05:42] VITALS: BP 113/61; TEMP 98.4; O2SAT 94
[2023-11-21 07:03] LABS: BASO % 0.3 % (0.0-1.0); EOS # 0.3 10^3/uL (0.0-0.5); EOS % 3.1 % (0.0-3.0); HEMATOCRIT 33.2 % (42.0-52.0); HEMOGLOBIN 11.4 g/dl (13.5-17.5); LYMPH # 0.4 10^3/uL (1.5-5.0); LYMPH % 4.5 % (24.0-44.0); MEAN CORPUSCULAR HEMOGLOBIN 31.7 pg (27.0-33.0); MEAN CORPUSCULAR HGB CONC 34.3 g/dl (32.0-36.5); MEAN CORPUSCULAR VOLUME 92.2 fl (80.0-96.0); MONO # 1.3 10^3/uL (0.0-0.8); MONO % 13.7 % (2.0-8.0); NEUTROPHILS # 7.3 10^3/uL (1.5-8.5); NEUTROPHILS % 77.5 % (36.0-66.0); PLATELET COUNT, AUTOMATED 205 10^3/uL (150-450); WHITE BLOOD COUNT 9.4 10^3/uL (4.0-10.0)
[2023-11-21 07:27] LABS: CALCIUM LEVEL 7.6 MG/DL (8.3-10.6)
[2023-11-21 07:32] LABS: BLOOD UREA NITROGEN 7 MG/DL (9-23); CALCIUM LEVEL 7.8 MG/DL (8.3-10.6); CARBON DIOXIDE LEVEL 23 MMOL/L (20-31); CHLORIDE LEVEL 109 MMOL/L (98-107); CREATININE FOR GFR 0.83 MG/DL (0.70-1.30); GLOMERULAR FILTRATION RATE > 60.0 (>42); GLUCOSE, FASTING 108 MG/DL (74-106); POTASSIUM SERUM 3.2 MMOL/L (3.5-5.1); SODIUM LEVEL 138 MMOL/L (136-145)
[2023-11-21 09:00] VITALS: BP 105/52; TEMP 97.9; O2SAT 96
[2023-11-21] MEDS: SIMETHICONE 80MG CHEW TAB PO SCH (10:32)
[2023-11-21] MEDS: KCL 10MEQ IN D5/0.45NS 1000ML 1,000 ML IV SCH (12:36)
[2023-11-21] MEDS: PINK BISMUTH SUSP 524MG/30ML ORAL SYRINGE PO SCH (13:07)
[2023-11-21 14:00] VITALS: BP 110/58; TEMP 98.1; O2SAT 96
[2023-11-21] MEDS: HEPARIN SOD (PORCINE) 5000UNITS/ML 1ML VIAL/SYRINGE SQ SCH (17:15)
[2023-11-21 19:33] LABS: CALCIUM LEVEL 8.1 MG/DL (8.3-10.6)
[2023-11-21 19:37] LABS: BLOOD UREA NITROGEN 6 MG/DL (9-23); CALCIUM LEVEL 8.2 MG/DL (8.3-10.6); CARBON DIOXIDE LEVEL 24 MMOL/L (20-31); CHLORIDE LEVEL 110 MMOL/L (98-107); CREATININE FOR GFR 0.92 MG/DL (0.70-1.30); GLOMERULAR FILTRATION RATE > 60.0 (>42); GLUCOSE, FASTING 111 MG/DL (74-106); POTASSIUM SERUM 3.3 MMOL/L (3.5-5.1); SODIUM LEVEL 138 MMOL/L (136-145)
[2023-11-21 20:19] VITALS: BP 109/63; TEMP 97.9; O2SAT 94
[2023-11-21] MEDS: KCL 40MEQ IN D5/0.45NS 1000ML 1,000 ML IV SCH (21:29)
[2023-11-22 02:40] LABS: BLOOD UREA NITROGEN 7 MG/DL (9-23); CARBON DIOXIDE LEVEL 23 MMOL/L (20-31); CHLORIDE LEVEL 109 MMOL/L (98-107); CREATININE FOR GFR 0.93 MG/DL (0.70-1.30); GLOMERULAR FILTRATION RATE > 60.0 (>42); GLUCOSE, FASTING 116 MG/DL (74-106); POTASSIUM SERUM 3.5 MMOL/L (3.5-5.1); SODIUM LEVEL 136 MMOL/L (136-145)
[2023-11-22 05:32] VITALS: BP 104/73; TEMP 97.9; O2SAT 93
[2023-11-22] MEDS: HEPARIN SOD (PORCINE) 5000UNITS/ML 1ML VIAL/SYRINGE SQ SCH (06:00)
[2023-11-22 06:42] LABS: BASO % 0.4 % (0.0-1.0); EOS # 0.3 10^3/uL (0.0-0.5); EOS % 3.1 % (0.0-3.0); HEMATOCRIT 33.9 % (42.0-52.0); HEMOGLOBIN 11.6 g/dl (13.5-17.5); LYMPH # 0.4 10^3/uL (1.5-5.0); MEAN CORPUSCULAR HGB CONC 34.2 g/dl (32.0-36.5); MEAN CORPUSCULAR VOLUME 90.6 fl (80.0-96.0); MONO # 1.2 10^3/uL (0.0-0.8); NEUTROPHILS # 7.5 10^3/uL (1.5-8.5); NEUTROPHILS % 78.8 % (36.0-66.0); PLATELET COUNT, AUTOMATED 208 10^3/uL (150-450); RED BLOOD COUNT 3.74 10^6/uL (4.30-6.10); WHITE BLOOD COUNT 9.5 10^3/uL (4.0-10.0)
[2023-11-22 07:14] LABS: ALBUMIN 2.4 G/DL (3.2-5.2); CALCIUM LEVEL 8.2 MG/DL (8.3-10.6)
[2023-11-22 07:21] LABS: BLOOD UREA NITROGEN 7 MG/DL (9-23); CALCIUM LEVEL 8.2 MG/DL (8.3-10.6); CARBON DIOXIDE LEVEL 21 MMOL/L (20-31); CHLORIDE LEVEL 113 MMOL/L (98-107); CREATININE FOR GFR 0.91 MG/DL (0.70-1.30); GLOMERULAR FILTRATION RATE > 60.0 (>42); GLUCOSE, FASTING 111 MG/DL (74-106); POTASSIUM SERUM 3.5 MMOL/L (3.5-5.1); SODIUM LEVEL 139 MMOL/L (136-145)
[2023-11-22] MEDS: MAGNESIUM CITRATE 300ML BTL PO ONE (14:04)
[2023-11-22 14:30] VITALS: BP 105/73; TEMP 97.9; O2SAT 98
[2023-11-22] MEDS: FLEET ENEMA PR ONE (16:36)
[2023-11-22 18:41] LABS: ALBUMIN 2.3 G/DL (3.2-5.2); CALCIUM LEVEL 8.6 MG/DL (8.3-10.6)
[2023-11-22 18:43] LABS: BLOOD UREA NITROGEN 9 MG/DL (9-23); CALCIUM LEVEL 8.5 MG/DL (8.3-10.6); CARBON DIOXIDE LEVEL 20 MMOL/L (20-31); CHLORIDE LEVEL 111 MMOL/L (98-107); CREATININE FOR GFR 1.12 MG/DL (0.70-1.30); GLOMERULAR FILTRATION RATE > 60.0 (>42); GLUCOSE, FASTING 134 MG/DL (74-106); POTASSIUM SERUM 3.9 MMOL/L (3.5-5.1); SODIUM LEVEL 136 MMOL/L (136-145)
[2023-11-22 22:25] VITALS: BP 108/67; TEMP 98.1; O2SAT 91
[2023-11-23] MEDS: SIMETHICONE 40MG/0.6ML DROPS 30ML PO PRN (00:02)
[2023-11-23 04:40] VITALS: BP 107/70; TEMP 97.7; O2SAT 9
[2023-11-23 06:06] LABS: BASO # 0.1 10^3/uL (0.0-0.2); BASO % 0.6 % (0.0-1.0); EOS # 0.3 10^3/uL (0.0-0.5); EOS % 2.9 % (0.0-3.0); HEMATOCRIT 35.2 % (42.0-52.0); HEMOGLOBIN 11.9 g/dl (13.5-17.5); LYMPH # 0.5 10^3/uL (1.5-5.0); LYMPH % 5.7 % (24.0-44.0); MEAN CORPUSCULAR HEMOGLOBIN 31.4 pg (27.0-33.0); MEAN CORPUSCULAR HGB CONC 33.8 g/dl (32.0-36.5); MEAN CORPUSCULAR VOLUME 92.9 fl (80.0-96.0); MONO # 1.1 10^3/uL (0.0-0.8); MONO % 12.6 % (2.0-8.0); NEUTROPHILS % 76.4 % (36.0-66.0); PLATELET COUNT, AUTOMATED 228 10^3/uL (150-450); RED BLOOD COUNT 3.79 10^6/uL (4.30-6.10); WHITE BLOOD COUNT 9.1 10^3/uL (4.0-10.0)
[2023-11-23 09:00] VITALS: BP 108/69; TEMP 97.9; O2SAT 94
[2023-11-23 14:00] VITALS: BP 105/67; TEMP 97.7; O2SAT 94
[2023-11-23 16:10] LABS: Chitobioside Carbohydrat (ACCA 34 units (0-90); Laminaribioside Carbohyd (ALCA 16 units (0-60); Mannobioside Carbohydrat (AMCA 7 units (0-100); Saccharomyces cerevisiae IgG A 28 units (0-50); TISSUE TRANSGLUTAMINASE IgA <2 U/mL (0-3)
[2023-11-23] MEDS: FLEET ENEMA PR ONE (18:13)
[2023-11-23] MEDS: BISACODYL 5MG TAB PO ONE (18:14)
[2023-11-23 21:00] VITALS: BP_SYST 106; BP_SYST 110; BP_DIAS 70; TEMP 98.1; O2SAT 96
[2023-11-24] VITALS (9 sets, daily range): BP systolic 95–118; BP diastolic 53–69; TEMP 96.8–97.9; O2SAT 95–98
[2023-11-24 08:25] LABS: HEMATOCRIT 35.2 % (42.0-52.0); HEMOGLOBIN 11.5 g/dl (13.5-17.5); MEAN CORPUSCULAR HEMOGLOBIN 31.2 pg (27.0-33.0); MEAN CORPUSCULAR HGB CONC 32.7 g/dl (32.0-36.5); MEAN CORPUSCULAR VOLUME 95.4 fl (80.0-96.0); PLATELET COUNT, AUTOMATED 221 10^3/uL (150-450); RED BLOOD COUNT 3.69 10^6/uL (4.30-6.10); WHITE BLOOD COUNT 9.3 10^3/uL (4.0-10.0)
[2023-11-24 08:49] LABS: BLOOD UREA NITROGEN 6 MG/DL (9-23); CARBON DIOXIDE LEVEL 20 MMOL/L (20-31); CHLORIDE LEVEL 116 MMOL/L (98-107); GLOMERULAR FILTRATION RATE > 60.0 (>42); GLUCOSE, FASTING 110 MG/DL (74-106); POTASSIUM SERUM 4.1 MMOL/L (3.5-5.1); SODIUM LEVEL 138 MMOL/L (136-145)
[2023-11-24] MEDS: LR 1,000 ML IV ONE (13:03)
[2023-11-24 13:24] LABS: CALCIUM LEVEL 8.6 MG/DL (8.3-10.6)
[2023-11-24] MEDS: ceFAZolin 2 GM/D5W 50 ML IV BAG As Ordered ONE (17:21)
[2023-11-24] MEDS ORDERED: propofoL 200 MG/20 ML VIAL As Ordered ONE (17:33)
[2023-11-24] MEDS ORDERED: fentaNYL 100 MCG/2 ML INJECTION As Ordered ONE (17:33)
[2023-11-24] MEDS ORDERED: LIDOCAINE 2% 100MG/5ML SDV (FOR ANES.) As Ordered ONE (17:33)
[2023-11-24] MEDS ORDERED: MIDAZOLAM INJ 2MG/2ML VIAL As Ordered ONE (17:33)
[2023-11-24] MEDS ORDERED: ACETAMINOPHEN 1000MG 100ML IV BAG As Ordered ONE (17:34)
[2023-11-24] MEDS ORDERED: dexmedeTOMIDine (4MCG/ML)200MCG/50ML BTL (PRECEDEX) As Ordered ONE (17:36)
[2023-11-24] MEDS ORDERED: ePHEDrine SULFATE 25 MG/5 ML(5MG/ML) SYRINGE As Ordered ONE (17:53)
[2023-11-25 00:40] VITALS: BP 122/64; TEMP 97.9; O2SAT 99
[2023-11-25 02:00] VITALS: BP 128/59; TEMP 97.9; O2SAT 97
[2023-11-25 05:35] VITALS: BP 122/57; TEMP 98.1; O2SAT 98
[2023-11-25 08:24] LABS: BLOOD UREA NITROGEN 6 MG/DL (9-23); CALCIUM LEVEL 8.2 MG/DL (8.3-10.6); CARBON DIOXIDE LEVEL 20 MMOL/L (20-31); CHLORIDE LEVEL 115 MMOL/L (98-107); CREATININE FOR GFR 1.09 MG/DL (0.70-1.30); GLOMERULAR FILTRATION RATE > 60.0 (>42); GLUCOSE, FASTING 97 MG/DL (74-106); POTASSIUM SERUM 4.4 MMOL/L (3.5-5.1); SODIUM LEVEL 139 MMOL/L (136-145)
[2023-11-25 09:42] LABS: HEMATOCRIT 33.5 % (42.0-52.0); HEMOGLOBIN 10.9 g/dl (13.5-17.5); MEAN CORPUSCULAR HEMOGLOBIN 31.1 pg (27.0-33.0); MEAN CORPUSCULAR HGB CONC 32.5 g/dl (32.0-36.5); MEAN CORPUSCULAR VOLUME 95.4 fl (80.0-96.0); PLATELET COUNT, AUTOMATED 203 10^3/uL (150-450); RED BLOOD COUNT 3.51 10^6/uL (4.30-6.10); WHITE BLOOD COUNT 9.8 10^3/uL (4.0-10.0)
[2023-11-25 12:36] LABS: MAGNESIUM LEVEL 1.9 MG/DL (1.8-2.4); PHOSPHORUS LEVEL 2.6 MG/DL (2.4-5.1)
[2023-11-25 14:00] VITALS: BP 111/61; TEMP 97.9; O2SAT 98
[2023-11-25 20:28] VITALS: BP 113/61; TEMP 99.1; O2SAT 97
[2023-11-26] MEDS: FAMOTIDINE IV BAG 20 MG in IV 1 EA IV ONE (02:08)
[2023-11-26] MEDS: PANTOPRAZOLE 40MG VIAL IV SCH (02:45)
[2023-11-26 05:55] VITALS: BP 113/61; TEMP 98.6; O2SAT 98
[2023-11-26 07:00] LABS: HEMATOCRIT 32.7 % (42.0-52.0); MEAN CORPUSCULAR HEMOGLOBIN 32.2 pg (27.0-33.0); MEAN CORPUSCULAR HGB CONC 33.6 g/dl (32.0-36.5); MEAN CORPUSCULAR VOLUME 95.6 fl (80.0-96.0); PLATELET COUNT, AUTOMATED 181 10^3/uL (150-450); RED BLOOD COUNT 3.42 10^6/uL (4.30-6.10); WHITE BLOOD COUNT 8.9 10^3/uL (4.0-10.0)
[2023-11-26 07:12] LABS: BLOOD UREA NITROGEN 9 MG/DL (9-23); CALCIUM LEVEL 8.3 MG/DL (8.3-10.6); CARBON DIOXIDE LEVEL 22 MMOL/L (20-31); CHLORIDE LEVEL 111 MMOL/L (98-107); CREATININE FOR GFR 0.95 MG/DL (0.70-1.30); GLOMERULAR FILTRATION RATE > 60.0 (>42); GLUCOSE, FASTING 96 MG/DL (74-106); MAGNESIUM LEVEL 1.7 MG/DL (1.8-2.4); PHOSPHORUS LEVEL 2.4 MG/DL (2.4-5.1); POTASSIUM SERUM 4.2 MMOL/L (3.5-5.1); SODIUM LEVEL 136 MMOL/L (136-145)
[2023-11-26] MEDS ORDERED: PANTOPRAZOLE 40MG VIAL IV SCH (09:00)
[2023-11-26] MEDS: MAG SULF 1GM/100ML (MAG RUN) 1 GM in IV 1 EA IV ONE (10:24)
[2023-11-26] MEDS: GASTROGRAFIN SOLUTION 30ML PO SCH (11:23)
[2023-11-26] MEDS: methylPREDNISolone 40MG 1ML VIAL IV SCH (11:23)
[2023-11-26 11:43] LABS: THYROID STIMULATING HORMONE 4.156 uIU/ML (0.55-4.78)
[2023-11-26] MEDS ORDERED: ISOVUE-370 76% 100ML VIAL As Ordered ONE (12:27)
[2023-11-26 14:00] VITALS: BP 127/64; TEMP 97.7; O2SAT 97
[2023-11-26 19:47] VITALS: BP 127/65; TEMP 98.1
[2023-11-27 04:52] VITALS: BP 127/66; TEMP 97.7; O2SAT 97
[2023-11-27 10:13] LABS: HEMATOCRIT 32.3 % (42.0-52.0); HEMOGLOBIN 10.7 g/dl (13.5-17.5); MEAN CORPUSCULAR HEMOGLOBIN 31.1 pg (27.0-33.0); MEAN CORPUSCULAR HGB CONC 33.1 g/dl (32.0-36.5); MEAN CORPUSCULAR VOLUME 93.9 fl (80.0-96.0); PLATELET COUNT, AUTOMATED 181 10^3/uL (150-450); RED BLOOD COUNT 3.44 10^6/uL (4.30-6.10); WHITE BLOOD COUNT 8.1 10^3/uL (4.0-10.0)
[2023-11-27 10:52] LABS: BLOOD UREA NITROGEN 12 MG/DL (9-23); CALCIUM LEVEL 8.3 MG/DL (8.3-10.6); CARBON DIOXIDE LEVEL 23 MMOL/L (20-31); CHLORIDE LEVEL 107 MMOL/L (98-107); GLOMERULAR FILTRATION RATE > 60.0 (>42); GLUCOSE, FASTING 97 MG/DL (74-106); MAGNESIUM LEVEL 1.8 MG/DL (1.8-2.4); PHOSPHORUS LEVEL 1.7 MG/DL (2.4-5.1); POTASSIUM SERUM 4.4 MMOL/L (3.5-5.1); SODIUM LEVEL 134 MMOL/L (136-145)
[2023-11-27] MEDS: LOMOTIL 2.5MG/0.025MG TABLET PO ONE (12:57)
[2023-11-27 14:00] VITALS: BP 131/73; TEMP 97.5; O2SAT 96
[2023-11-27 21:37] VITALS: BP 125/73; TEMP 97.9; O2SAT 97
[2023-11-27] MEDS: LOMOTIL 2.5MG/0.025MG TABLET PO PRN (21:40)
[2023-11-27] MEDS: methylPREDNISolone 40MG 1ML VIAL IV SCH (21:40)
[2023-11-28 05:17] VITALS: BP 116/65; TEMP 97.9; O2SAT 97
[2023-11-28 06:27] LABS: HEMATOCRIT 33.1 % (42.0-52.0); HEMOGLOBIN 11.2 g/dl (13.5-17.5); MEAN CORPUSCULAR HGB CONC 33.8 g/dl (32.0-36.5); MEAN CORPUSCULAR VOLUME 94.6 fl (80.0-96.0); PLATELET COUNT, AUTOMATED 196 10^3/uL (150-450); WHITE BLOOD COUNT 7.7 10^3/uL (4.0-10.0)
[2023-11-28 06:49] LABS: BLOOD UREA NITROGEN 13 MG/DL (9-23); CALCIUM LEVEL 8.1 MG/DL (8.3-10.6); CARBON DIOXIDE LEVEL 27 MMOL/L (20-31); CHLORIDE LEVEL 103 MMOL/L (98-107); GLOMERULAR FILTRATION RATE > 60.0 (>42); GLUCOSE, FASTING 210 MG/DL (74-106); POTASSIUM SERUM 5.3 MMOL/L (3.5-5.1); SODIUM LEVEL 135 MMOL/L (136-145)
[2023-11-28] MEDS: FUROSEMIDE 20MG/2ML VIAL IV ONE (08:00)
[2023-11-28 08:35] LABS: MAGNESIUM LEVEL 1.8 MG/DL (1.8-2.4); PHOSPHORUS LEVEL 1.7 MG/DL (2.4-5.1)
[2023-11-28] MEDS: CALCIUM GLUCONATE 1,000 MG in D5W MINI-BAG PLUS 100 ML IV ONE (08:40)
[2023-11-28] MEDS: SODIUM CHLORIDE 0.9% INJ 10 ML SYR IV PRN (08:41)
[2023-11-28] MEDS: ALBUTEROL SULFATE 2.5MG/0.5ML INH NEB SOLN NEB ONE (08:55)
[2023-11-28 11:42] LABS: MAGNESIUM LEVEL 1.7 MG/DL (1.8-2.4); PHOSPHORUS LEVEL 1.1 MG/DL (2.4-5.1)
[2023-11-28] MEDS: SODIUM PHOSPHATE INJ 30 MMOL in D5W 500 ML IV ONE (13:30)
[2023-11-28 14:00] VITALS: BP 128/64; TEMP 97.7; O2SAT 97
[2023-11-28 17:14] LABS: MAGNESIUM LEVEL 1.7 MG/DL (1.8-2.4); PHOSPHORUS LEVEL 3.1 MG/DL (2.4-5.1)
[2023-11-28] MEDS: MAG SULF 1GM/100ML (MAG RUN) 1 GM in IV 1 EA IV SCH (18:35)
[2023-11-28 19:38] VITALS: BP 129/64; TEMP 98.1; O2SAT 97
[2023-11-28 23:57] LABS: MAGNESIUM LEVEL 2.4 MG/DL (1.8-2.4)
[2023-11-29 00:33] LABS: POTASSIUM SERUM 4.4 MMOL/L (3.5-5.1)
[2023-11-29] MEDS: SODIUM PHOSPHATE INJ 20 MMOL in D5W 250 ML IV ONE ×2 (02:06→21:07)
[2023-11-29 04:35] LABS: HEMATOCRIT 32.7 % (42.0-52.0); HEMOGLOBIN 11.1 g/dl (13.5-17.5); MEAN CORPUSCULAR HEMOGLOBIN 31.2 pg (27.0-33.0); MEAN CORPUSCULAR HGB CONC 33.9 g/dl (32.0-36.5); MEAN CORPUSCULAR VOLUME 91.9 fl (80.0-96.0); PLATELET COUNT, AUTOMATED 207 10^3/uL (150-450); RED BLOOD COUNT 3.56 10^6/uL (4.30-6.10)
[2023-11-29 04:50] VITALS: BP 126/65; TEMP 98.1; O2SAT 95
[2023-11-29 05:04] LABS: BLOOD UREA NITROGEN 18 MG/DL (9-23); CALCIUM LEVEL 7.7 MG/DL (8.3-10.6); CARBON DIOXIDE LEVEL 27 MMOL/L (20-31); CHLORIDE LEVEL 99 MMOL/L (98-107); CREATININE FOR GFR 0.58 MG/DL (0.70-1.30); GLOMERULAR FILTRATION RATE > 60.0 (>42); GLUCOSE, FASTING 385 MG/DL (74-106); MAGNESIUM LEVEL 2.1 MG/DL (1.8-2.4); PHOSPHORUS LEVEL 3.4 MG/DL (2.4-5.1); POTASSIUM SERUM 4.8 MMOL/L (3.5-5.1); SODIUM LEVEL 130 MMOL/L (136-145)
[2023-11-29 11:02] LABS: PHOSPHORUS LEVEL 2.5 MG/DL (2.4-5.1)
[2023-11-29] MEDS: PIPERACILLIN/TAZOBACTAM SOD 3.375 GM in D5W MINI-BAG PLUS 50 ML IV SCH (11:12)
[2023-11-29 14:00] VITALS: BP 145/77; TEMP 97.9; O2SAT 97
[2023-11-29] MEDS: FLEET ENEMA PR ONE (15:29)
[2023-11-29 17:26] LABS: MAGNESIUM LEVEL 2.1 MG/DL (1.8-2.4); PHOSPHORUS LEVEL 2.3 MG/DL (2.4-5.1)
[2023-11-29 20:30] VITALS: BP 122/75; TEMP 98.1; O2SAT 95
[2023-11-29 23:30] LABS: MAGNESIUM LEVEL 1.9 MG/DL (1.8-2.4); PHOSPHORUS LEVEL 3.5 MG/DL (2.4-5.1)
[2023-11-30] VITALS (12 sets, daily range): BP systolic 113–120; BP diastolic 58–67; TEMP 96.8–98; O2SAT 80–98
[2023-11-30] MEDS: FLEET ENEMA PR ONE (06:07)
[2023-11-30 06:48] LABS: HEMATOCRIT 32.1 % (42.0-52.0); HEMOGLOBIN 10.8 g/dl (13.5-17.5); MEAN CORPUSCULAR HEMOGLOBIN 31.7 pg (27.0-33.0); MEAN CORPUSCULAR HGB CONC 33.6 g/dl (32.0-36.5); MEAN CORPUSCULAR VOLUME 94.1 fl (80.0-96.0); PLATELET COUNT, AUTOMATED 213 10^3/uL (150-450); RED BLOOD COUNT 3.41 10^6/uL (4.30-6.10); WHITE BLOOD COUNT 12.8 10^3/uL (4.0-10.0)
[2023-11-30 07:13] LABS: BLOOD UREA NITROGEN 11 MG/DL (9-23); CALCIUM LEVEL 8.6 MG/DL (8.3-10.6); CARBON DIOXIDE LEVEL 32 MMOL/L (20-31); CHLORIDE LEVEL 101 MMOL/L (98-107); CREATININE FOR GFR 0.74 MG/DL (0.70-1.30); GLOMERULAR FILTRATION RATE > 60.0 (>42); GLUCOSE, FASTING 145 MG/DL (74-106); PHOSPHORUS LEVEL 2.8 MG/DL (2.4-5.1); POTASSIUM SERUM 4.9 MMOL/L (3.5-5.1); SODIUM LEVEL 134 MMOL/L (136-145)
[2023-11-30] MEDS ORDERED: SUGAMMADEX SODIUM 500 MG/5 ML VIAL (BRIDION) As Ordered ONE (10:07)
[2023-11-30] MEDS ORDERED: ROCURONIUM BROMIDE 50MG/5ML VIAL As Ordered ONE (10:07)
[2023-11-30] MEDS ORDERED: ONDANSETRON 4MG 2ML VIAL As Ordered ONE (10:07)
[2023-11-30 10:58] LABS: PHOSPHORUS LEVEL 2.9 MG/DL (2.4-5.1)
[2023-11-30] MEDS: CETACAINE SPRAY 5GM As Ordered ONE (13:00)
[2023-11-30] MEDS ORDERED: PHENYLephrine 500MCG 5ML (100MCG/ML) SYRINGE As Ordered ONE (13:11)
[2023-11-30] MEDS ORDERED: HYDROmorphone HCL 2MG/ML 1ML VIAL As Ordered ONE (13:33)
[2023-11-30] MEDS ORDERED: ESMOLOL INJ 100MG/10ML VIAL As Ordered ONE (14:15)
[2023-11-30] MEDS: LIDOCAINE 1% SDV 30ML VIAL As Ordered ONE (15:50)
[2023-11-30] MEDS: LR 1,000 ML IV SCH (16:05)
[2023-11-30] MEDS ORDERED: HYDROMORPHONE HCL 0.5 MG/ 0.5 ML SYRINGE IV PRN (16:05)
[2023-11-30] MEDS ORDERED: oxyCODONE 5MG TAB PO PRN (16:05)
[2023-11-30] MEDS ORDERED: ONDANSETRON 4MG 2ML VIAL IV PRN (16:05)
[2023-11-30] MEDS ORDERED: fentaNYL 100 MCG/2 ML INJECTION IV PRN (16:05)
[2023-12-01 02:00] VITALS: BP 118/66; TEMP 98.4; O2SAT 94
[2023-12-01 06:00] VITALS: BP 109/64; TEMP 97.8; O2SAT 96
[2023-12-01 07:26] LABS: HEMATOCRIT 29.7 % (42.0-52.0); HEMOGLOBIN 9.7 g/dl (13.5-17.5); MEAN CORPUSCULAR HEMOGLOBIN 31.4 pg (27.0-33.0); MEAN CORPUSCULAR HGB CONC 32.7 g/dl (32.0-36.5); MEAN CORPUSCULAR VOLUME 96.1 fl (80.0-96.0); PLATELET COUNT, AUTOMATED 187 10^3/uL (150-450); RED BLOOD COUNT 3.09 10^6/uL (4.30-6.10); WHITE BLOOD COUNT 8.2 10^3/uL (4.0-10.0)
[2023-12-01 07:55] LABS: BLOOD UREA NITROGEN 10 MG/DL (9-23); CALCIUM LEVEL 8.4 MG/DL (8.3-10.6); CARBON DIOXIDE LEVEL 34 MMOL/L (20-31); CHLORIDE LEVEL 98 MMOL/L (98-107); CREATININE FOR GFR 0.85 MG/DL (0.70-1.30); GLOMERULAR FILTRATION RATE > 60.0 (>42); GLUCOSE, FASTING 117 MG/DL (74-106); POTASSIUM SERUM 4.8 MMOL/L (3.5-5.1); SODIUM LEVEL 135 MMOL/L (136-145)
[2023-12-01 09:01] LABS: MAGNESIUM LEVEL 1.8 MG/DL (1.8-2.4)
[2023-12-01 10:00] VITALS: BP 119/71; TEMP 97.6; O2SAT 96
[2023-12-01 14:00] VITALS: BP 119/70; TEMP 98.1; O2SAT 92
[2023-12-01 18:00] VITALS: BP 119/68; TEMP 98.7; O2SAT 97
[2023-12-01 20:00] VITALS: BP 118/66; TEMP 99.1; O2SAT 96
[2023-12-02] VITALS (7 sets, daily range): BP systolic 92–113; BP diastolic 58–65; TEMP 97.7–98.8; O2SAT 94–97
[2023-12-02 08:48] LABS: HEMATOCRIT 31.5 % (42.0-52.0); HEMOGLOBIN 10.3 g/dl (13.5-17.5); MEAN CORPUSCULAR HEMOGLOBIN 31.4 pg (27.0-33.0); MEAN CORPUSCULAR HGB CONC 32.7 g/dl (32.0-36.5); PLATELET COUNT, AUTOMATED 194 10^3/uL (150-450); RED BLOOD COUNT 3.28 10^6/uL (4.30-6.10); WHITE BLOOD COUNT 8.8 10^3/uL (4.0-10.0)
[2023-12-02 09:13] LABS: BLOOD UREA NITROGEN 10 MG/DL (9-23); CALCIUM LEVEL 8.2 MG/DL (8.3-10.6); CARBON DIOXIDE LEVEL 34 MMOL/L (20-31); CHLORIDE LEVEL 95 MMOL/L (98-107); CREATININE FOR GFR 0.89 MG/DL (0.70-1.30); GLOMERULAR FILTRATION RATE > 60.0 (>42); GLUCOSE, FASTING 116 MG/DL (74-106); MAGNESIUM LEVEL 1.7 MG/DL (1.8-2.4); POTASSIUM SERUM 4.4 MMOL/L (3.5-5.1); SODIUM LEVEL 132 MMOL/L (136-145)
[2023-12-02 17:18] LABS: BLOOD UREA NITROGEN 11 MG/DL (9-23); CALCIUM LEVEL 8.3 MG/DL (8.3-10.6); CARBON DIOXIDE LEVEL 34 MMOL/L (20-31); CHLORIDE LEVEL 96 MMOL/L (98-107); GLOMERULAR FILTRATION RATE > 60.0 (>42); GLUCOSE, FASTING 137 MG/DL (74-106); POTASSIUM SERUM 4.2 MMOL/L (3.5-5.1); SODIUM LEVEL 130 MMOL/L (136-145)
[2023-12-02 22:59] LABS: BLOOD UREA NITROGEN 12 MG/DL (9-23); CARBON DIOXIDE LEVEL 32 MMOL/L (20-31); CHLORIDE LEVEL 95 MMOL/L (98-107); CREATININE FOR GFR 0.79 MG/DL (0.70-1.30); GLOMERULAR FILTRATION RATE > 60.0 (>42); GLUCOSE, FASTING 143 MG/DL (74-106); POTASSIUM SERUM 4.5 MMOL/L (3.5-5.1); SODIUM LEVEL 131 MMOL/L (136-145)
[2023-12-03 04:32] LABS: HEMATOCRIT 31.9 % (42.0-52.0); HEMOGLOBIN 10.5 g/dl (13.5-17.5); MEAN CORPUSCULAR HEMOGLOBIN 31.1 pg (27.0-33.0); MEAN CORPUSCULAR HGB CONC 32.9 g/dl (32.0-36.5); MEAN CORPUSCULAR VOLUME 94.4 fl (80.0-96.0); PLATELET COUNT, AUTOMATED 196 10^3/uL (150-450); RED BLOOD COUNT 3.38 10^6/uL (4.30-6.10); WHITE BLOOD COUNT 10.2 10^3/uL (4.0-10.0)
[2023-12-03 05:06] LABS: BLOOD UREA NITROGEN 12 MG/DL (9-23); CARBON DIOXIDE LEVEL 30 MMOL/L (20-31); CHLORIDE LEVEL 96 MMOL/L (98-107); CREATININE FOR GFR 0.81 MG/DL (0.70-1.30); GLOMERULAR FILTRATION RATE > 60.0 (>42); GLUCOSE, FASTING 163 MG/DL (74-106); MAGNESIUM LEVEL 1.6 MG/DL (1.8-2.4); POTASSIUM SERUM 4.5 MMOL/L (3.5-5.1); SODIUM LEVEL 131 MMOL/L (136-145)
[2023-12-03 06:00] VITALS: BP 103/59; TEMP 98.1; O2SAT 90
[2023-12-03 07:42] LABS: PHOSPHORUS LEVEL 2.1 MG/DL (2.4-5.1)
[2023-12-03] MEDS: MAG SULF 1GM/100ML (MAG RUN) 1 GM in IV 1 EA IV SCH (11:05)
[2023-12-03 14:15] VITALS: BP 121/70; TEMP 97.8; O2SAT 95
[2023-12-03] MEDS: SODIUM PHOSPHATE INJ 30 MMOL in D5W 500 ML IV ONE (14:45)
[2023-12-03 17:00] LABS: BLOOD UREA NITROGEN 11 MG/DL (9-23); CALCIUM LEVEL 7.6 MG/DL (8.3-10.6); CARBON DIOXIDE LEVEL 31 MMOL/L (20-31); CHLORIDE LEVEL 95 MMOL/L (98-107); CREATININE FOR GFR 0.82 MG/DL (0.70-1.30); GLOMERULAR FILTRATION RATE > 60.0 (>42); GLUCOSE, FASTING 142 MG/DL (74-106); POTASSIUM SERUM 4.4 MMOL/L (3.5-5.1); SODIUM LEVEL 130 MMOL/L (136-145)
[2023-12-03 20:26] VITALS: BP 116/65; TEMP 98.2; O2SAT 96
[2023-12-03 22:32] LABS: BLOOD UREA NITROGEN 10 MG/DL (9-23); CALCIUM LEVEL 7.6 MG/DL (8.3-10.6); CARBON DIOXIDE LEVEL 30 MMOL/L (20-31); CHLORIDE LEVEL 97 MMOL/L (98-107); CREATININE FOR GFR 0.73 MG/DL (0.70-1.30); GLOMERULAR FILTRATION RATE > 60.0 (>42); GLUCOSE, FASTING 139 MG/DL (74-106); POTASSIUM SERUM 4.3 MMOL/L (3.5-5.1); SODIUM LEVEL 129 MMOL/L (136-145)
[2023-12-03] MEDS: DEXTROMETHORPHAN 60MG/10ML SUSP 90ML BTL(DELSYM) PO PRN (23:39)
[2023-12-04 03:44] LABS: HEMATOCRIT 31.8 % (42.0-52.0); HEMOGLOBIN 10.6 g/dl (13.5-17.5); MEAN CORPUSCULAR HEMOGLOBIN 31.2 pg (27.0-33.0); MEAN CORPUSCULAR HGB CONC 33.3 g/dl (32.0-36.5); MEAN CORPUSCULAR VOLUME 93.5 fl (80.0-96.0); PLATELET COUNT, AUTOMATED 200 10^3/uL (150-450); WHITE BLOOD COUNT 10.7 10^3/uL (4.0-10.0)
[2023-12-04 04:13] LABS: BLOOD UREA NITROGEN 12 MG/DL (9-23); CALCIUM LEVEL 7.6 MG/DL (8.3-10.6); CARBON DIOXIDE LEVEL 26 MMOL/L (20-31); CHLORIDE LEVEL 98 MMOL/L (98-107); CREATININE FOR GFR 0.67 MG/DL (0.70-1.30); GLOMERULAR FILTRATION RATE > 60.0 (>42); GLUCOSE, FASTING 156 MG/DL (74-106); POTASSIUM SERUM 4.7 MMOL/L (3.5-5.1); SODIUM LEVEL 129 MMOL/L (136-145)
[2023-12-04 07:00] VITALS: BP 115/64; TEMP 98.1; O2SAT 95
[2023-12-04] MEDS: ENOXAPARIN 40MG/0.4ML SYRINGE (J1650 PER 10MG) SC SCH (09:32)
[2023-12-04] MEDS: METAMUCIL (PSYLLIUM) PACKET PO SCH (09:58)
[2023-12-04] MEDS: LOMOTIL 2.5MG/0.025MG TABLET PO SCH (09:58)
[2023-12-04 10:27] LABS: BLOOD UREA NITROGEN 11 MG/DL (9-23); CALCIUM LEVEL 8.2 MG/DL (8.3-10.6); CARBON DIOXIDE LEVEL 29 MMOL/L (20-31); CHLORIDE LEVEL 98 MMOL/L (98-107); CREATININE FOR GFR 0.75 MG/DL (0.70-1.30); GLOMERULAR FILTRATION RATE > 60.0 (>42); GLUCOSE, FASTING 143 MG/DL (74-106); PHOSPHORUS LEVEL 2.2 MG/DL (2.4-5.1); POTASSIUM SERUM 4.8 MMOL/L (3.5-5.1); SODIUM LEVEL 129 MMOL/L (136-145)
[2023-12-04 13:44] LABS: BLOOD UREA NITROGEN 10 MG/DL (9-23); CALCIUM LEVEL 8.2 MG/DL (8.3-10.6); CARBON DIOXIDE LEVEL 28 MMOL/L (20-31); CHLORIDE LEVEL 97 MMOL/L (98-107); CREATININE FOR GFR 0.72 MG/DL (0.70-1.30); GLOMERULAR FILTRATION RATE > 60.0 (>42); GLUCOSE, FASTING 92 MG/DL (74-106); PHOSPHORUS LEVEL 2.3 MG/DL (2.4-5.1); POTASSIUM SERUM 5.1 MMOL/L (3.5-5.1); SODIUM LEVEL 129 MMOL/L (136-145)
[2023-12-04 14:00] VITALS: BP 113/64; TEMP 98.1; O2SAT 94
[2023-12-04] MEDS: SODIUM PHOSPHATE INJ 30 MMOL in D5W 500 ML IV ONE (16:14)
[2023-12-04] MEDS ORDERED: SODIUM PHOSPHATE INJ 30 MMOL in D5W 500 ML IV ONE (17:05)
[2023-12-04 20:03] VITALS: BP 113/65; TEMP 98.6; O2SAT 94
[2023-12-05 01:25] LABS: BLOOD UREA NITROGEN 12 MG/DL (9-23); CALCIUM LEVEL 8.2 MG/DL (8.3-10.6); CARBON DIOXIDE LEVEL 29 MMOL/L (20-31); CHLORIDE LEVEL 95 MMOL/L (98-107); CREATININE FOR GFR 0.77 MG/DL (0.70-1.30); GLOMERULAR FILTRATION RATE > 60.0 (>42); GLUCOSE, FASTING 92 MG/DL (74-106); PHOSPHORUS LEVEL 3.2 MG/DL (2.4-5.1); POTASSIUM SERUM 4.7 MMOL/L (3.5-5.1); SODIUM LEVEL 127 MMOL/L (136-145)
[2023-12-05 02:19] LABS: ALBUMIN 1.7 G/DL (3.2-5.2)
[2023-12-05 04:15] VITALS: BP 112/66; TEMP 98.6; O2SAT 96
[2023-12-05] MEDS: NS 1,000 ML IV SCH (10:42)
[2023-12-05 14:00] VITALS: BP 90/55; TEMP 97.9; O2SAT 95
[2023-12-05 14:44] LABS: ALBUMIN 1.8 G/DL (3.2-5.2); BLOOD UREA NITROGEN 15 MG/DL (9-23); CALCIUM LEVEL 7.7 MG/DL (8.3-10.6); CARBON DIOXIDE LEVEL 28 MMOL/L (20-31); CHLORIDE LEVEL 94 MMOL/L (98-107); CREATININE FOR GFR 0.78 MG/DL (0.70-1.30); GLOMERULAR FILTRATION RATE > 60.0 (>42); GLUCOSE, FASTING 133 MG/DL (74-106); MAGNESIUM LEVEL 1.8 MG/DL (1.8-2.4); PHOSPHORUS LEVEL 2.4 MG/DL (2.4-5.1); POTASSIUM SERUM 4.6 MMOL/L (3.5-5.1); SODIUM LEVEL 128 MMOL/L (136-145)
[2023-12-05 16:45] VITALS: BP 100/58
[2023-12-05 19:49] VITALS: BP 99/58; TEMP 98.6; O2SAT 95
[2023-12-06 05:16] VITALS: BP 101/59; TEMP 98.2; O2SAT 94
[2023-12-06] MEDS: LOMOTIL 2.5MG/0.025MG TABLET PO SCH (09:32)
[2023-12-06 14:15] VITALS: BP 103/57; TEMP 98.1; O2SAT 94
[2023-12-06 15:01] LABS: BLOOD UREA NITROGEN 11 MG/DL (9-23); CALCIUM LEVEL 7.5 MG/DL (8.3-10.6); CARBON DIOXIDE LEVEL 29 MMOL/L (20-31); CHLORIDE LEVEL 99 MMOL/L (98-107); CREATININE FOR GFR 0.73 MG/DL (0.70-1.30); GLOMERULAR FILTRATION RATE > 60.0 (>42); GLUCOSE, FASTING 126 MG/DL (74-106); POTASSIUM SERUM 4.3 MMOL/L (3.5-5.1); SODIUM LEVEL 132 MMOL/L (136-145)
[2023-12-06 20:00] VITALS: BP 134/74; TEMP 98.4; O2SAT 95
[2023-12-07 06:00] VITALS: BP 116/54; TEMP 98.1; O2SAT 95
[2023-12-07 06:52] LABS: HEMOGLOBIN 8.1 g/dl (13.5-17.5); MEAN CORPUSCULAR HEMOGLOBIN 31.2 pg (27.0-33.0); MEAN CORPUSCULAR HGB CONC 32.4 g/dl (32.0-36.5); MEAN CORPUSCULAR VOLUME 96.2 fl (80.0-96.0); PLATELET COUNT, AUTOMATED 184 10^3/uL (150-450); WHITE BLOOD COUNT 6.3 10^3/uL (4.0-10.0)
[2023-12-07 07:07] LABS: BLOOD UREA NITROGEN 8 MG/DL (9-23); CALCIUM LEVEL 7.6 MG/DL (8.3-10.6); CARBON DIOXIDE LEVEL 28 MMOL/L (20-31); CHLORIDE LEVEL 101 MMOL/L (98-107); CREATININE FOR GFR 0.65 MG/DL (0.70-1.30); GLOMERULAR FILTRATION RATE > 60.0 (>42); GLUCOSE, FASTING 115 MG/DL (74-106); MAGNESIUM LEVEL 1.5 MG/DL (1.8-2.4); POTASSIUM SERUM 4.2 MMOL/L (3.5-5.1); SODIUM LEVEL 134 MMOL/L (136-145)
[2023-12-07] MEDS: MAG SULF 1GM/100ML (MAG RUN) 1 GM in IV 1 EA IV SCH (10:22)
[2023-12-07 10:51] VITALS: BP 115/53; TEMP 97.9; O2SAT 94
[2023-12-07 14:00] VITALS: BP 116/53; TEMP 97.9; O2SAT 98
[2023-12-07 19:19] LABS: ALBUMIN 1.7 G/DL (3.2-5.2); BLOOD UREA NITROGEN 7 MG/DL (9-23); CALCIUM LEVEL 7.7 MG/DL (8.3-10.6); CARBON DIOXIDE LEVEL 30 MMOL/L (20-31); CHLORIDE LEVEL 101 MMOL/L (98-107); CREATININE FOR GFR 0.63 MG/DL (0.70-1.30); GLOMERULAR FILTRATION RATE > 60.0 (>42); GLUCOSE, FASTING 121 MG/DL (74-106); PHOSPHORUS LEVEL 2.1 MG/DL (2.4-5.1); POTASSIUM SERUM 3.9 MMOL/L (3.5-5.1); SODIUM LEVEL 135 MMOL/L (136-145)
[2023-12-07 21:42] VITALS: BP 124/58; TEMP 99.3; O2SAT 92
[2023-12-08 05:23] VITALS: BP 109/56; O2SAT 95
[2023-12-08 06:54] VITALS: TEMP 99.1
[2023-12-08 07:31] LABS: HEMATOCRIT 27.2 % (42.0-52.0); HEMOGLOBIN 8.9 g/dl (13.5-17.5); MEAN CORPUSCULAR HGB CONC 32.7 g/dl (32.0-36.5); MEAN CORPUSCULAR VOLUME 94.8 fl (80.0-96.0); PLATELET COUNT, AUTOMATED 198 10^3/uL (150-450); RED BLOOD COUNT 2.87 10^6/uL (4.30-6.10); WHITE BLOOD COUNT 7.2 10^3/uL (4.0-10.0)
[2023-12-08 07:56] LABS: ALBUMIN 1.7 G/DL (3.2-5.2); BLOOD UREA NITROGEN 8 MG/DL (9-23); CALCIUM LEVEL 7.9 MG/DL (8.3-10.6); CARBON DIOXIDE LEVEL 30 MMOL/L (20-31); CHLORIDE LEVEL 101 MMOL/L (98-107); GLOMERULAR FILTRATION RATE > 60.0 (>42); GLUCOSE, FASTING 110 MG/DL (74-106); MAGNESIUM LEVEL 1.7 MG/DL (1.8-2.4); PHOSPHORUS LEVEL 2.4 MG/DL (2.4-5.1); SODIUM LEVEL 135 MMOL/L (136-145)
[2023-12-08] MEDS: MAG SULF 1GM/100ML (MAG RUN) 1 GM in IV 1 EA IV SCH (10:19)
[2023-12-08] MEDS: SODIUM PHOSPHATE INJ 30 MMOL in D5W 500 ML IV ONE (11:34)
[2023-12-08 14:35] VITALS: BP 109/54; TEMP 98.1; O2SAT 96
[2023-12-08 21:05] VITALS: BP 134/66; TEMP 98.6; O2SAT 98
[2023-12-08] MEDS: PINK BISMUTH SUSP 524MG/30ML ORAL SYRINGE PO SCH (21:38)
[2023-12-09 06:01] VITALS: BP 113/58; TEMP 98.6; O2SAT 96
[2023-12-09 07:31] LABS: HEMATOCRIT 26.1 % (42.0-52.0); HEMOGLOBIN 8.4 g/dl (13.5-17.5); MEAN CORPUSCULAR HEMOGLOBIN 31.2 pg (27.0-33.0); MEAN CORPUSCULAR HGB CONC 32.2 g/dl (32.0-36.5); PLATELET COUNT, AUTOMATED 196 10^3/uL (150-450); RED BLOOD COUNT 2.69 10^6/uL (4.30-6.10); WHITE BLOOD COUNT 6.6 10^3/uL (4.0-10.0)
[2023-12-09 07:47] LABS: ALBUMIN 1.5 G/DL (3.2-5.2); BLOOD UREA NITROGEN 7 MG/DL (9-23); CALCIUM LEVEL 7.8 MG/DL (8.3-10.6); CARBON DIOXIDE LEVEL 31 MMOL/L (20-31); CHLORIDE LEVEL 102 MMOL/L (98-107); CREATININE FOR GFR 0.63 MG/DL (0.70-1.30); GLOMERULAR FILTRATION RATE > 60.0 (>42); GLUCOSE, FASTING 121 MG/DL (74-106); MAGNESIUM LEVEL 1.7 MG/DL (1.8-2.4); PHOSPHORUS LEVEL 2.3 MG/DL (2.4-5.1); POTASSIUM SERUM 4.5 MMOL/L (3.5-5.1); SODIUM LEVEL 135 MMOL/L (136-145)
[2023-12-09] MEDS ORDERED: LOPERAMIDE 2 MG CAPLET PO SCH (08:00)
[2023-12-09] MEDS ORDERED: LOMOTIL 2.5MG/0.025MG TABLET PO SCH (09:00)
[2023-12-09] MEDS: MAGNESIUM OXIDE 400MG TAB (MAG-OX) PO SCH (10:18)
[2023-12-09] MEDS: LOMOTIL 2.5MG/0.025MG TABLET PO SCH (10:19)
[2023-12-09] MEDS: LOPERAMIDE 2 MG CAPLET PO SCH (10:19)
[2023-12-09] MEDS: NEUTRA-PHOS 1.5 GM PACKET PO SCH (12:07)
[2023-12-09 14:00] VITALS: BP 111/57; TEMP 98.1; O2SAT 96
[2023-12-09 21:00] VITALS: BP 123/60; TEMP 98.8; O2SAT 96
[2023-12-10 06:45] VITALS: BP 125/64; TEMP 98.1; O2SAT 94
[2023-12-10 07:10] LABS: HEMATOCRIT 25.7 % (42.0-52.0); HEMOGLOBIN 8.4 g/dl (13.5-17.5); MEAN CORPUSCULAR HEMOGLOBIN 31.5 pg (27.0-33.0); MEAN CORPUSCULAR HGB CONC 32.7 g/dl (32.0-36.5); MEAN CORPUSCULAR VOLUME 96.3 fl (80.0-96.0); PLATELET COUNT, AUTOMATED 210 10^3/uL (150-450); RED BLOOD COUNT 2.67 10^6/uL (4.30-6.10); WHITE BLOOD COUNT 6.2 10^3/uL (4.0-10.0)
[2023-12-10 07:48] LABS: ALBUMIN 1.7 G/DL (3.2-5.2); BLOOD UREA NITROGEN 7 MG/DL (9-23); CALCIUM LEVEL 7.7 MG/DL (8.3-10.6); CARBON DIOXIDE LEVEL 30 MMOL/L (20-31); CHLORIDE LEVEL 100 MMOL/L (98-107); CREATININE FOR GFR 0.58 MG/DL (0.70-1.30); GLOMERULAR FILTRATION RATE > 60.0 (>42); GLUCOSE, FASTING 103 MG/DL (74-106); MAGNESIUM LEVEL 1.6 MG/DL (1.8-2.4); PHOSPHORUS LEVEL 2.6 MG/DL (2.4-5.1); SODIUM LEVEL 133 MMOL/L (136-145)
[2023-12-10] MEDS: LOPERAMIDE 2 MG CAPLET PO SCH (10:00)
[2023-12-10 14:00] VITALS: BP 123/65; TEMP 98.4; O2SAT 94
[2023-12-10 19:50] VITALS: BP 120/60; TEMP 98.2; O2SAT 94
[2023-12-11] VITALS (8 sets, daily range): BP systolic 102–145; BP diastolic 51–69; TEMP 97.7–103; O2SAT 90–98
[2023-12-11 06:31] LABS: HEMATOCRIT 25.9 % (42.0-52.0); HEMOGLOBIN 8.4 g/dl (13.5-17.5); MEAN CORPUSCULAR HGB CONC 32.4 g/dl (32.0-36.5); MEAN CORPUSCULAR VOLUME 95.6 fl (80.0-96.0); PLATELET COUNT, AUTOMATED 227 10^3/uL (150-450); RED BLOOD COUNT 2.71 10^6/uL (4.30-6.10)
[2023-12-11 06:59] LABS: ALBUMIN 1.6 G/DL (3.2-5.2); BLOOD UREA NITROGEN 13 MG/DL (9-23); CALCIUM LEVEL 7.9 MG/DL (8.3-10.6); CARBON DIOXIDE LEVEL 30 MMOL/L (20-31); CHLORIDE LEVEL 100 MMOL/L (98-107); CREATININE FOR GFR 0.62 MG/DL (0.70-1.30); GLOMERULAR FILTRATION RATE > 60.0 (>42); GLUCOSE, FASTING 106 MG/DL (74-106); MAGNESIUM LEVEL 1.5 MG/DL (1.8-2.4); PHOSPHORUS LEVEL 2.6 MG/DL (2.4-5.1); POTASSIUM SERUM 4.7 MMOL/L (3.5-5.1); SODIUM LEVEL 134 MMOL/L (136-145)
[2023-12-11] MEDS: MAGNESIUM GLUCONATE 500 MG TAB PO SCH (10:12)
[2023-12-11] MEDS ORDERED: fentaNYL 100 MCG/2 ML INJECTION IV PRN (18:00)
[2023-12-11] MEDS ORDERED: ONDANSETRON 4MG 2ML VIAL IV PRN (18:00)
[2023-12-11] MEDS: HYDROMORPHONE HCL 0.5 MG/ 0.5 ML SYRINGE IV PRN (18:06)
[2023-12-11] MEDS: oxyCODONE 5MG TAB PO PRN (18:19)
[2023-12-12] VITALS (8 sets, daily range): BP systolic 80–115; BP diastolic 44–57; TEMP 97.4–99.8; O2SAT 93–98
[2023-12-12] MEDS: ACETAMINOPHEN *IV* 1,000 MG in IV 1 EA IV ONE (00:02)
[2023-12-12 00:29] LABS: BASO % 0.2 % (0.0-1.0); EOS # 0.1 10^3/uL (0.0-0.5); EOS % 1.5 % (0.0-3.0); HEMATOCRIT 25.9 % (42.0-52.0); HEMOGLOBIN 8.4 g/dl (13.5-17.5); LYMPH # 0.2 10^3/uL (1.5-5.0); LYMPH % 2.5 % (24.0-44.0); MEAN CORPUSCULAR HEMOGLOBIN 30.7 pg (27.0-33.0); MEAN CORPUSCULAR HGB CONC 32.4 g/dl (32.0-36.5); MEAN CORPUSCULAR VOLUME 94.5 fl (80.0-96.0); MONO # 0.4 10^3/uL (0.0-0.8); MONO % 6.2 % (2.0-8.0); NEUTROPHILS # 5.4 10^3/uL (1.5-8.5); NEUTROPHILS % 89.1 % (36.0-66.0); PLATELET COUNT, AUTOMATED 239 10^3/uL (150-450); RED BLOOD COUNT 2.74 10^6/uL (4.30-6.10); WHITE BLOOD COUNT 6.1 10^3/uL (4.0-10.0)
[2023-12-12] MEDS ORDERED: ACETAMINOPHEN TAB 650MG DOSE (2X325MG) PO PRN (00:30)
[2023-12-12 00:53] LABS: ERYTHROCYTE SEDIMENTATION RATE 91 mm/hr (0-20)
[2023-12-12 01:01] LABS: ALBUMIN 1.5 G/DL (3.2-5.2); ALKALINE PHOSPHATASE 140 U/L (46-116); ALT/SGPT 19 U/L (7.0-40); AST/SGOT 19 U/L (<34); BILIRUBIN,TOTAL 0.6 MG/DL (0.3-1.2); BLOOD UREA NITROGEN 11 MG/DL (9-23); CALCIUM LEVEL 7.6 MG/DL (8.3-10.6); CARBON DIOXIDE LEVEL 28 MMOL/L (20-31); CHLORIDE LEVEL 101 MMOL/L (98-107); CREATININE FOR GFR 0.67 MG/DL (0.70-1.30); GLOMERULAR FILTRATION RATE > 60.0 (>42); GLUCOSE, FASTING 70 MG/DL (74-106); MAGNESIUM LEVEL 1.4 MG/DL (1.8-2.4); POTASSIUM SERUM 4.6 MMOL/L (3.5-5.1); SODIUM LEVEL 133 MMOL/L (136-145); TOTAL PROTEIN 4.6 G/DL (5.7-8.2)
[2023-12-12 01:08] LABS: PROCALCITONIN 0.41 ng/ml
[2023-12-12] MEDS: NS 1,000 ML IV ONE (01:11)
[2023-12-12] MEDS: MAG SULF 1GM/100ML (MAG RUN) 1 GM in IV 1 EA IV SCH (02:22)
[2023-12-12] MEDS: D5W/0.9% SODIUM CHLORIDE 1,000 ML IV SCH (02:22)
[2023-12-12] MEDS: D5W/0.9% SODIUM CHLORIDE 1,000 ML IV ONE (03:07)
[2023-12-12 06:42] LABS: HEMATOCRIT 24.4 % (42.0-52.0); HEMOGLOBIN 7.7 g/dl (13.5-17.5); MEAN CORPUSCULAR HEMOGLOBIN 30.8 pg (27.0-33.0); MEAN CORPUSCULAR HGB CONC 31.6 g/dl (32.0-36.5); MEAN CORPUSCULAR VOLUME 97.6 fl (80.0-96.0); PLATELET COUNT, AUTOMATED 216 10^3/uL (150-450); WHITE BLOOD COUNT 6.3 10^3/uL (4.0-10.0)
[2023-12-12 07:03] LABS: ALBUMIN 1.5 G/DL (3.2-5.2); BLOOD UREA NITROGEN 11 MG/DL (9-23); CARBON DIOXIDE LEVEL 25 MMOL/L (20-31); CHLORIDE LEVEL 104 MMOL/L (98-107); CREATININE FOR GFR 0.67 MG/DL (0.70-1.30); GLOMERULAR FILTRATION RATE > 60.0 (>42); GLUCOSE, FASTING 256 MG/DL (74-106); MAGNESIUM LEVEL 2.3 MG/DL (1.8-2.4); PHOSPHORUS LEVEL 3.2 MG/DL (2.4-5.1); POTASSIUM SERUM 3.6 MMOL/L (3.5-5.1); SODIUM LEVEL 134 MMOL/L (136-145)
[2023-12-13] VITALS (7 sets, daily range): BP systolic 112–120; BP diastolic 49–56; TEMP 97.9–99.4; O2SAT 92–96
[2023-12-13 06:31] LABS: HEMATOCRIT 22.5 % (42.0-52.0); HEMOGLOBIN 7.4 g/dl (13.5-17.5); MEAN CORPUSCULAR HEMOGLOBIN 31.4 pg (27.0-33.0); MEAN CORPUSCULAR HGB CONC 32.9 g/dl (32.0-36.5); MEAN CORPUSCULAR VOLUME 95.3 fl (80.0-96.0); PLATELET COUNT, AUTOMATED 223 10^3/uL (150-450); RED BLOOD COUNT 2.36 10^6/uL (4.30-6.10)
[2023-12-13 07:08] LABS: PROCALCITONIN 0.42 ng/ml
[2023-12-13 07:10] LABS: ALBUMIN 1.6 G/DL (3.2-5.2); BLOOD UREA NITROGEN 16 MG/DL (9-23); CARBON DIOXIDE LEVEL 29 MMOL/L (20-31); CHLORIDE LEVEL 105 MMOL/L (98-107); CREATININE FOR GFR 0.58 MG/DL (0.70-1.30); GLOMERULAR FILTRATION RATE > 60.0 (>42); GLUCOSE, FASTING 123 MG/DL (74-106); MAGNESIUM LEVEL 1.7 MG/DL (1.8-2.4); PHOSPHORUS LEVEL 1.7 MG/DL (2.4-5.1); POTASSIUM SERUM 3.2 MMOL/L (3.5-5.1); SODIUM LEVEL 136 MMOL/L (136-145)
[2023-12-13] MEDS: POTASSIUM PHOSPHATE INJ 20 MMOL in D5W 250 ML IV ONE (09:30)
[2023-12-13] MEDS: MAG SULF 1GM/100ML (MAG RUN) 1 GM in IV 1 EA IV ONE (09:30)
[2023-12-13] MEDS: OCTREOTIDE ACETATE 100MCG/ML VIAL **SC ADMINISTRATION ONLY SC SCH (14:12)
[2023-12-13] MEDS: METAMUCIL (PSYLLIUM) PACKET PO SCH (14:13)
[2023-12-13] MEDS: PINK BISMUTH SUSP 524MG/30ML ORAL SYRINGE PO SCH (17:59)
[2023-12-14 06:00] VITALS: BP 123/55; TEMP 98.2; O2SAT 91
[2023-12-14 08:21] LABS: ALBUMIN 1.5 G/DL (3.2-5.2); BLOOD UREA NITROGEN 16 MG/DL (9-23); CALCIUM LEVEL 7.9 MG/DL (8.3-10.6); CARBON DIOXIDE LEVEL 29 MMOL/L (20-31); CHLORIDE LEVEL 103 MMOL/L (98-107); CREATININE FOR GFR 0.57 MG/DL (0.70-1.30); GLOMERULAR FILTRATION RATE > 60.0 (>42); GLUCOSE, FASTING 153 MG/DL (74-106); PHOSPHORUS LEVEL 2.3 MG/DL (2.4-5.1); POTASSIUM SERUM 3.7 MMOL/L (3.5-5.1); SODIUM LEVEL 137 MMOL/L (136-145)
[2023-12-14 10:57] LABS: HEMATOCRIT 23.3 % (42.0-52.0); HEMOGLOBIN 7.5 g/dl (13.5-17.5); MEAN CORPUSCULAR HGB CONC 32.2 g/dl (32.0-36.5); MEAN CORPUSCULAR VOLUME 96.3 fl (80.0-96.0); PLATELET COUNT, AUTOMATED 269 10^3/uL (150-450); RED BLOOD COUNT 2.42 10^6/uL (4.30-6.10); WHITE BLOOD COUNT 4.3 10^3/uL (4.0-10.0)
[2023-12-14] MEDS: LOPERAMIDE 2 MG CAPLET PO SCH (11:29)
[2023-12-14 13:35] LABS: CLOSTRIDIUM DIFFICILE PCR NEGATIVE (NEGATIVE)
[2023-12-14 14:00] VITALS: BP 119/57; TEMP 97.1; O2SAT 92
[2023-12-14] MEDS: POTASSIUM PHOSPHATE INJ 20 MMOL in D5W 250 ML IV ONE (14:04)
[2023-12-14 20:50] VITALS: BP 117/54; TEMP 98.6; O2SAT 96
[2023-12-15 05:36] VITALS: BP 124/60; TEMP 98.6; O2SAT 94
[2023-12-15 07:38] LABS: ALBUMIN 1.7 G/DL (3.2-5.2); BLOOD UREA NITROGEN 14 MG/DL (9-23); CALCIUM LEVEL 8.4 MG/DL (8.3-10.6); CARBON DIOXIDE LEVEL 27 MMOL/L (20-31); CHLORIDE LEVEL 101 MMOL/L (98-107); CREATININE FOR GFR 0.54 MG/DL (0.70-1.30); GLOMERULAR FILTRATION RATE > 60.0 (>42); GLUCOSE, FASTING 118 MG/DL (74-106); PHOSPHORUS LEVEL 2.3 MG/DL (2.4-5.1); POTASSIUM SERUM 3.3 MMOL/L (3.5-5.1); SODIUM LEVEL 132 MMOL/L (136-145)
[2023-12-15] MEDS ORDERED: GASTROGRAFIN SOLUTION 30ML As Ordered ONE (11:36)
[2023-12-15] MEDS: LR 1,000 ML IV ONE (13:31)
[2023-12-15 14:26] VITALS: BP 123/56; TEMP 99.1; O2SAT 93
[2023-12-15] MEDS: POTASSIUM PHOSPHATE INJ 30 MMOL in D5W 500 ML IV ONE (14:30)
[2023-12-15] MEDS: OCTREOTIDE ACETATE 100MCG/ML VIAL **SC ADMINISTRATION ONLY SC SCH (14:46)
[2023-12-15] MEDS: METAMUCIL (PSYLLIUM) PACKET PO SCH (14:55)
[2023-12-15] MEDS: LOPERAMIDE 2 MG CAPLET PO SCH (18:06)
[2023-12-15 20:00] VITALS: BP 117/61; TEMP 98.1; O2SAT 98
[2023-12-15] MEDS: D5W/LR 1,000 ML IV SCH (20:27)
[2023-12-16 04:50] VITALS: BP 118/59; TEMP 98.8; O2SAT 91
[2023-12-16 06:38] LABS: ALBUMIN 1.7 G/DL (3.2-5.2); BLOOD UREA NITROGEN 11 MG/DL (9-23); CALCIUM LEVEL 8.3 MG/DL (8.3-10.6); CARBON DIOXIDE LEVEL 30 MMOL/L (20-31); CHLORIDE LEVEL 97 MMOL/L (98-107); CREATININE FOR GFR 0.67 MG/DL (0.70-1.30); GLOMERULAR FILTRATION RATE > 60.0 (>42); GLUCOSE, FASTING 163 MG/DL (74-106); PHOSPHORUS LEVEL 2.7 MG/DL (2.4-5.1); POTASSIUM SERUM 3.6 MMOL/L (3.5-5.1); SODIUM LEVEL 131 MMOL/L (136-145)
[2023-12-16] MEDS: CHOLESTYRAMINE 4GM PWD PKT GT SCH (12:46)
[2023-12-16 13:53] VITALS: BP 116/61; TEMP 100.8; O2SAT 92
[2023-12-16 21:20] VITALS: BP 114/60; TEMP 100.9; O2SAT 92
[2023-12-17 04:50] VITALS: BP 101/57; TEMP 100; O2SAT 90
[2023-12-17 06:14] LABS: HEMATOCRIT 26.5 % (42.0-52.0); HEMOGLOBIN 8.5 g/dl (13.5-17.5); MEAN CORPUSCULAR HEMOGLOBIN 30.2 pg (27.0-33.0); MEAN CORPUSCULAR HGB CONC 32.1 g/dl (32.0-36.5); MEAN CORPUSCULAR VOLUME 94.3 fl (80.0-96.0); PLATELET COUNT, AUTOMATED 269 10^3/uL (150-450); RED BLOOD COUNT 2.81 10^6/uL (4.30-6.10)
[2023-12-17 06:51] LABS: ALBUMIN 1.8 G/DL (3.2-5.2); BLOOD UREA NITROGEN 12 MG/DL (9-23); CALCIUM LEVEL 8.5 MG/DL (8.3-10.6); CARBON DIOXIDE LEVEL 29 MMOL/L (20-31); CHLORIDE LEVEL 97 MMOL/L (98-107); CREATININE FOR GFR 0.86 MG/DL (0.70-1.30); GLOMERULAR FILTRATION RATE > 60.0 (>42); GLUCOSE, FASTING 133 MG/DL (74-106); PHOSPHORUS LEVEL 2.6 MG/DL (2.4-5.1); POTASSIUM SERUM 3.6 MMOL/L (3.5-5.1); SODIUM LEVEL 132 MMOL/L (136-145)
[2023-12-17 07:22] LABS: LYMPHOCYTES 4 % (16-44); METAMYELOCYTES 4 % (0-0); MONOCYTES 10 % (0-5); MYELOCYTES 1 % (0-0); NEUTROPHILS 58 % (28-66)
[2023-12-17 07:23] LABS: PLATELET CLUMPS SMALL AMT; PLATELET ESTIMATE NORMAL (NORMAL); POLYCHROMASIA 1+
[2023-12-17 07:26] LABS: PROCALCITONIN 0.26 ng/ml
[2023-12-17 09:14] VITALS: BP 116/78; TEMP 100.1; O2SAT 98
[2023-12-17 09:44] VITALS: BP 139/62; TEMP 99.6; O2SAT 89
[2023-12-17] MEDS ORDERED: SIMETHICONE 40MG/0.6ML DROPS 30ML PEG PRN (09:55)
[2023-12-17] MEDS: LR 1,000 ML IV SCH (10:22)
[2023-12-17] MEDS: PIPERACILLIN/TAZOBACTAM SOD 3.375 GM in D5W MINI-BAG PLUS 50 ML IV SCH (10:22)
[2023-12-17] MEDS ORDERED: METOPROLOL TART 50 MG TAB PEG SCH (10:25)
[2023-12-17] MEDS: LACTOBACILLUS ACIDOPHILUS CAP (BACID) PEG SCH (11:37)
[2023-12-17] MEDS: CYANOCOBALAMIN 500 MCG TAB PEG SCH (11:37)
[2023-12-17] MEDS: CHOLESTYRAMINE 4GM PWD PKT GT SCH (11:37)
[2023-12-17 11:40] LABS: CHOLESTEROL LEVEL 151 MG/DL (<200); CHOLESTEROL RISK RATIO 7.19 (<5); TRIGLYCERIDES LEVEL 145 MG/DL (<150)
[2023-12-17] MEDS: LOPERAMIDE 2 MG CAPLET PEG SCH (12:02)
[2023-12-17] MEDS: LOMOTIL 2.5MG/0.025MG TABLET PEG SCH (12:03)
[2023-12-17 12:28] VITALS: BP 96/53; TEMP 98.7; O2SAT 94
[2023-12-17] MEDS: METAMUCIL (PSYLLIUM) PACKET PEG SCH (17:41)
[2023-12-17 19:08] VITALS: BP 110/54; TEMP 99.9; O2SAT 97
[2023-12-17] MEDS: METOPROLOL TART 50 MG TAB PEG SCH (21:00)
[2023-12-17] MEDS: MAGNESIUM GLUCONATE 500 MG TAB PEG SCH (21:31)
[2023-12-17] MEDS: DEXTROMETHORPHAN 60MG/10ML SUSP 90ML BTL(DELSYM) PEG PRN (21:31)
[2023-12-18] VITALS (8 sets, daily range): BP systolic 75–115; BP diastolic 42–59; TEMP 98–100; O2SAT 90–98
[2023-12-18] MEDS: LEVOTHYROXINE 50MCG TABLET (0.05MG) PEG SCH (06:50)
[2023-12-18 09:29] LABS: BASO % 0.2 % (0.0-1.0); EOS # 0.1 10^3/uL (0.0-0.5); EOS % 0.9 % (0.0-3.0); HEMATOCRIT 22.5 % (42.0-52.0); HEMOGLOBIN 7.3 g/dl (13.5-17.5); LYMPH # 0.4 10^3/uL (1.5-5.0); LYMPH % 3.6 % (24.0-44.0); MEAN CORPUSCULAR HEMOGLOBIN 30.4 pg (27.0-33.0); MEAN CORPUSCULAR HGB CONC 32.4 g/dl (32.0-36.5); MEAN CORPUSCULAR VOLUME 93.8 fl (80.0-96.0); MONO % 8.9 % (2.0-8.0); NEUTROPHILS # 9.8 10^3/uL (1.5-8.5); NEUTROPHILS % 85.4 % (36.0-66.0); PLATELET COUNT, AUTOMATED 246 10^3/uL (150-450); WHITE BLOOD COUNT 11.4 10^3/uL (4.0-10.0)
[2023-12-18 09:55] LABS: ALBUMIN 1.5 G/DL (3.2-5.2); BLOOD UREA NITROGEN 17 MG/DL (9-23); CALCIUM LEVEL 7.8 MG/DL (8.3-10.6); CARBON DIOXIDE LEVEL 29 MMOL/L (20-31); CHLORIDE LEVEL 97 MMOL/L (98-107); CREATININE FOR GFR 0.99 MG/DL (0.70-1.30); GLOMERULAR FILTRATION RATE > 60.0 (>42); GLUCOSE, FASTING 159 MG/DL (74-106); PHOSPHORUS LEVEL 2.7 MG/DL (2.4-5.1); POTASSIUM SERUM 3.2 MMOL/L (3.5-5.1); SODIUM LEVEL 132 MMOL/L (136-145)
[2023-12-18] MEDS: LR 1,000 ML IV ONE (11:24)
[2023-12-18] MEDS: POTASSIUM CHLORIDE 10% LIQ 20MEQ/15ML UDC PEG ONE (12:08)
[2023-12-18] MEDS: NS 1,000 ML IV ONE (13:22)
[2023-12-19 04:00] VITALS: BP 133/63; TEMP 99.2; O2SAT 92
[2023-12-19 06:07] LABS: BASO % 0.1 % (0.0-1.0); EOS # 0.2 10^3/uL (0.0-0.5); EOS % 1.7 % (0.0-3.0); HEMATOCRIT 22.4 % (42.0-52.0); HEMOGLOBIN 7.4 g/dl (13.5-17.5); LYMPH # 0.2 10^3/uL (1.5-5.0); LYMPH % 2.4 % (24.0-44.0); MEAN CORPUSCULAR VOLUME 93.7 fl (80.0-96.0); MONO # 0.7 10^3/uL (0.0-0.8); MONO % 8.1 % (2.0-8.0); NEUTROPHILS # 7.7 10^3/uL (1.5-8.5); NEUTROPHILS % 86.6 % (36.0-66.0); PLATELET COUNT, AUTOMATED 252 10^3/uL (150-450); RED BLOOD COUNT 2.39 10^6/uL (4.30-6.10); WHITE BLOOD COUNT 8.9 10^3/uL (4.0-10.0)
[2023-12-19] MEDS: ACETAMINOPHEN TAB 650MG DOSE (2X325MG) PEG PRN (06:25)
[2023-12-19 07:11] LABS: ALBUMIN 1.5 G/DL (3.2-5.2); BLOOD UREA NITROGEN 12 MG/DL (9-23); CARBON DIOXIDE LEVEL 26 MMOL/L (20-31); CHLORIDE LEVEL 101 MMOL/L (98-107); CREATININE FOR GFR 0.74 MG/DL (0.70-1.30); GLOMERULAR FILTRATION RATE > 60.0 (>42); GLUCOSE, FASTING 182 MG/DL (74-106); MAGNESIUM LEVEL 1.5 MG/DL (1.8-2.4); SODIUM LEVEL 134 MMOL/L (136-145)
[2023-12-19] MEDS: MAG SULF 1GM/100ML (MAG RUN) 1 GM in IV 1 EA IV SCH (08:34)
[2023-12-19 08:49] VITALS: BP 98/46; TEMP 98.2; O2SAT 90
[2023-12-19] MEDS: NS 500 ML IV ONE (09:32)
[2023-12-19 12:00] VITALS: BP_SYST 110; BP_SYST 111; BP_SYST 90; BP_SYST 91; BP_DIAS 52; BP_DIAS 53; BP_DIAS 55; TEMP 97.7; O2SAT 93
[2023-12-19] MEDS: POTASSIUM PHOSPHATE INJ 20 MMOL in D5W 250 ML IV ONE (12:46)
[2023-12-19 16:00] VITALS: BP 122/64; TEMP 98.5; O2SAT 98
[2023-12-19] MEDS: FAT EMULSION IV 250 ML IV ONE (18:02)
[2023-12-19] MEDS: AMINO AC/ELECTROLYTE/DEX/CALC 1,000 ML IV SCH (18:02)
[2023-12-19 18:56] VITALS: BP 148/65; TEMP 100.6; O2SAT 90
[2023-12-19 22:16] VITALS: BP_SYST 107; BP_SYST 130; BP_DIAS 59; BP_DIAS 68; TEMP 98.6; O2SAT 93
[2023-12-20 05:47] VITALS: BP 142/64; TEMP 98.6; O2SAT 93
[2023-12-20 06:43] LABS: BASO % 0.1 % (0.0-1.0); EOS # 0.1 10^3/uL (0.0-0.5); EOS % 1.4 % (0.0-3.0); HEMATOCRIT 23.5 % (42.0-52.0); HEMOGLOBIN 7.9 g/dl (13.5-17.5); LYMPH # 0.2 10^3/uL (1.5-5.0); LYMPH % 2.3 % (24.0-44.0); MEAN CORPUSCULAR HEMOGLOBIN 30.3 pg (27.0-33.0); MEAN CORPUSCULAR HGB CONC 33.6 g/dl (32.0-36.5); MONO # 0.9 10^3/uL (0.0-0.8); MONO % 10.5 % (2.0-8.0); NEUTROPHILS # 7.3 10^3/uL (1.5-8.5); NEUTROPHILS % 84.2 % (36.0-66.0); PLATELET COUNT, AUTOMATED 293 10^3/uL (150-450); RED BLOOD COUNT 2.61 10^6/uL (4.30-6.10); WHITE BLOOD COUNT 8.7 10^3/uL (4.0-10.0)
[2023-12-20 07:16] LABS: ALBUMIN 1.5 G/DL (3.2-5.2); BLOOD UREA NITROGEN 8 MG/DL (9-23); CARBON DIOXIDE LEVEL 27 MMOL/L (20-31); CHLORIDE LEVEL 95 MMOL/L (98-107); CREATININE FOR GFR 0.63 MG/DL (0.70-1.30); GLOMERULAR FILTRATION RATE > 60.0 (>42); GLUCOSE, FASTING 221 MG/DL (74-106); MAGNESIUM LEVEL 1.6 MG/DL (1.8-2.4); PHOSPHORUS LEVEL 1.3 MG/DL (2.4-5.1); POTASSIUM SERUM 2.7 MMOL/L (3.5-5.1); SODIUM LEVEL 129 MMOL/L (136-145)
[2023-12-20] MEDS ORDERED: POTASSIUM CHLORIDE 10% LIQ 20MEQ/15ML UDC PO ONE (07:30)
[2023-12-20] MEDS: MAG SULF 1GM/100ML (MAG RUN) 1 GM in IV 1 EA IV SCH (08:25)
[2023-12-20] MEDS: POTASSIUM CHLORIDE 10% LIQ 20MEQ/15ML UDC PEG SCH (08:26)
[2023-12-20] MEDS ORDERED: KCL 10MEQ/100ML SWI (KRUN) 10 MEQ in IV 1 EA IV SCH (10:00)
[2023-12-20] MEDS: POTASSIUM PHOSPHATE INJ 30 MMOL in D5W 500 ML IV ONE (12:42)
[2023-12-20 16:02] LABS: ALBUMIN 1.6 G/DL (3.2-5.2); BLOOD UREA NITROGEN 8 MG/DL (9-23); CARBON DIOXIDE LEVEL 29 MMOL/L (20-31); CHLORIDE LEVEL 92 MMOL/L (98-107); CREATININE FOR GFR 0.67 MG/DL (0.70-1.30); GLOMERULAR FILTRATION RATE > 60.0 (>42); GLUCOSE, FASTING 217 MG/DL (74-106); PHOSPHORUS LEVEL 2.9 MG/DL (2.4-5.1); POTASSIUM SERUM 3.1 MMOL/L (3.5-5.1); SODIUM LEVEL 128 MMOL/L (136-145)
[2023-12-20 16:08] VITALS: BP 119/58; TEMP 98.5; O2SAT 95
[2023-12-20] MEDS: FAT EMULSION IV 250 ML IV ONE (18:30)
[2023-12-20] MEDS: MULTIVITAMIN -ADULT INJECTION 10 ML, ZINC/COPPER/MANGANESE/SELENIUM 1 ML in AMINO AC/EL... IV SCH (18:30)
[2023-12-20 20:31] VITALS: BP 117/58; TEMP 97.8; O2SAT 91
[2023-12-21] VITALS (8 sets, daily range): BP systolic 76–114; BP diastolic 44–58; TEMP 97.8–98.5; O2SAT 91–96
[2023-12-21 04:45] LABS: BASO % 0.2 % (0.0-1.0); EOS # 0.3 10^3/uL (0.0-0.5); EOS % 3.2 % (0.0-3.0); HEMATOCRIT 23.7 % (42.0-52.0); LYMPH # 0.3 10^3/uL (1.5-5.0); MEAN CORPUSCULAR HEMOGLOBIN 30.8 pg (27.0-33.0); MEAN CORPUSCULAR HGB CONC 33.8 g/dl (32.0-36.5); MEAN CORPUSCULAR VOLUME 91.2 fl (80.0-96.0); MONO % 10.4 % (2.0-8.0); NEUTROPHILS % 81.5 % (36.0-66.0); PLATELET COUNT, AUTOMATED 294 10^3/uL (150-450); WHITE BLOOD COUNT 9.8 10^3/uL (4.0-10.0)
[2023-12-21 05:09] LABS: ALBUMIN 1.6 G/DL (3.2-5.2); BLOOD UREA NITROGEN 7 MG/DL (9-23); CALCIUM LEVEL 7.8 MG/DL (8.3-10.6); CARBON DIOXIDE LEVEL 32 MMOL/L (20-31); CHLORIDE LEVEL 92 MMOL/L (98-107); CREATININE FOR GFR 0.66 MG/DL (0.70-1.30); GLOMERULAR FILTRATION RATE > 60.0 (>42); GLUCOSE, FASTING 180 MG/DL (74-106); PHOSPHORUS LEVEL 2.4 MG/DL (2.4-5.1); POTASSIUM SERUM 3.3 MMOL/L (3.5-5.1); SODIUM LEVEL 128 MMOL/L (136-145)
[2023-12-21] MEDS: KCL 10MEQ/100ML SWI (KRUN) 10 MEQ in IV 1 EA IV SCH (05:56)
[2023-12-21] MEDS ORDERED: PINK BISMUTH SUSP 524MG/30ML ORAL SYRINGE PO SCH (09:00)
[2023-12-21] MEDS ORDERED: LOMOTIL 2.5MG/0.025MG TABLET PO SCH (09:00)
[2023-12-21] MEDS: PINK BISMUTH SUSP 524MG/30ML ORAL SYRINGE PEG SCH (09:33)
[2023-12-21] MEDS: LOMOTIL 2.5MG/0.025MG TABLET PEG SCH (09:34)
[2023-12-21] MEDS: METAMUCIL (PSYLLIUM) PACKET PEG SCH (10:14)
[2023-12-21 10:29] LABS: ALKALINE PHOSPHATASE 170 U/L (46-116); ALT/SGPT 21 U/L (7.0-40); AST/SGOT 31 U/L (<34); BILIRUBIN,DIRECT 0.5 MG/DL (<0.4); BILIRUBIN,TOTAL 0.8 MG/DL (0.3-1.2); TOTAL PROTEIN 4.9 G/DL (5.7-8.2)
[2023-12-21] MEDS: OCTREOTIDE ACETATE 100MCG/ML VIAL **SC ADMINISTRATION ONLY SC SCH (13:58)
[2023-12-21] MEDS: NS 1,000 ML IV ONE ×2 (13:59→16:26)
[2023-12-21] MEDS: FAT EMULSION IV 250 ML IV ONE (18:16)
[2023-12-21] MEDS: AMINO AC/ELECTROLYTE/DEX/CALC 1,000 ML IV SCH (18:16)
[2023-12-21 18:50] LABS: ALBUMIN 1.5 G/DL (3.2-5.2); BLOOD UREA NITROGEN 11 MG/DL (9-23); CALCIUM LEVEL 8.1 MG/DL (8.3-10.6); CARBON DIOXIDE LEVEL 31 MMOL/L (20-31); CHLORIDE LEVEL 95 MMOL/L (98-107); CREATININE FOR GFR 0.74 MG/DL (0.70-1.30); GLOMERULAR FILTRATION RATE > 60.0 (>42); GLUCOSE, FASTING 154 MG/DL (74-106); MAGNESIUM LEVEL 2.1 MG/DL (1.8-2.4); PHOSPHORUS LEVEL 2.3 MG/DL (2.4-5.1); POTASSIUM SERUM 3.6 MMOL/L (3.5-5.1); SODIUM LEVEL 130 MMOL/L (136-145)
[2023-12-21] MEDS ORDERED: POTASSIUM PHOSPHATE INJ 30 MMOL in D5W 500 ML IV ONE (21:00)
[2023-12-21] MEDS: POTASSIUM PHOSPHATE INJ 20 MMOL in D5W 250 ML IV ONE (21:21)
[2023-12-22] MEDS: LR 1,000 ML IV SCH (01:36)
[2023-12-22 04:14] VITALS: BP 96/56; TEMP 98.3; O2SAT 98
[2023-12-22 05:45] LABS: BASO % 0.3 % (0.0-1.0); EOS # 0.3 10^3/uL (0.0-0.5); EOS % 3.8 % (0.0-3.0); HEMATOCRIT 22.8 % (42.0-52.0); HEMOGLOBIN 7.8 g/dl (13.5-17.5); LYMPH # 0.3 10^3/uL (1.5-5.0); LYMPH % 3.8 % (24.0-44.0); MEAN CORPUSCULAR HEMOGLOBIN 31.2 pg (27.0-33.0); MEAN CORPUSCULAR HGB CONC 34.2 g/dl (32.0-36.5); MEAN CORPUSCULAR VOLUME 91.2 fl (80.0-96.0); MONO # 0.9 10^3/uL (0.0-0.8); MONO % 12.6 % (2.0-8.0); NEUTROPHILS # 5.4 10^3/uL (1.5-8.5); NEUTROPHILS % 75.7 % (36.0-66.0); PLATELET COUNT, AUTOMATED 299 10^3/uL (150-450); WHITE BLOOD COUNT 7.1 10^3/uL (4.0-10.0)
[2023-12-22 06:15] LABS: ALBUMIN 1.6 G/DL (3.2-5.2); ALKALINE PHOSPHATASE 199 U/L (46-116); ALT/SGPT 22 U/L (7.0-40); AST/SGOT 24 U/L (<34); BILIRUBIN,DIRECT 0.4 MG/DL (<0.4); BILIRUBIN,TOTAL 0.6 MG/DL (0.3-1.2); BLOOD UREA NITROGEN 9 MG/DL (9-23); CALCIUM LEVEL 8.3 MG/DL (8.3-10.6); CARBON DIOXIDE LEVEL 30 MMOL/L (20-31); CHLORIDE LEVEL 94 MMOL/L (98-107); CREATININE FOR GFR 0.67 MG/DL (0.70-1.30); GLOMERULAR FILTRATION RATE > 60.0 (>42); GLUCOSE, FASTING 175 MG/DL (74-106); PHOSPHORUS LEVEL 2.7 MG/DL (2.4-5.1); POTASSIUM SERUM 4.1 MMOL/L (3.5-5.1); SODIUM LEVEL 130 MMOL/L (136-145); TOTAL PROTEIN 4.9 G/DL (5.7-8.2)
[2023-12-22 07:31] VITALS: BP 102/58; TEMP 98.3; O2SAT 95
[2023-12-22 11:56] VITALS: BP 95/52; TEMP 98.2; O2SAT 97
[2023-12-22] MEDS: MULTIVITAMIN -ADULT INJECTION 10 ML, ZINC/COPPER/MANGANESE/SELENIUM 1 ML in AMINO AC/EL... IV SCH (18:38)
[2023-12-22] MEDS: FAT EMULSION IV 250 ML IV ONE (18:38)
[2023-12-22 18:46] LABS: ALBUMIN 1.7 G/DL (3.2-5.2); BLOOD UREA NITROGEN 9 MG/DL (9-23); CALCIUM LEVEL 7.9 MG/DL (8.3-10.6); CARBON DIOXIDE LEVEL 34 MMOL/L (20-31); CHLORIDE LEVEL 96 MMOL/L (98-107); CREATININE FOR GFR 0.72 MG/DL (0.70-1.30); GLOMERULAR FILTRATION RATE > 60.0 (>42); GLUCOSE, FASTING 137 MG/DL (74-106); MAGNESIUM LEVEL 1.9 MG/DL (1.8-2.4); PHOSPHORUS LEVEL 2.5 MG/DL (2.4-5.1); POTASSIUM SERUM 4.4 MMOL/L (3.5-5.1); SODIUM LEVEL 133 MMOL/L (136-145)
[2023-12-22 18:58] VITALS: BP 111/59; TEMP 98.6; O2SAT 95
[2023-12-23 03:56] VITALS: BP 122/69; TEMP 97.7; O2SAT 98
[2023-12-23 05:36] LABS: BASO % 0.3 % (0.0-1.0); EOS # 0.3 10^3/uL (0.0-0.5); EOS % 3.7 % (0.0-3.0); HEMATOCRIT 24.9 % (42.0-52.0); LYMPH # 0.3 10^3/uL (1.5-5.0); MEAN CORPUSCULAR HEMOGLOBIN 30.9 pg (27.0-33.0); MEAN CORPUSCULAR HGB CONC 32.1 g/dl (32.0-36.5); MEAN CORPUSCULAR VOLUME 96.1 fl (80.0-96.0); MONO # 0.9 10^3/uL (0.0-0.8); MONO % 11.6 % (2.0-8.0); NEUTROPHILS # 5.8 10^3/uL (1.5-8.5); NEUTROPHILS % 75.7 % (36.0-66.0); PLATELET COUNT, AUTOMATED 362 10^3/uL (150-450); RED BLOOD COUNT 2.59 10^6/uL (4.30-6.10); WHITE BLOOD COUNT 7.7 10^3/uL (4.0-10.0)
[2023-12-23 06:07] LABS: ALBUMIN 1.7 G/DL (3.2-5.2); BLOOD UREA NITROGEN 9 MG/DL (9-23); CARBON DIOXIDE LEVEL 33 MMOL/L (20-31); CHLORIDE LEVEL 95 MMOL/L (98-107); CREATININE FOR GFR 0.74 MG/DL (0.70-1.30); GLOMERULAR FILTRATION RATE > 60.0 (>42); GLUCOSE, FASTING 194 MG/DL (74-106); PHOSPHORUS LEVEL 2.8 MG/DL (2.4-5.1); POTASSIUM SERUM 4.8 MMOL/L (3.5-5.1); SODIUM LEVEL 131 MMOL/L (136-145)
[2023-12-23 08:09] VITALS: BP 92/52; TEMP 98.2; O2SAT 95
[2023-12-23 12:06] VITALS: BP 107/57; TEMP 98.1; O2SAT 99
[2023-12-23] MEDS: cefTRIAXone SOD 2 GM in D5W MINI-BAG PLUS 50 ML IV SCH (13:43)
[2023-12-23] MEDS: methylPREDNISolone 40MG 1ML VIAL IV ONE (13:43)
[2023-12-23 15:36] LABS: ERYTHROCYTE SEDIMENTATION RATE 105 mm/hr (0-20)
[2023-12-23 18:28] LABS: ALBUMIN 1.9 G/DL (3.2-5.2); BLOOD UREA NITROGEN 11 MG/DL (9-23); CALCIUM LEVEL 8.9 MG/DL (8.3-10.6); CARBON DIOXIDE LEVEL 30 MMOL/L (20-31); CHLORIDE LEVEL 98 MMOL/L (98-107); CREATININE FOR GFR 0.63 MG/DL (0.70-1.30); GLOMERULAR FILTRATION RATE > 60.0 (>42); GLUCOSE, FASTING 165 MG/DL (74-106); MAGNESIUM LEVEL 1.9 MG/DL (1.8-2.4); PHOSPHORUS LEVEL 3.3 MG/DL (2.4-5.1); POTASSIUM SERUM 5.1 MMOL/L (3.5-5.1); SODIUM LEVEL 133 MMOL/L (136-145)
[2023-12-23] MEDS: AMINO AC/ELECTROLYTE/DEX/CALC 2,000 ML IV SCH (18:47)
[2023-12-23] MEDS: FAT EMULSION IV 250 ML IV ONE (18:47)
[2023-12-23 19:59] VITALS: BP 116/62; TEMP 97.1; O2SAT 94
[2023-12-23] MEDS: methylPREDNISolone 40MG 1ML VIAL IV SCH (21:06)
[2023-12-24 03:43] VITALS: BP 156/72; TEMP 96.7; O2SAT 96
[2023-12-24 05:33] LABS: HEMATOCRIT 25.5 % (42.0-52.0); HEMOGLOBIN 8.3 g/dl (13.5-17.5); MEAN CORPUSCULAR HEMOGLOBIN 30.9 pg (27.0-33.0); MEAN CORPUSCULAR HGB CONC 32.5 g/dl (32.0-36.5); MEAN CORPUSCULAR VOLUME 94.8 fl (80.0-96.0); PLATELET COUNT, AUTOMATED 390 10^3/uL (150-450); RED BLOOD COUNT 2.69 10^6/uL (4.30-6.10)
[2023-12-24 06:10] LABS: ALBUMIN 1.9 G/DL (3.2-5.2); BLOOD UREA NITROGEN 13 MG/DL (9-23); CALCIUM LEVEL 8.9 MG/DL (8.3-10.6); CARBON DIOXIDE LEVEL 30 MMOL/L (20-31); CHLORIDE LEVEL 99 MMOL/L (98-107); CREATININE FOR GFR 0.63 MG/DL (0.70-1.30); GLOMERULAR FILTRATION RATE > 60.0 (>42); GLUCOSE, FASTING 332 MG/DL (74-106); PHOSPHORUS LEVEL 3.4 MG/DL (2.4-5.1); POTASSIUM SERUM 5.9 MMOL/L (3.5-5.1); SODIUM LEVEL 135 MMOL/L (136-145)
[2023-12-24 07:57] VITALS: BP 148/66; TEMP 97.2; O2SAT 93
[2023-12-24 15:15] VITALS: BP 144/68; TEMP 97.3; O2SAT 96
[2023-12-24] MEDS: FAT EMULSION IV 250 ML IV ONE (17:41)
[2023-12-24] MEDS: AMINO AC/ELECTROLYTE/DEX/CALC 2,000 ML IV SCH (17:41)
[2023-12-24] MEDS ORDERED: INSULIN LISPRO (NovoLOG) PER UNIT SC SCH (18:00)
[2023-12-24 20:20] LABS: MAGNESIUM LEVEL 1.9 MG/DL (1.8-2.4); POTASSIUM SERUM 4.9 MMOL/L (3.5-5.1)
[2023-12-24 21:00] VITALS: BP 144/68; TEMP 97.5; O2SAT 96
[2023-12-25 05:08] VITALS: BP 147/70; TEMP 97.5; O2SAT 95
[2023-12-25 05:44] LABS: HEMATOCRIT 26.1 % (42.0-52.0); HEMOGLOBIN 8.2 g/dl (13.5-17.5); MEAN CORPUSCULAR HEMOGLOBIN 30.1 pg (27.0-33.0); MEAN CORPUSCULAR HGB CONC 31.4 g/dl (32.0-36.5); PLATELET COUNT, AUTOMATED 482 10^3/uL (150-450); RED BLOOD COUNT 2.72 10^6/uL (4.30-6.10); WHITE BLOOD COUNT 12.9 10^3/uL (4.0-10.0)
[2023-12-25 06:06] LABS: ALKALINE PHOSPHATASE 282 U/L (46-116); ALT/SGPT 21 U/L (7.0-40); AST/SGOT 20 U/L (<34); BILIRUBIN,DIRECT 0.3 MG/DL (<0.4); BILIRUBIN,TOTAL 0.4 MG/DL (0.3-1.2); BLOOD UREA NITROGEN 29 MG/DL (9-23); CALCIUM LEVEL 8.5 MG/DL (8.3-10.6); CARBON DIOXIDE LEVEL 30 MMOL/L (20-31); CHLORIDE LEVEL 99 MMOL/L (98-107); CREATININE FOR GFR 0.52 MG/DL (0.70-1.30); GLOMERULAR FILTRATION RATE > 60.0 (>42); GLUCOSE, FASTING 221 MG/DL (74-106); POTASSIUM SERUM 5.4 MMOL/L (3.5-5.1); SODIUM LEVEL 135 MMOL/L (136-145); TOTAL PROTEIN 5.4 G/DL (5.7-8.2)
[2023-12-25] MEDS: PATIROMER SORBITEX CALCIUM 8.4 GM POWDER PACKET (VELTASSA) PO ONE (09:36)
[2023-12-25] MEDS: INSULIN LISPRO (NovoLOG) PER UNIT SC ONE ×2 (13:32→17:12)
[2023-12-25 14:00] VITALS: BP 151/68; TEMP 97.3; O2SAT 99
[2023-12-25 14:24] LABS: BLOOD UREA NITROGEN 25 MG/DL (9-23); CALCIUM LEVEL 8.6 MG/DL (8.3-10.6); CARBON DIOXIDE LEVEL 29 MMOL/L (20-31); CHLORIDE LEVEL 94 MMOL/L (98-107); CREATININE FOR GFR 0.52 MG/DL (0.70-1.30); GLOMERULAR FILTRATION RATE > 60.0 (>42); GLUCOSE, FASTING 538 MG/DL (74-106); MAGNESIUM LEVEL 1.8 MG/DL (1.8-2.4); PHOSPHORUS LEVEL 2.5 MG/DL (2.4-5.1); POTASSIUM SERUM 4.6 MMOL/L (3.5-5.1); SODIUM LEVEL 130 MMOL/L (136-145)
[2023-12-25] MEDS: INSULIN LISPRO (NovoLOG) PER UNIT SC STA (15:17)
[2023-12-25] MEDS: SODIUM CHLORIDE 23.4% INJ 13.6 MEQ, SODIUM ACETATE INJ 13.6 MEQ, SODIUM PHOSPHATE INJ 1... IV SCH (17:34)
[2023-12-25] MEDS: FAT EMULSION IV 250 ML IV ONE (17:35)
[2023-12-25] MEDS: INSULIN LISPRO (NovoLOG) PER UNIT SC SCH (18:43)
[2023-12-25] MEDS ORDERED: GLUCAGON INJ 1MG VIAL SC PRN (21:30)
[2023-12-25] MEDS ORDERED: GLUCOSE 4 GM CHEW PO PRN (21:30)
[2023-12-25] MEDS ORDERED: DEXTROSE 50% 50ML SYRINGE IV PRN (21:30)
[2023-12-25 21:50] VITALS: BP 139/57; TEMP 97.5; O2SAT 96
[2023-12-25] MEDS ORDERED: INSULIN LISPRO (NovoLOG) PER UNIT SC SCH (22:00)
[2023-12-26 04:40] VITALS: BP 164/80; TEMP 97.7; O2SAT 95
[2023-12-26] MEDS: INSULIN LISPRO (NovoLOG) PER UNIT SC SCH (05:16)
[2023-12-26 05:50] LABS: HEMATOCRIT 25.9 % (42.0-52.0); HEMOGLOBIN 8.5 g/dl (13.5-17.5); MEAN CORPUSCULAR HGB CONC 32.8 g/dl (32.0-36.5); MEAN CORPUSCULAR VOLUME 94.5 fl (80.0-96.0); PLATELET COUNT, AUTOMATED 474 10^3/uL (150-450); RED BLOOD COUNT 2.74 10^6/uL (4.30-6.10); WHITE BLOOD COUNT 11.8 10^3/uL (4.0-10.0)
[2023-12-26 06:11] LABS: BLOOD UREA NITROGEN 22 MG/DL (9-23); CALCIUM LEVEL 9.6 MG/DL (8.3-10.6); CARBON DIOXIDE LEVEL 30 MMOL/L (20-31); CHLORIDE LEVEL 99 MMOL/L (98-107); CREATININE FOR GFR 0.52 MG/DL (0.70-1.30); GLOMERULAR FILTRATION RATE > 60.0 (>42); GLUCOSE, FASTING 249 MG/DL (74-106); MAGNESIUM LEVEL 1.8 MG/DL (1.8-2.4); POTASSIUM SERUM 4.5 MMOL/L (3.5-5.1); SODIUM LEVEL 136 MMOL/L (136-145)
[2023-12-26] MEDS: LEVEMIR (INSULIN DETEMIR) 1 UNITS/0.01ML SC SCH (09:44)
[2023-12-26] MEDS ORDERED: OCTREOTIDE ACETATE 100MCG/ML VIAL **SC ADMINISTRATION ONLY SC SCH ×2 (10:00→14:00)
[2023-12-26] MEDS: OCTREOTIDE ACETATE 100MCG/ML VIAL **SC ADMINISTRATION ONLY SC SCH (12:22)
[2023-12-26 14:00] VITALS: BP 158/75; TEMP 97.3; O2SAT 94
[2023-12-26] MEDS ORDERED: INSULIN LISPRO (NovoLOG) PER UNIT SC SCH (18:00)
[2023-12-26] MEDS: FAT EMULSION IV 250 ML IV ONE (18:07)
[2023-12-26] MEDS: SODIUM CHLORIDE 23.4% INJ 13.6 MEQ, SODIUM ACETATE INJ 13.6 MEQ, SODIUM PHOSPHATE INJ 1... IV SCH (18:07)
[2023-12-26] MEDS: LevoFLOXacin IV 750 MG in IV 1 EA IV SCH (18:47)
[2023-12-26 19:40] VITALS: BP 150/72; TEMP 97.5; O2SAT 98
[2023-12-26] MEDS ORDERED: TAMSULOSIN 0.4 MG CAP XX SCH (21:00)
[2023-12-26] MEDS ORDERED: LEVEMIR (INSULIN DETEMIR) 1 UNITS/0.01ML SC SCH (21:00)
[2023-12-26] MEDS: TERAZOSIN 1 MG CAP PEG SCH (21:31)
[2023-12-27 05:30] VITALS: BP 154/77; TEMP 97.3; O2SAT 96
[2023-12-27 06:15] VITALS: BP 160/100; TEMP 97.3; O2SAT 96
[2023-12-27 06:23] LABS: HEMATOCRIT 26.9 % (42.0-52.0); HEMOGLOBIN 8.7 g/dl (13.5-17.5); MEAN CORPUSCULAR HEMOGLOBIN 30.9 pg (27.0-33.0); MEAN CORPUSCULAR HGB CONC 32.3 g/dl (32.0-36.5); MEAN CORPUSCULAR VOLUME 95.4 fl (80.0-96.0); PLATELET COUNT, AUTOMATED 471 10^3/uL (150-450); RED BLOOD COUNT 2.82 10^6/uL (4.30-6.10); WHITE BLOOD COUNT 11.3 10^3/uL (4.0-10.0)
[2023-12-27 06:50] LABS: ALBUMIN 1.9 G/DL (3.2-5.2); ALKALINE PHOSPHATASE 330 U/L (46-116); ALT/SGPT 130 U/L (7.0-40); AST/SGOT 103 U/L (<34); BILIRUBIN,DIRECT 0.4 MG/DL (<0.4); BILIRUBIN,TOTAL 0.5 MG/DL (0.3-1.2); BLOOD UREA NITROGEN 23 MG/DL (9-23); CALCIUM LEVEL 9.1 MG/DL (8.3-10.6); CARBON DIOXIDE LEVEL 29 MMOL/L (20-31); CHLORIDE LEVEL 99 MMOL/L (98-107); CREATININE FOR GFR 0.53 MG/DL (0.70-1.30); GLOMERULAR FILTRATION RATE > 60.0 (>42); GLUCOSE, FASTING 250 MG/DL (74-106); MAGNESIUM LEVEL 1.9 MG/DL (1.8-2.4); PHOSPHORUS LEVEL 2.2 MG/DL (2.4-5.1); POTASSIUM SERUM 3.8 MMOL/L (3.5-5.1); SODIUM LEVEL 135 MMOL/L (136-145); TOTAL PROTEIN 5.1 G/DL (5.7-8.2)
[2023-12-27] MEDS: LEVEMIR (INSULIN DETEMIR) 1 UNITS/0.01ML SC ONE (12:42)
[2023-12-27] MEDS: POTASSIUM PHOSPHATE INJ 20 MMOL in D5W 250 ML IV ONE (13:31)
[2023-12-27 14:00] VITALS: BP 141/76; TEMP 97.5; O2SAT 98
[2023-12-27] MEDS ORDERED: INSULIN LISPRO (NovoLOG) PER UNIT SC SCH (18:00)
[2023-12-27] MEDS: SODIUM CHLORIDE 23.4% INJ 13.6 MEQ, SODIUM ACETATE INJ 13.6 MEQ, SODIUM PHOSPHATE INJ 1... IV SCH (18:44)
[2023-12-27 21:21] VITALS: BP 141/75; TEMP 97.5; O2SAT 97
[2023-12-27 22:13] VITALS: BP 141/75
[2023-12-28 06:00] VITALS: BP 142/73; TEMP 97.7; O2SAT 98
[2023-12-28 06:52] LABS: HEMATOCRIT 26.8 % (42.0-52.0); HEMOGLOBIN 8.8 g/dl (13.5-17.5); MEAN CORPUSCULAR HEMOGLOBIN 30.8 pg (27.0-33.0); MEAN CORPUSCULAR HGB CONC 32.8 g/dl (32.0-36.5); MEAN CORPUSCULAR VOLUME 93.7 fl (80.0-96.0); PLATELET COUNT, AUTOMATED 451 10^3/uL (150-450); RED BLOOD COUNT 2.86 10^6/uL (4.30-6.10); WHITE BLOOD COUNT 10.6 10^3/uL (4.0-10.0)
[2023-12-28 07:11] LABS: BLOOD UREA NITROGEN 24 MG/DL (9-23); CALCIUM LEVEL 8.9 MG/DL (8.3-10.6); CARBON DIOXIDE LEVEL 29 MMOL/L (20-31); CHLORIDE LEVEL 99 MMOL/L (98-107); CREATININE FOR GFR 0.56 MG/DL (0.70-1.30); GLOMERULAR FILTRATION RATE > 60.0 (>42); GLUCOSE, FASTING 229 MG/DL (74-106); MAGNESIUM LEVEL 1.9 MG/DL (1.8-2.4); PHOSPHORUS LEVEL 2.5 MG/DL (2.4-5.1); SODIUM LEVEL 132 MMOL/L (136-145)
[2023-12-28 09:00] VITALS: BP 158/92; TEMP 97.5; O2SAT 98
[2023-12-28] MEDS: LEVEMIR (INSULIN DETEMIR) 1 UNITS/0.01ML SC SCH (09:10)
[2023-12-28] MEDS: LOMOTIL 2.5MG/0.025MG TABLET PEG SCH (09:10)
[2023-12-28 09:15] VITALS: BP_SYST 116; BP_SYST 152; BP_SYST 90; BP_DIAS 65; BP_DIAS 75; BP_DIAS 79
[2023-12-28 11:46] LABS: ALKALINE PHOSPHATASE 320 U/L (46-116); ALT/SGPT 148 U/L (7.0-40); AST/SGOT 78 U/L (<34); BILIRUBIN,DIRECT 0.3 MG/DL (<0.4); BILIRUBIN,TOTAL 0.5 MG/DL (0.3-1.2); TOTAL PROTEIN 4.9 G/DL (5.7-8.2)
[2023-12-28] MEDS: LEVEMIR (INSULIN DETEMIR) 1 UNITS/0.01ML SC ONE (13:04)
[2023-12-28] MEDS: LR 1,000 ML IV ONE (13:15)
[2023-12-28] MEDS: LR 1,000 ML IV SCH (13:48)
[2023-12-28 13:57] VITALS: BP 143/69; TEMP 97.7; O2SAT 95
[2023-12-28] MEDS ORDERED: SODIUM CHLORIDE IV SCH ×2 (18:00)
[2023-12-28] MEDS ORDERED: [UNRECOGNIZED DRUG - OTHER] IV SCH (18:00)
[2023-12-28] MEDS ORDERED: SODIUM ACETATE IV SCH ×2 (18:00)
[2023-12-28] MEDS ORDERED: [UNRECOGNIZED DRUG - OTHER] IV SCH (18:00)
[2023-12-28] MEDS: SODIUM CHLORIDE IV SCH (18:25)
[2023-12-28] MEDS: SODIUM ACETATE IV SCH (18:25)
[2023-12-28] MEDS: [UNRECOGNIZED DRUG - OTHER] IV SCH (18:25)
[2023-12-28 20:30] VITALS: BP 141/70; TEMP 97.5; O2SAT 99
[2023-12-29 05:28] VITALS: BP 141/73; TEMP 97.7; O2SAT 95
[2023-12-29 06:11] LABS: HEMOGLOBIN 8.8 g/dl (13.5-17.5); MEAN CORPUSCULAR HEMOGLOBIN 31.2 pg (27.0-33.0); MEAN CORPUSCULAR HGB CONC 32.6 g/dl (32.0-36.5); MEAN CORPUSCULAR VOLUME 95.7 fl (80.0-96.0); PLATELET COUNT, AUTOMATED 458 10^3/uL (150-450); RED BLOOD COUNT 2.82 10^6/uL (4.30-6.10); WHITE BLOOD COUNT 12.3 10^3/uL (4.0-10.0)
[2023-12-29 06:34] LABS: ALBUMIN 1.8 G/DL (3.2-5.2); BLOOD UREA NITROGEN 24 MG/DL (9-23); CALCIUM LEVEL 8.5 MG/DL (8.3-10.6); CARBON DIOXIDE LEVEL 29 MMOL/L (20-31); CHLORIDE LEVEL 103 MMOL/L (98-107); CREATININE FOR GFR 0.55 MG/DL (0.70-1.30); GLOMERULAR FILTRATION RATE > 60.0 (>42); GLUCOSE, FASTING 216 MG/DL (74-106); MAGNESIUM LEVEL 1.9 MG/DL (1.8-2.4); PHOSPHORUS LEVEL 2.1 MG/DL (2.4-5.1); POTASSIUM SERUM 3.9 MMOL/L (3.5-5.1); SODIUM LEVEL 137 MMOL/L (136-145)
[2023-12-29] MEDS: POTASSIUM PHOSPHATE INJ 20 MMOL in D5W 250 ML IV ONE (10:01)
[2023-12-29] MEDS: LEVEMIR (INSULIN DETEMIR) 1 UNITS/0.01ML SC SCH (10:02)
[2023-12-29 14:00] VITALS: BP 141/74; TEMP 97.7; O2SAT 96
[2023-12-29] MEDS: SODIUM ACETATE IV SCH (18:32)
[2023-12-29] MEDS: SODIUM CHLORIDE IV SCH (18:32)
[2023-12-29] MEDS: [UNRECOGNIZED DRUG - OTHER] IV SCH (18:32)
[2023-12-29 20:00] VITALS: BP 142/74; TEMP 97.7; O2SAT 94
[2023-12-29] MEDS: LR 1,000 ML IV SCH (21:53)
[2023-12-29] MEDS: LOMOTIL 2.5MG/0.025MG TABLET PO SCH (21:53)
[2023-12-29] MEDS: TAMSULOSIN 0.4 MG CAP PO SCH (21:55)
[2023-12-29 23:19] LABS: BLOOD UREA NITROGEN 24 MG/DL (9-23); CALCIUM LEVEL 8.4 MG/DL (8.3-10.6); CARBON DIOXIDE LEVEL 28 MMOL/L (20-31); CHLORIDE LEVEL 103 MMOL/L (98-107); CREATININE FOR GFR 0.52 MG/DL (0.70-1.30); GLOMERULAR FILTRATION RATE > 60.0 (>42); GLUCOSE, FASTING 57 MG/DL (74-106); MAGNESIUM LEVEL 1.9 MG/DL (1.8-2.4); PHOSPHORUS LEVEL 2.5 MG/DL (2.4-5.1); POTASSIUM SERUM 3.6 MMOL/L (3.5-5.1); SODIUM LEVEL 137 MMOL/L (136-145)
[2023-12-30 06:00] VITALS: BP 138/72; TEMP 97.7; O2SAT 94
[2023-12-30 06:31] LABS: HEMATOCRIT 27.4 % (42.0-52.0); HEMOGLOBIN 8.8 g/dl (13.5-17.5); MEAN CORPUSCULAR HEMOGLOBIN 30.8 pg (27.0-33.0); MEAN CORPUSCULAR HGB CONC 32.1 g/dl (32.0-36.5); MEAN CORPUSCULAR VOLUME 95.8 fl (80.0-96.0); PLATELET COUNT, AUTOMATED 390 10^3/uL (150-450); RED BLOOD COUNT 2.86 10^6/uL (4.30-6.10); WHITE BLOOD COUNT 11.4 10^3/uL (4.0-10.0)
[2023-12-30 07:01] LABS: ALBUMIN 2.1 G/DL (3.2-5.2); BILIRUBIN,DIRECT 0.3 MG/DL (<0.4); BILIRUBIN,TOTAL 0.5 MG/DL (0.3-1.2); TOTAL PROTEIN 4.9 G/DL (5.7-8.2)
[2023-12-30 07:02] LABS: ALBUMIN 2.1 G/DL (3.2-5.2); BLOOD UREA NITROGEN 24 MG/DL (9-23); CALCIUM LEVEL 8.2 MG/DL (8.3-10.6); CARBON DIOXIDE LEVEL 29 MMOL/L (20-31); CHLORIDE LEVEL 102 MMOL/L (98-107); CREATININE FOR GFR 0.53 MG/DL (0.70-1.30); GLOMERULAR FILTRATION RATE > 60.0 (>42); GLUCOSE, FASTING 182 MG/DL (74-106); MAGNESIUM LEVEL 1.9 MG/DL (1.8-2.4); PHOSPHORUS LEVEL 2.5 MG/DL (2.4-5.1); POTASSIUM SERUM 3.9 MMOL/L (3.5-5.1); SODIUM LEVEL 136 MMOL/L (136-145)
[2023-12-30] MEDS ORDERED: METAMUCIL (PSYLLIUM) PACKET PO SCH (09:00)
[2023-12-30] MEDS ORDERED: GLUCOSE 4 GM CHEW PEG PRN (09:25)
[2023-12-30] MEDS: LOMOTIL 2.5MG/0.025MG TABLET PEG SCH (10:21)
[2023-12-30] MEDS: METAMUCIL (PSYLLIUM) PACKET PEG SCH (10:22)
[2023-12-30] MEDS: FINASTERIDE 5MG TAB PO SCH (10:22)
[2023-12-30 14:00] VITALS: BP 141/74; TEMP 97.5; O2SAT 97
[2023-12-30 17:35] LABS: BLOOD UREA NITROGEN 23 MG/DL (9-23); CALCIUM LEVEL 7.7 MG/DL (8.3-10.6); CARBON DIOXIDE LEVEL 29 MMOL/L (20-31); CHLORIDE LEVEL 101 MMOL/L (98-107); CREATININE FOR GFR 0.48 MG/DL (0.70-1.30); GLOMERULAR FILTRATION RATE > 60.0 (>42); GLUCOSE, FASTING 208 MG/DL (74-106); MAGNESIUM LEVEL 1.8 MG/DL (1.8-2.4); PHOSPHORUS LEVEL 2.3 MG/DL (2.4-5.1); POTASSIUM SERUM 3.8 MMOL/L (3.5-5.1); SODIUM LEVEL 134 MMOL/L (136-145)
[2023-12-30] MEDS: SODIUM CHLORIDE IV SCH (18:05)
[2023-12-30] MEDS: [UNRECOGNIZED DRUG - OTHER] IV SCH (18:05)
[2023-12-30] MEDS: SODIUM ACETATE IV SCH (18:05)
[2023-12-30 20:00] VITALS: BP 142/73; TEMP 97.7; O2SAT 94
[2023-12-30] MEDS: K-PHOS ORIGINAL (POT.ACID PHOSPHATE) 500MG TAB PEG SCH (21:33)
[2023-12-31 05:52] VITALS: BP 124/63; TEMP 97.7; O2SAT 94
[2023-12-31] MEDS: predniSONE 10MG TAB PO SCH (08:33)
[2023-12-31] MEDS: LEVEMIR (INSULIN DETEMIR) 1 UNITS/0.01ML SC SCH (08:35)
[2023-12-31 09:27] LABS: HEMATOCRIT 27.5 % (42.0-52.0); HEMOGLOBIN 9.1 g/dl (13.5-17.5); MEAN CORPUSCULAR HGB CONC 33.1 g/dl (32.0-36.5); MEAN CORPUSCULAR VOLUME 96.8 fl (80.0-96.0); PLATELET COUNT, AUTOMATED 377 10^3/uL (150-450); RED BLOOD COUNT 2.84 10^6/uL (4.30-6.10); WHITE BLOOD COUNT 10.3 10^3/uL (4.0-10.0)
[2023-12-31 09:48] LABS: HEMOGLOBIN A1c 6.2 % (4.0-6.0)
[2023-12-31 09:56] LABS: ALBUMIN 2.1 G/DL (3.2-5.2); BLOOD UREA NITROGEN 23 MG/DL (9-23); CALCIUM LEVEL 8.5 MG/DL (8.3-10.6); CARBON DIOXIDE LEVEL 29 MMOL/L (20-31); CHLORIDE LEVEL 103 MMOL/L (98-107); CREATININE FOR GFR 0.53 MG/DL (0.70-1.30); GLOMERULAR FILTRATION RATE > 60.0 (>42); GLUCOSE, FASTING 122 MG/DL (74-106); MAGNESIUM LEVEL 2.1 MG/DL (1.8-2.4); PHOSPHORUS LEVEL 2.7 MG/DL (2.4-5.1); POTASSIUM SERUM 3.9 MMOL/L (3.5-5.1); SODIUM LEVEL 137 MMOL/L (136-145)
[2023-12-31] MEDS: ENOXAPARIN 40MG/0.4ML SYRINGE (J1650 PER 10MG) SC SCH (11:57)
[2023-12-31 14:00] VITALS: BP 123/66; TEMP 97; O2SAT 96
[2023-12-31 19:49] VITALS: BP 125/65; TEMP 97.7; O2SAT 99
[2024-01-01] MEDS: LOPERAMIDE 2 MG CAPLET PO SCH (00:31)
[2024-01-01 05:48] VITALS: BP 129/67; TEMP 97.5; O2SAT 95
[2024-01-01 06:08] LABS: HEMOGLOBIN 8.9 g/dl (13.5-17.5); MEAN CORPUSCULAR HEMOGLOBIN 31.6 pg (27.0-33.0); MEAN CORPUSCULAR VOLUME 95.7 fl (80.0-96.0); PLATELET COUNT, AUTOMATED 295 10^3/uL (150-450); RED BLOOD COUNT 2.82 10^6/uL (4.30-6.10)
[2024-01-01 06:23] LABS: BLOOD UREA NITROGEN 22 MG/DL (9-23); CALCIUM LEVEL 8.8 MG/DL (8.3-10.6); CARBON DIOXIDE LEVEL 28 MMOL/L (20-31); CHLORIDE LEVEL 106 MMOL/L (98-107); GLOMERULAR FILTRATION RATE > 60.0 (>42); GLUCOSE, FASTING 67 MG/DL (74-106); MAGNESIUM LEVEL 1.8 MG/DL (1.8-2.4); PHOSPHORUS LEVEL 2.9 MG/DL (2.4-5.1); POTASSIUM SERUM 3.5 MMOL/L (3.5-5.1); SODIUM LEVEL 140 MMOL/L (136-145)
[2024-01-01] MEDS ORDERED: LOMOTIL 2.5MG/0.025MG TABLET PO SCH (09:00)
[2024-01-01] MEDS: LOMOTIL 2.5MG/0.025MG TABLET PEG SCH (10:18)
[2024-01-01] MEDS: LOPERAMIDE 2 MG CAPLET PEG SCH (13:17)
[2024-01-01 14:00] VITALS: BP 118/61; TEMP 97.7; O2SAT 98
[2024-01-01 21:20] VITALS: BP 120/62; TEMP 97.8; O2SAT 97
[2024-01-02 05:59] LABS: HEMATOCRIT 25.7 % (42.0-52.0); HEMOGLOBIN 8.6 g/dl (13.5-17.5); MEAN CORPUSCULAR HEMOGLOBIN 32.3 pg (27.0-33.0); MEAN CORPUSCULAR HGB CONC 33.5 g/dl (32.0-36.5); MEAN CORPUSCULAR VOLUME 96.6 fl (80.0-96.0); PLATELET COUNT, AUTOMATED 283 10^3/uL (150-450); RED BLOOD COUNT 2.66 10^6/uL (4.30-6.10); WHITE BLOOD COUNT 8.4 10^3/uL (4.0-10.0)
[2024-01-02 06:29] LABS: ALBUMIN 1.9 G/DL (3.2-5.2); BLOOD UREA NITROGEN 23 MG/DL (9-23); CALCIUM LEVEL 8.3 MG/DL (8.3-10.6); CARBON DIOXIDE LEVEL 30 MMOL/L (20-31); CHLORIDE LEVEL 104 MMOL/L (98-107); CREATININE FOR GFR 0.61 MG/DL (0.70-1.30); GLOMERULAR FILTRATION RATE > 60.0 (>42); GLUCOSE, FASTING 110 MG/DL (74-106); MAGNESIUM LEVEL 1.7 MG/DL (1.8-2.4); PHOSPHORUS LEVEL 3.1 MG/DL (2.4-5.1); SODIUM LEVEL 138 MMOL/L (136-145)
[2024-01-02 06:43] VITALS: BP 103/58; TEMP 97.5; O2SAT 97
[2024-01-02] MEDS: MAG SULF 1GM/100ML (MAG RUN) 1 GM in IV 1 EA IV SCH (10:57)
[2024-01-02 14:00] VITALS: BP 113/61; TEMP 97.7; O2SAT 98
[2024-01-02 20:16] VITALS: BP_SYST 111; BP_DIAS 0; BP_DIAS 60; TEMP 97.6; O2SAT 99
[2024-01-03 05:17] VITALS: BP 109/59; TEMP 97.5; O2SAT 95
[2024-01-03 09:09] LABS: ALBUMIN 2.2 G/DL (3.2-5.2); BLOOD UREA NITROGEN 21 MG/DL (9-23); CALCIUM LEVEL 8.2 MG/DL (8.3-10.6); CARBON DIOXIDE LEVEL 30 MMOL/L (20-31); CHLORIDE LEVEL 102 MMOL/L (98-107); CREATININE FOR GFR 0.51 MG/DL (0.70-1.30); GLOMERULAR FILTRATION RATE > 60.0 (>42); GLUCOSE, FASTING 124 MG/DL (74-106); MAGNESIUM LEVEL 1.8 MG/DL (1.8-2.4); POTASSIUM SERUM 3.9 MMOL/L (3.5-5.1); SODIUM LEVEL 135 MMOL/L (136-145)
[2024-01-03 14:00] VITALS: BP 107/59; TEMP 97.7; O2SAT 96
[2024-01-03 22:00] VITALS: BP 135/67; TEMP 97.5; O2SAT 98
[2024-01-04 05:34] VITALS: BP 127/68; TEMP 97.5; O2SAT 96
[2024-01-04 09:28] LABS: ALBUMIN 2.2 G/DL (3.2-5.2); BLOOD UREA NITROGEN 22 MG/DL (9-23); CALCIUM LEVEL 8.7 MG/DL (8.3-10.6); CARBON DIOXIDE LEVEL 28 MMOL/L (20-31); CHLORIDE LEVEL 101 MMOL/L (98-107); GLOMERULAR FILTRATION RATE > 60.0 (>42); GLUCOSE, FASTING 98 MG/DL (74-106); MAGNESIUM LEVEL 1.7 MG/DL (1.8-2.4); PHOSPHORUS LEVEL 3.1 MG/DL (2.4-5.1); POTASSIUM SERUM 3.9 MMOL/L (3.5-5.1); SODIUM LEVEL 134 MMOL/L (136-145)
[2024-01-04 14:00] VITALS: BP 120/64; TEMP 97.7; O2SAT 98
[2024-01-04] MEDS: MAG SULF 1GM/100ML (MAG RUN) 1 GM in IV 1 EA IV SCH (17:31)
[2024-01-05 06:00] VITALS: BP 123/66; TEMP 97.5; O2SAT 93
[2024-01-05 06:46] LABS: HEMATOCRIT 27.4 % (42.0-52.0); HEMOGLOBIN 8.9 g/dl (13.5-17.5); MEAN CORPUSCULAR HEMOGLOBIN 31.8 pg (27.0-33.0); MEAN CORPUSCULAR HGB CONC 32.5 g/dl (32.0-36.5); MEAN CORPUSCULAR VOLUME 97.9 fl (80.0-96.0); PLATELET COUNT, AUTOMATED 239 10^3/uL (150-450); WHITE BLOOD COUNT 8.2 10^3/uL (4.0-10.0)
[2024-01-05 07:21] LABS: ALBUMIN 2.3 G/DL (3.2-5.2); BLOOD UREA NITROGEN 21 MG/DL (9-23); CALCIUM LEVEL 9.2 MG/DL (8.3-10.6); CARBON DIOXIDE LEVEL 30 MMOL/L (20-31); CHLORIDE LEVEL 103 MMOL/L (98-107); CREATININE FOR GFR 0.51 MG/DL (0.70-1.30); GLOMERULAR FILTRATION RATE > 60.0 (>42); GLUCOSE, FASTING 99 MG/DL (74-106); MAGNESIUM LEVEL 1.9 MG/DL (1.8-2.4); PHOSPHORUS LEVEL 3.2 MG/DL (2.4-5.1); POTASSIUM SERUM 4.1 MMOL/L (3.5-5.1); SODIUM LEVEL 139 MMOL/L (136-145)
[2024-01-05 14:00] VITALS: BP 103/54; TEMP 97.7; O2SAT 99
[2024-01-05] MEDS ORDERED: MAGN50TA PO (14:57)
[2024-01-05] MEDS ORDERED: PRED10TA2 PO (14:57)
[2024-01-05] MEDS ORDERED: FLOM0.4C39 PO (14:57)
[2024-01-05] MEDS ORDERED: META1POW PO (14:57)
[2024-01-05] MEDS ORDERED: LOPE2CAP PO (14:57)
[2024-01-05] MEDS ORDERED: PANT40TA29 PO (14:58)
== END 2024-01-05 17:13 | disposition home health service (06) | DRG 329 ==
LOC: EDBD 12:22 → M ED 12:22 → EEVIPCON 16:56 → M ED INP 16:56 → M MSPAV 22:21 → M PCU 12-17 09:06 → M MS5PR 12-19 22:23 → M PCU 12-20 09:14 → M MSPAV 12-24 15:15
PROVIDERS: ADMIT Internal Medicine; ATTEND Internal Medicine
PROC: 02HV33Z Insertion of Infusion Device into Superior Vena Cava, Percutaneous Approach (ICD-10-PCS; 2023-11-17)
PROC: 0DH68UZ Insertion of Feeding Device into Stomach, Via Natural or Artificial Opening Endoscopic (ICD-10-PCS; 2023-11-24)
PROC: 0DBE8ZX Excision of Large Intestine, Via Natural or Artificial Opening Endoscopic, Diagnostic (ICD-10-PCS; 2023-11-24)
PROC: 0D1 Gastrointestinal System, Bypass (ICD-10-PCS; 2023-11-30)
PROC: 0DTF4ZZ Resection of Right Large Intestine, Percutaneous Endoscopic Approach (ICD-10-PCS; principal; 2023-11-30 11:30)
PROC: 0DBB0ZZ Excision of Ileum, Open Approach (ICD-10-PCS; 2023-12-11)
PROC: B246ZZZ Ultrasonography of Right and Left Heart (ICD-10-PCS; 2023-12-18)
PROC: 3E0436Z Introduction of Nutritional Substance into Central Vein, Percutaneous Approach (ICD-10-PCS; 2023-12-18)
PROC: 0W9F3ZX Drainage of Abdominal Wall, Percutaneous Approach, Diagnostic (ICD-10-PCS; 2023-12-21)
DX: K52.1 Toxic gastroenteritis and colitis (principal); K55.059 Acute (reversible) ischemia of intestine, part and extent unspecified; E46 Unspecified protein-calorie malnutrition; D84.821 Immunodeficiency due to drugs; K56.7 Ileus, unspecified; I48.20 Chronic atrial fibrillation, unspecified; I47.20 Ventricular tachycardia, unspecified; R64 Cachexia; N17.9 Acute kidney failure, unspecified; E87.1 Hypo-osmolality and hyponatremia; J98.11 Atelectasis; K94.19 Other complications of enterostomy; L02.211 Cutaneous abscess of abdominal wall; C78.01 Secondary malignant neoplasm of right lung; C79.89 Secondary malignant neoplasm of other specified sites; C32.1 Malignant neoplasm of supraglottis; Z66 Do not resuscitate; G62.9 Polyneuropathy, unspecified; E78.5 Hyperlipidemia, unspecified; R33.9 Retention of urine, unspecified; R13.10 Dysphagia, unspecified; E83.42 Hypomagnesemia; E87.6 Hypokalemia; E03.9 Hypothyroidism, unspecified; T45.1X5A Adverse effect of antineoplastic and immunosuppressive drugs, initial encounter; E83.51 Hypocalcemia; E87.8 Other disorders of electrolyte and fluid balance, not elsewhere classified; E86.0 Dehydration; R00.1 Bradycardia, unspecified; K21.9 Gastro-esophageal reflux disease without esophagitis; N40.1 Benign prostatic hyperplasia with lower urinary tract symptoms; K63.89 Other specified diseases of intestine; E83.39 Other disorders of phosphorus metabolism; K29.50 Unspecified chronic gastritis without bleeding; I95.1 Orthostatic hypotension; R73.9 Hyperglycemia, unspecified; E87.5 Hyperkalemia; T38.0X5A Adverse effect of glucocorticoids and synthetic analogues, initial encounter; K57.30 Diverticulosis of large intestine without perforation or abscess without bleeding; K64.8 Other hemorrhoids; E86.1 Hypovolemia; B96.20 Unspecified Escherichia coli [E. coli] as the cause of diseases classified elsewhere; B96.1 Klebsiella pneumoniae [K. pneumoniae] as the cause of diseases classified elsewhere; D63.0 Anemia in neoplastic disease; Z90.49 Acquired absence of other specified parts of digestive tract; Z79.82 Long term (current) use of aspirin; Z79.899 Other long term (current) drug therapy; Z88.1 Allergy status to other antibiotic agents; Z79.69 Long term (current) use of other immunomodulators and immunosuppressants; Z87.891 Personal history of nicotine dependence

== ENCOUNTER → 2024-01-11 | Outpatient (REF) | payer MEDICARE ==
[~2024-01-11] MED LIST changes: +FLOM0.4C39 PO; +KEYT1INJ IV; +LEVO50TA5 PO; +LOPE2CAP PO; +MAGN50TA PO; +META1POW PO; +METO10TA2 PO; +PANT40TA29 PO; +PRED10TA2 PO
== END ==
LOC: M LAB REF 12:11
PROVIDERS: ATTEND Internal Medicine
DX: R10.9 Unspecified abdominal pain (principal)

== ENCOUNTER → 2024-01-12 | Outpatient (CLI) | payer MEDICARE | LOC: M ONCR 14:34 | PROVIDERS: ATTEND General Practice | DX: C32.1 Malignant neoplasm of supraglottis (principal); R93.89 Abnormal findings on diagnostic imaging of other specified body structures; R10.9 Unspecified abdominal pain; Z71.2 Person consulting for explanation of examination or test findings; Z87.891 Personal history of nicotine dependence; Z92.21 Personal history of antineoplastic chemotherapy; Z92.3 Personal history of irradiation; Z93.0 Tracheostomy status; Z93.1 Gastrostomy status; Z93.3 Colostomy status; Z79.52 Long term (current) use of systemic steroids; Z79.890 Hormone replacement therapy; Z79.82 Long term (current) use of aspirin; Z79.899 Other long term (current) drug therapy | CPT/HCPCS: 86140; G0463 ==

== ENCOUNTER 2024-01-24 10:20 | Outpatient (RCR) | payer MEDICARE | END 2024-01-26 | LOC: M ONCR 10:20 | PROVIDERS: ATTEND General Practice | DX: Z51.0 Encounter for antineoplastic radiation therapy (principal); C79.51 Secondary malignant neoplasm of bone ==

== ENCOUNTER → 2024-01-30 | Outpatient (CLI) | payer MEDICARE ==
[~2024-01-30] MED LIST changes: +LOPE1CAP5 PO; +ONDA-282 PO; +ONDA-284 PO; -ONDA4TAB6 PO; -ONDA8TAB8 PO
== END ==
LOC: M ONCM 14:02
PROVIDERS: ATTEND Dietitian, Registered
DX: C32.1 Malignant neoplasm of supraglottis (principal); Z71.3 Dietary counseling and surveillance; Z68.1 Body mass index [BMI] 19.9 or less, adult

== ENCOUNTER 2024-02-06 07:35 | Outpatient (RCR) | payer MEDICARE | END 2024-02-25 | LOC: M ONCR 07:35 | PROVIDERS: ATTEND General Practice | DX: Z51.0 Encounter for antineoplastic radiation therapy (principal); C79.2 Secondary malignant neoplasm of skin; C79.51 Secondary malignant neoplasm of bone ==

== ENCOUNTER → 2024-02-06 | Outpatient (CLI) | payer MEDICARE | LOC: M ONCM 08:54 | PROVIDERS: ATTEND Dietitian, Registered | DX: C32.1 Malignant neoplasm of supraglottis (principal); Z71.3 Dietary counseling and surveillance; Z68.1 Body mass index [BMI] 19.9 or less, adult ==

== ENCOUNTER → 2024-02-06 | Outpatient (CLI) | payer MEDICARE | LOC: M PLARAD 14:02 | PROVIDERS: ATTEND Internal Medicine Hematology & Oncology | DX: C32.1 Malignant neoplasm of supraglottis (principal) | CPT/HCPCS: 78815; A9552 ==

== ENCOUNTER → 2024-02-21 | Outpatient (CLI) | payer MEDICARE | LOC: M ONCR 09:27 | PROVIDERS: ATTEND General Practice | DX: Z93.0 Tracheostomy status (principal); Z92.3 Personal history of irradiation ==

== ENCOUNTER → 2024-02-21 | Outpatient (CLI) | payer MEDICARE ==
[2024-02-21 11:24] LABS: ALBUMIN 3.1 G/DL (3.2-5.2); ALKALINE PHOSPHATASE 304 U/L (46-116); ALT/SGPT 71 U/L (7.0-40); AST/SGOT 28 U/L (<34); BILIRUBIN,TOTAL 0.5 MG/DL (0.3-1.2); BLOOD UREA NITROGEN 20 MG/DL (9-23); CALCIUM LEVEL 9.8 MG/DL (8.3-10.6); CARBON DIOXIDE LEVEL 29 MMOL/L (20-31); CHLORIDE LEVEL 101 MMOL/L (98-107); CREATININE FOR GFR 0.64 MG/DL (0.70-1.30); GLOMERULAR FILTRATION RATE > 60.0 (>42); GLUCOSE, FASTING 106 MG/DL (74-106); POTASSIUM SERUM 5.1 MMOL/L (3.5-5.1); SODIUM LEVEL 135 MMOL/L (136-145); TOTAL PROTEIN 6.3 G/DL (5.7-8.2)
[2024-02-21 11:26] LABS: PREALBUMIN 23.2 MG/DL (10.0-40.0)
== END ==
LOC: M LAB 10:17
PROVIDERS: ATTEND Surgery
DX: K52.9 Noninfective gastroenteritis and colitis, unspecified (principal); Z93.2 Ileostomy status; Z86.39 Personal history of other endocrine, nutritional and metabolic disease; Z93.0 Tracheostomy status; Z92.3 Personal history of irradiation

== ENCOUNTER → 2024-02-27 | Outpatient (REF) | payer MEDICARE ==
[2024-02-27 19:29] LABS: EOSINOPHILS 3 % (0-3); LYMPHOCYTES 4 % (16-44); MONOCYTES 13 % (0-5); NEUTROPHILS 79 % (28-66)
[2024-02-27 19:30] LABS: PLATELET ESTIMATE NORMAL (NORMAL)
== END ==
LOC: M LAB REF 16:19
PROVIDERS: ATTEND Internal Medicine
DX: D72.9 Disorder of white blood cells, unspecified (principal)

== ENCOUNTER → 2024-03-13 | Outpatient (CLI) | payer MEDICARE ==
[~2024-03-13] MED LIST changes: +BARIUM SULFATE 700 MG TABLET (E-Z-DISK) As Ordered ONE; +E-Z-PAQUE 96% w/w SUSP 176GM BTL As Ordered ONE; +VARIBAR NECTAR 40% w/v 240ML SUSP BTL As Ordered ONE; +VARIBAR PUDDING 40% w/v 230ML TUBE As Ordered ONE
== END ==
LOC: M RAD 11:01
PROVIDERS: ATTEND Nurse Practitioner
DX: C32.1 Malignant neoplasm of supraglottis (principal)

== ENCOUNTER 2024-03-15 10:30 | Outpatient (RCR) | payer MEDICARE ==
[~2024-03-15 10:30] MED LIST changes: -BARIUM SULFATE 700 MG TABLET (E-Z-DISK) As Ordered ONE; -E-Z-PAQUE 96% w/w SUSP 176GM BTL As Ordered ONE; -VARIBAR NECTAR 40% w/v 240ML SUSP BTL As Ordered ONE; -VARIBAR PUDDING 40% w/v 230ML TUBE As Ordered ONE
[2024-03-29] MEDS ORDERED: LEVO75TA4 PO (12:43)
== END 2024-03-27 ==
LOC: M ONCR 10:30
PROVIDERS: ATTEND General Practice
DX: Z51.0 Encounter for antineoplastic radiation therapy (principal); C79.2 Secondary malignant neoplasm of skin

== ENCOUNTER → 2024-03-19 | Outpatient (CLI) | payer MEDICARE ==
[~2024-03-19] MED LIST changes: +LEVO75TA4 PO
== END ==
LOC: M ONCM 08:34
PROVIDERS: ATTEND Dietitian, Registered
DX: C32.1 Malignant neoplasm of supraglottis (principal); Z71.3 Dietary counseling and surveillance; Z68.1 Body mass index [BMI] 19.9 or less, adult

== ENCOUNTER → 2024-05-08 | Outpatient (CLI) | payer MEDICARE | LOC: M ONCR 08:44 | PROVIDERS: ATTEND General Practice | DX: C32.1 Malignant neoplasm of supraglottis (principal); C79.51 Secondary malignant neoplasm of bone; Z87.891 Personal history of nicotine dependence; Z79.890 Hormone replacement therapy; Z79.82 Long term (current) use of aspirin; Z79.899 Other long term (current) drug therapy; Z88.8 Allergy status to other drugs, medicaments and biological substances; Z92.29 Personal history of other drug therapy; Z92.21 Personal history of antineoplastic chemotherapy; Z92.3 Personal history of irradiation ==

== ENCOUNTER → 2024-05-28 | Outpatient (CLI) | payer MEDICARE | LOC: M PLARAD 08:07 | PROVIDERS: ATTEND Internal Medicine Hematology & Oncology | DX: C32.1 Malignant neoplasm of supraglottis (principal) | CPT/HCPCS: 78815; A9552 ==

== ENCOUNTER → 2024-05-29 | Outpatient (CLI) | payer MEDICARE ==
[~2024-05-29] MED LIST changes: -KEYT1INJ IV; +PEMB100V2 IV
== END ==
LOC: M ONCR 09:36
PROVIDERS: ATTEND General Practice
DX: C77.2 Secondary and unspecified malignant neoplasm of intra-abdominal lymph nodes (principal); C79.51 Secondary malignant neoplasm of bone

== ENCOUNTER 2024-06-10 13:48 | Outpatient (RCR) | payer MEDICARE | END 2024-06-27 | LOC: M ONCR 13:48 | PROVIDERS: ATTEND General Practice | DX: Z51.0 Encounter for antineoplastic radiation therapy (principal); C78.01 Secondary malignant neoplasm of right lung ==

== ENCOUNTER 2024-06-27 08:15 | Day surgery (SDC) | payer MEDICARE ==
[~2024-06-27] VITALS: Ht 182.9 cm; Wt 73.0 kg
[2024-06-27] MEDS ORDERED: ONDANSETRON 4MG 2ML VIAL As Ordered ONE (11:15)
[2024-06-27] MEDS ORDERED: fentaNYL 100 MCG/2 ML INJECTION As Ordered ONE (11:15)
[2024-06-27] MEDS ORDERED: dexmedeTOMIDine (4MCG/ML)200MCG/50ML BTL (PRECEDEX) As Ordered ONE (11:15)
[2024-06-27] MEDS ORDERED: MIDAZOLAM INJ 2MG/2ML VIAL As Ordered ONE (11:15)
[2024-06-27] MEDS ORDERED: propofoL 200 MG/20 ML VIAL As Ordered ONE (11:17)
[2024-06-27] MEDS ORDERED: LIDOCAINE 2% 100MG/5ML SDV (FOR ANES.) As Ordered ONE (11:17)
[2024-06-27] MEDS ORDERED: METOCLOPRAMIDE INJ 10MG/2ML VIAL As Ordered ONE (11:17)
[2024-06-27] MEDS ORDERED: ROCURONIUM BROMIDE 50MG/5ML VIAL As Ordered ONE (11:54)
[2024-06-27] MEDS ORDERED: LIDOCAINE W/EPINEPHRINE 1% 20ML VIAL As Ordered ONE (12:09)
[2024-06-27] MEDS ORDERED: ACETAMINOPHEN 1000MG 100ML IV BAG As Ordered ONE (12:42)
[2024-06-27] MEDS ORDERED: SUCCINYLCHOLINE 100MG/5ML SYRINGE As Ordered ONE (12:47)
[2024-06-27] MEDS ORDERED: PHENYLephrine 500MCG 5ML (100MCG/ML) SYRINGE As Ordered ONE (12:53)
[2024-06-27] MEDS: ceFAZolin 1GM VIAL As Ordered ONE (13:10)
[2024-06-27] MEDS: metroNIDAZOLE/NACL 500MG(5MG/ML) 100ML BAG As Ordered ONE (13:13)
[2024-06-27] MEDS ORDERED: ePHEDrine SULFATE 25 MG/5 ML(5MG/ML) SYRINGE As Ordered ONE (13:16)
[2024-06-27] MEDS ORDERED: SUGAMMADEX SODIUM 500 MG/5 ML VIAL (BRIDION) As Ordered ONE (13:33)
[2024-06-27] MEDS: PHENYLEPHRINE 0.5% NASAL SPRAY 15 ML As Ordered ONE (14:50)
[2024-06-27] MEDS: BACITRACIN OINTMENT 30GM TUBE As Ordered ONE (14:50)
[2024-06-27 16:00] VITALS: BP 126/62; TEMP 97.5; O2SAT 95
== END 2024-06-27 16:33 | disposition home or self-care (01) ==
LOC: M SDC 08:15
PROVIDERS: ATTEND Otolaryngology
DX: J95.04 Tracheo-esophageal fistula following tracheostomy (principal); I48.91 Unspecified atrial fibrillation; Z88.8 Allergy status to other drugs, medicaments and biological substances; Z79.899 Other long term (current) drug therapy
CPT/HCPCS: 14041; 15574; 31825; J0131; J0330; J0690; J1100; J1836; J2250; J2371; J2405; J2765; J3010

== ENCOUNTER 2024-07-05 11:15 | Outpatient (RCR) | payer MEDICARE | END 2024-07-27 | LOC: M ONCR 11:15 | PROVIDERS: ATTEND General Practice | DX: Z51.0 Encounter for antineoplastic radiation therapy (principal); C78.01 Secondary malignant neoplasm of right lung ==

== ENCOUNTER → 2024-08-15 | Outpatient (CLI) | payer MEDICARE ==
[~2024-08-15] MED LIST changes: +CLIN2CR PV; +CLIN2CR TOP; +ISOVUE-370 76% 100ML VIAL As Ordered ONE; +LEVO88TA3
== END ==
LOC: M RAD 10:24
PROVIDERS: ATTEND Specialist
DX: C32.1 Malignant neoplasm of supraglottis (principal)
CPT/HCPCS: 70491; 71260; Q9967

== ENCOUNTER 2024-08-23 09:03 | Outpatient (RCR) | payer MEDICARE ==
[~2024-08-23 09:03] MED LIST changes: +B-10TAB2 PO; -ISOVUE-370 76% 100ML VIAL As Ordered ONE; +MULT1TAB8 PO
[2024-08-23] MEDS ORDERED: CLIN2CR TOP (13:48)
[2024-08-23] MEDS ORDERED: CLIN1LOT TOP (16:33)
== END 2024-08-27 ==
LOC: M PT 09:03
PROVIDERS: ATTEND General Practice
DX: C32.1 Malignant neoplasm of supraglottis (principal); C77.2 Secondary and unspecified malignant neoplasm of intra-abdominal lymph nodes

== ENCOUNTER → 2024-09-13 | Outpatient (CLI) | payer MEDICARE ==
[~2024-09-13] MED LIST changes: +CLIN1LOT TOP; +PROHANCE 279.3MG/ML 15ML VIAL As Ordered ONE
== END ==
LOC: M RAD 08:17
PROVIDERS: ATTEND Specialist
DX: C76.0 Malignant neoplasm of head, face and neck (principal); R22.1 Localized swelling, mass and lump, neck
CPT/HCPCS: 72156; A9576

== ENCOUNTER 2024-09-24 12:20 | Inpatient (IN) | payer MEDICARE ==
[~2024-09-24] VITALS: Ht 182.9 cm; Wt 75.4 kg
[~2024-09-24 12:20] MED LIST changes: +B-10TAB2 GT; -B-10TAB2 PO; -LEVO88TA3; +LEVO88TA3 PO; -PROHANCE 279.3MG/ML 15ML VIAL As Ordered ONE
[2024-09-24 14:09] LABS: BASO % 0.2 % (0.0-1.0); EOS % 0.1 % (0.0-3.0); HEMATOCRIT 35.2 % (42.0-52.0); HEMOGLOBIN 11.8 g/dl (13.5-17.5); LYMPH # 0.2 10^3/uL (1.5-5.0); LYMPH % 1.4 % (24.0-44.0); MEAN CORPUSCULAR HEMOGLOBIN 31.6 pg (27.0-33.0); MEAN CORPUSCULAR HGB CONC 33.5 g/dl (32.0-36.5); MEAN CORPUSCULAR VOLUME 94.1 fl (80.0-96.0); MONO # 1.1 10^3/uL (0.0-0.8); MONO % 7.9 % (2.0-8.0); NEUTROPHILS # 12.8 10^3/uL (1.5-8.5); NEUTROPHILS % 89.7 % (36.0-66.0); PLATELET COUNT, AUTOMATED 170 10^3/uL (150-450); RED BLOOD COUNT 3.74 10^6/uL (4.30-6.10); WHITE BLOOD COUNT 14.3 10^3/uL (4.0-10.0)
[2024-09-24 14:36] LABS: ALBUMIN 3.3 G/DL (3.2-5.2); ALKALINE PHOSPHATASE 141 U/L (40-129); ALT/SGPT 52 U/L (7.0-40); AST/SGOT 37 U/L (<34); BILIRUBIN,DIRECT 0.2 MG/DL (<0.4); BILIRUBIN,TOTAL 0.8 MG/DL (0.3-1.2); BLOOD UREA NITROGEN 29 MG/DL (9-23); CALCIUM LEVEL 8.9 MG/DL (8.3-10.6); CARBON DIOXIDE LEVEL 26 MMOL/L (20-31); CHLORIDE LEVEL 103 MMOL/L (98-107); CREATININE FOR GFR 0.86 MG/DL (0.70-1.30); GLOMERULAR FILTRATION RATE > 60.0 (>42); GLUCOSE, FASTING 114 MG/DL (74-106); POTASSIUM SERUM 4.7 MMOL/L (3.5-5.1); SODIUM LEVEL 139 MMOL/L (136-145); TOTAL PROTEIN 7.1 G/DL (5.7-8.2)
[2024-09-24] MEDS: AZITHROMYCIN 250MG TABLET PO ONE (15:32)
[2024-09-24] MEDS: cefTRIAXone SOD 1 GM in DEXTROSE 5% (D5W) ADV/MINI-BAG 50 ML IV ONE (15:33)
[2024-09-24] MEDS ORDERED: MAGN50TA GT (16:46)
[2024-09-24] MEDS ORDERED: HOME MED LIST COMPLETE! XX SCH (16:50)
[2024-09-24] MEDS ORDERED: METAMUCIL (PSYLLIUM) PACKET PO PRN (19:05)
[2024-09-24 21:13] VITALS: BP 132/61; TEMP 98.1; O2SAT 95
[2024-09-24] MEDS: FINASTERIDE 5MG TAB PO SCH (21:27)
[2024-09-24] MEDS: MAGNESIUM GLUCONATE 500 MG TAB GT SCH (21:27)
[2024-09-24] MEDS: LR 1,000 ML IV SCH (23:07)
[2024-09-25] VITALS (10 sets, daily range): BP systolic 122–134; BP diastolic 62–70; TEMP 97.7–97.9; O2SAT 90–96
[2024-09-25] MEDS: LEVOTHYROXINE 88MCG TABLET (0.088 MG) PO SCH (04:55)
[2024-09-25 06:16] LABS: HEMATOCRIT 30.6 % (42.0-52.0); HEMOGLOBIN 10.4 g/dl (13.5-17.5); MEAN CORPUSCULAR HEMOGLOBIN 31.6 pg (27.0-33.0); PLATELET COUNT, AUTOMATED 156 10^3/uL (150-450); RED BLOOD COUNT 3.29 10^6/uL (4.30-6.10); WHITE BLOOD COUNT 8.5 10^3/uL (4.0-10.0)
[2024-09-25 06:38] LABS: BLOOD UREA NITROGEN 27 MG/DL (9-23); CALCIUM LEVEL 8.8 MG/DL (8.3-10.6); CARBON DIOXIDE LEVEL 28 MMOL/L (20-31); CHLORIDE LEVEL 104 MMOL/L (98-107); CREATININE FOR GFR 0.85 MG/DL (0.70-1.30); GLOMERULAR FILTRATION RATE > 60.0 (>42); GLUCOSE, FASTING 109 MG/DL (74-106); POTASSIUM SERUM 3.9 MMOL/L (3.5-5.1); SODIUM LEVEL 139 MMOL/L (136-145)
[2024-09-25] MEDS ORDERED: PANTOPRAZOLE 40MG TAB (PROTONIX) PO SCH (09:00)
[2024-09-25] MEDS ORDERED: AZITHROMYCIN 250MG TABLET PO SCH (09:00)
[2024-09-25] MEDS ORDERED: ASPIRIN 81MG ENTERIC TABLET PO SCH (09:00)
[2024-09-25] MEDS: cefTRIAXone SOD 1 GM in DEXTROSE 5% (D5W) ADV/MINI-BAG 50 ML IV SCH (09:47)
[2024-09-25] MEDS: PANTOPRAZOLE 40MG VIAL IV SCH (11:34)
[2024-09-25] MEDS: AZITHROMYCIN 250MG TABLET GT SCH (12:38)
[2024-09-25] MEDS: ASPIRIN 81MG CHEW TABLET GT SCH (12:39)
[2024-09-26] VITALS (8 sets, daily range): BP systolic 131–160; BP diastolic 62–84; TEMP 97.5–98.6; O2SAT 91–97
[2024-09-26] MEDS: LEVOTHYROXINE 88MCG TABLET (0.088 MG) GT SCH (05:49)
[2024-09-26 06:52] LABS: HEMATOCRIT 31.4 % (42.0-52.0); HEMOGLOBIN 10.6 g/dl (13.5-17.5); MEAN CORPUSCULAR HEMOGLOBIN 31.2 pg (27.0-33.0); MEAN CORPUSCULAR HGB CONC 33.8 g/dl (32.0-36.5); MEAN CORPUSCULAR VOLUME 92.4 fl (80.0-96.0); PLATELET COUNT, AUTOMATED 169 10^3/uL (150-450); WHITE BLOOD COUNT 5.9 10^3/uL (4.0-10.0)
[2024-09-26 07:21] LABS: BLOOD UREA NITROGEN 21 MG/DL (9-23); CALCIUM LEVEL 8.6 MG/DL (8.3-10.6); CARBON DIOXIDE LEVEL 26 MMOL/L (20-31); CHLORIDE LEVEL 104 MMOL/L (98-107); CREATININE FOR GFR 0.77 MG/DL (0.70-1.30); GLOMERULAR FILTRATION RATE > 60.0 (>42); GLUCOSE, FASTING 122 MG/DL (74-106); POTASSIUM SERUM 3.9 MMOL/L (3.5-5.1); SODIUM LEVEL 139 MMOL/L (136-145)
[2024-09-27 00:20] VITALS: BP 159/89; TEMP 97.7; O2SAT 93
[2024-09-27 05:32] VITALS: BP 158/81; TEMP 97.7; O2SAT 96
[2024-09-27 06:05] LABS: HEMATOCRIT 32.2 % (42.0-52.0); HEMOGLOBIN 10.7 g/dl (13.5-17.5); MEAN CORPUSCULAR HEMOGLOBIN 30.7 pg (27.0-33.0); MEAN CORPUSCULAR HGB CONC 33.2 g/dl (32.0-36.5); MEAN CORPUSCULAR VOLUME 92.3 fl (80.0-96.0); PLATELET COUNT, AUTOMATED 169 10^3/uL (150-450); RED BLOOD COUNT 3.49 10^6/uL (4.30-6.10); WHITE BLOOD COUNT 4.9 10^3/uL (4.0-10.0)
[2024-09-27 06:24] LABS: BLOOD UREA NITROGEN 20 MG/DL (9-23); CALCIUM LEVEL 8.7 MG/DL (8.3-10.6); CARBON DIOXIDE LEVEL 25 MMOL/L (20-31); CHLORIDE LEVEL 105 MMOL/L (98-107); CREATININE FOR GFR 0.72 MG/DL (0.70-1.30); GLOMERULAR FILTRATION RATE > 60.0 (>42); GLUCOSE, FASTING 137 MG/DL (74-106); POTASSIUM SERUM 3.8 MMOL/L (3.5-5.1); SODIUM LEVEL 139 MMOL/L (136-145)
[2024-09-27 08:00] VITALS: BP 154/80; TEMP 97.9; O2SAT 96
[2024-09-27] MEDS ORDERED: LEVO1TAB40 PO (14:39)
[2024-09-28] MEDS ORDERED: META28.32 PO (17:55)
[2024-09-28] MEDS ORDERED: RA B1TAB2 GT (17:55)
[2024-09-28] MEDS ORDERED: PANT-23 PO (17:55)
[2024-09-28] MEDS ORDERED: MULTCHW14 PO (17:55)
[2024-09-29 20:52] LABS: URINE STREP PNEUMONIAE ANTIGEN NOT DETECTED (NOT DETECT)
== END 2024-09-27 16:55 | disposition home health service (06) | DRG 871 ==
LOC: EDBD 12:20 → M ED 12:22 → M ED INP 19:00 → M MSPAV 20:51
PROVIDERS: ADMIT Student in an Organized Health Care Education/Training Program; ATTEND Student in an Organized Health Care Education/Training Program
DX: A41.9 Sepsis, unspecified organism (principal); J15.0 Pneumonia due to Klebsiella pneumoniae; I48.91 Unspecified atrial fibrillation; G62.9 Polyneuropathy, unspecified; E78.5 Hyperlipidemia, unspecified; R33.9 Retention of urine, unspecified; N40.1 Benign prostatic hyperplasia with lower urinary tract symptoms; D63.0 Anemia in neoplastic disease; E03.9 Hypothyroidism, unspecified; C32.1 Malignant neoplasm of supraglottis; R00.0 Tachycardia, unspecified; R13.10 Dysphagia, unspecified; Z66 Do not resuscitate; Z92.21 Personal history of antineoplastic chemotherapy; Z92.3 Personal history of irradiation; Z93.1 Gastrostomy status

== ENCOUNTER 2024-09-28 15:06 | Observation (INO) | payer MEDICARE ==
[~2024-09-28] VITALS: Ht 182.9 cm; Wt 71.0 kg
[~2024-09-28 15:06] MED LIST changes: +MAGN50TA GT
[2024-09-28 15:56] LABS: VENOUS O2 SATURATION 49.1 % (60.0-80.0); VENOUS PARTIAL PRESSURE CO2 47.9 mmHg (38.0-50.0); VENOUS PARTIAL PRESSURE O2 27.9 mmHg (30.0-50.0); VENOUS PH 7.352 UNITS (7.330-7.430); VENOUS STANDARD HCO3 23.5 MMOL/L; VENOUS TOTAL CO2 27.4 MMOL/L (24.0-28.0)
[2024-09-28] MEDS: TRANEXAMIC ACID 100 MG/ML 10ML VIAL NEB ONE (15:57)
[2024-09-28 15:59] LABS: BASO % 0.4 % (0.0-1.0); EOS # 0.3 10^3/uL (0.0-0.5); EOS % 5.8 % (0.0-3.0); HEMOGLOBIN 11.2 g/dl (13.5-17.5); LYMPH # 0.3 10^3/uL (1.5-5.0); LYMPH % 5.4 % (24.0-44.0); MEAN CORPUSCULAR HEMOGLOBIN 30.9 pg (27.0-33.0); MEAN CORPUSCULAR HGB CONC 32.9 g/dl (32.0-36.5); MEAN CORPUSCULAR VOLUME 93.7 fl (80.0-96.0); MONO # 0.8 10^3/uL (0.0-0.8); MONO % 16.7 % (2.0-8.0); NEUTROPHILS # 3.5 10^3/uL (1.5-8.5); NEUTROPHILS % 70.7 % (36.0-66.0); PLATELET COUNT, AUTOMATED 192 10^3/uL (150-450); RED BLOOD COUNT 3.63 10^6/uL (4.30-6.10)
[2024-09-28] MEDS ORDERED: ISOVUE-370 76% 100ML VIAL As Ordered ONE (16:01)
[2024-09-28 16:10] LABS: INR 0.97; PROTHROMBIN TIME 13.2 SECONDS (12.5-14.5)
[2024-09-28 16:26] LABS: ALBUMIN 3.1 G/DL (3.2-5.2); ALKALINE PHOSPHATASE 145 U/L (40-129); ALT/SGPT 43 U/L (7.0-40); AST/SGOT 24 U/L (<34); BILIRUBIN,DIRECT 0.2 MG/DL (<0.4); BILIRUBIN,TOTAL 0.5 MG/DL (0.3-1.2); BLOOD UREA NITROGEN 26 MG/DL (9-23); CARBON DIOXIDE LEVEL 30 MMOL/L (20-31); CHLORIDE LEVEL 103 MMOL/L (98-107); CREATININE FOR GFR 0.87 MG/DL (0.70-1.30); GLOMERULAR FILTRATION RATE > 60.0 (>42); GLUCOSE, FASTING 91 MG/DL (74-106); SODIUM LEVEL 141 MMOL/L (136-145); TOTAL PROTEIN 6.9 G/DL (5.7-8.2)
[2024-09-28] MEDS ORDERED: RA B1TAB2 GT (17:55)
[2024-09-28] MEDS ORDERED: PANT-23 PO (17:55)
[2024-09-28] MEDS ORDERED: HOME MED LIST COMPLETE! XX SCH ×2 (17:55)
[2024-09-28] MEDS ORDERED: META28.32 PO (17:55)
[2024-09-28] MEDS ORDERED: MULTCHW14 PO (17:55)
[2024-09-28] MEDS: LevoFLOXacin IV 750 MG in IV 1 EA IV SCH (19:39)
[2024-09-28 19:44] LABS: PROCALCITONIN 0.11 ng/ml
[2024-09-29] MEDS: TRANEXAMIC ACID 100 MG/ML 10ML VIAL NEB SCH (01:59)
[2024-09-29 06:09] LABS: HEMATOCRIT 32.8 % (42.0-52.0); HEMOGLOBIN 10.6 g/dl (13.5-17.5); MEAN CORPUSCULAR HEMOGLOBIN 30.4 pg (27.0-33.0); MEAN CORPUSCULAR HGB CONC 32.3 g/dl (32.0-36.5); PLATELET COUNT, AUTOMATED 169 10^3/uL (150-450); RED BLOOD COUNT 3.49 10^6/uL (4.30-6.10); WHITE BLOOD COUNT 4.6 10^3/uL (4.0-10.0)
[2024-09-29 06:49] LABS: PROCALCITONIN 0.09 ng/ml
[2024-09-29 06:51] LABS: ALBUMIN 2.8 G/DL (3.2-5.2); ALKALINE PHOSPHATASE 120 U/L (40-129); ALT/SGPT 39 U/L (7.0-40); AST/SGOT 23 U/L (<34); BILIRUBIN,TOTAL 0.6 MG/DL (0.3-1.2); BLOOD UREA NITROGEN 28 MG/DL (9-23); CALCIUM LEVEL 8.7 MG/DL (8.3-10.6); CARBON DIOXIDE LEVEL 27 MMOL/L (20-31); CHLORIDE LEVEL 107 MMOL/L (98-107); CREATININE FOR GFR 0.83 MG/DL (0.70-1.30); GLOMERULAR FILTRATION RATE > 60.0 (>42); GLUCOSE, FASTING 100 MG/DL (74-106); POTASSIUM SERUM 4.1 MMOL/L (3.5-5.1); SODIUM LEVEL 144 MMOL/L (136-145); TOTAL PROTEIN 6.4 G/DL (5.7-8.2)
[2024-09-29 08:00] VITALS: O2SAT 94
[2024-09-29 08:13] VITALS: BP 133/75; TEMP 97.5; O2SAT 96
[2024-09-29 10:00] VITALS: O2SAT 95
[2024-09-29 12:00] VITALS: BP 137/63; TEMP 97.5; O2SAT 95
[2024-09-29 14:00] VITALS: O2SAT 94
[2024-09-29 23:53] VITALS: BP 140/67; TEMP 98.8; O2SAT 98
[2024-09-30 04:46] VITALS: BP 143/63; TEMP 97.7; O2SAT 97
[2024-09-30 07:36] VITALS: BP 142/64; TEMP 97.6; O2SAT 97
[2024-09-30] MEDS ORDERED: MAGNESIUM GLUCONATE 500 MG TAB GT SCH (09:00)
[2024-09-30] MEDS: PANTOPRAZOLE 40MG TAB (PROTONIX) PO SCH (11:28)
[2024-09-30] MEDS: LEVOTHYROXINE 88MCG TABLET (0.088 MG) PO SCH (11:28)
[2024-09-30] MEDS: MAGNESIUM GLUCONATE 500 MG TAB GT SCH (11:38)
[2024-09-30 12:09] VITALS: BP 133/63; TEMP 97.5; O2SAT 98
[2024-09-30 12:26] VITALS: BP 160/71; TEMP 97.8; O2SAT 99
[2024-09-30 15:55] VITALS: BP 137/64; TEMP 97.1; O2SAT 100
[2024-09-30 19:36] VITALS: BP 161/68; TEMP 98.5; O2SAT 97
[2024-09-30] MEDS ORDERED: MAGNESIUM GLUCONATE 500 MG TAB PO SCH (21:00)
[2024-09-30] MEDS: FINASTERIDE 5MG TAB PO SCH (21:52)
[2024-10-01 00:08] VITALS: BP 135/62; TEMP 98.4; O2SAT 95
[2024-10-01 05:41] VITALS: BP 155/74; TEMP 98.1; O2SAT 93
[2024-10-01 07:36] VITALS: BP 135/71; TEMP 98.9; O2SAT 98
[2024-10-01 12:18] VITALS: BP 151/63; TEMP 97.6; O2SAT 97
[2024-10-01 12:36] LABS: HEMATOCRIT 31.7 % (42.0-52.0); HEMOGLOBIN 10.5 g/dl (13.5-17.5)
[2024-10-01 13:03] LABS: BLOOD UREA NITROGEN 27 MG/DL (9-23); CARBON DIOXIDE LEVEL 26 MMOL/L (20-31); CHLORIDE LEVEL 107 MMOL/L (98-107); CREATININE FOR GFR 0.93 MG/DL (0.70-1.30); GLOMERULAR FILTRATION RATE > 60.0 (>42); GLUCOSE, FASTING 76 MG/DL (74-106); MAGNESIUM LEVEL 1.7 MG/DL (1.8-2.4); PHOSPHORUS LEVEL 3.6 MG/DL (2.4-5.1); POTASSIUM SERUM 4.3 MMOL/L (3.5-5.1); SODIUM LEVEL 141 MMOL/L (136-145)
[2024-10-01 13:04] LABS: PREALBUMIN 13.3 MG/DL (10.0-40.0)
[2024-10-01] MEDS ORDERED: LEVO1TAB40 PO (13:37)
[2024-10-02] MEDS ORDERED: LEVO1TAB40 PO (12:15)
== END 2024-10-01 14:47 | disposition home health service (06) ==
LOC: EDBD 15:06 → M ED 15:06 → EDUNIT# 15:06 → M ED INP 15:07 → M PCU 09-29 23:51
PROVIDERS: ADMIT Student in an Organized Health Care Education/Training Program; ATTEND Student in an Organized Health Care Education/Training Program
DX: R04.2 Hemoptysis (principal); Z85.21 Personal history of malignant neoplasm of larynx; J15.0 Pneumonia due to Klebsiella pneumoniae; R06.89 Other abnormalities of breathing; R13.10 Dysphagia, unspecified; Z93.1 Gastrostomy status; I48.91 Unspecified atrial fibrillation; R05.8 Other specified cough; Z92.3 Personal history of irradiation; D64.9 Anemia, unspecified; Z79.899 Other long term (current) drug therapy; Z79.2 Long term (current) use of antibiotics; Z79.890 Hormone replacement therapy; Z79.82 Long term (current) use of aspirin; Z66 Do not resuscitate; Z88.8 Allergy status to other drugs, medicaments and biological substances
CPT/HCPCS: 70498; 71045; 71275; 80047; 80048; 80076; 82803; 83605; 83880; 84145; 85610; 86850; 86900; 86901; 87040; 87070; 87077; 87186; 87205; 87486; 87581; 87633; 87798; 93005; 93041; 94640; 94760; 99285; J1956; Q9967

== ENCOUNTER 2024-10-02 09:06 | Inpatient (IN) | payer MEDICARE ==
[~2024-10-02 09:06] MED LIST changes: +META28.32 PO; +MULTCHW14 PO; +PANT-23 PO; +RA B1TAB2 GT
[2024-10-02 10:17] LABS: PROTHROMBIN TIME 13.5 SECONDS (12.5-14.5)
[2024-10-02 10:19] LABS: BASO % 0.4 % (0.0-1.0); EOS # 0.3 10^3/uL (0.0-0.5); EOS % 6.1 % (0.0-3.0); HEMATOCRIT 31.7 % (42.0-52.0); HEMOGLOBIN 10.5 g/dl (13.5-17.5); LYMPH # 0.4 10^3/uL (1.5-5.0); LYMPH % 6.7 % (24.0-44.0); MEAN CORPUSCULAR HEMOGLOBIN 31.3 pg (27.0-33.0); MEAN CORPUSCULAR HGB CONC 33.1 g/dl (32.0-36.5); MEAN CORPUSCULAR VOLUME 94.3 fl (80.0-96.0); MONO # 0.8 10^3/uL (0.0-0.8); MONO % 14.5 % (2.0-8.0); NEUTROPHILS # 3.8 10^3/uL (1.5-8.5); NEUTROPHILS % 71.5 % (36.0-66.0); PLATELET COUNT, AUTOMATED 216 10^3/uL (150-450); RED BLOOD COUNT 3.36 10^6/uL (4.30-6.10); WHITE BLOOD COUNT 5.2 10^3/uL (4.0-10.0)
[2024-10-02 10:25] LABS: ALKALINE PHOSPHATASE 123 U/L (40-129); ALT/SGPT 46 U/L (7.0-40); AST/SGOT 34 U/L (<34); BILIRUBIN,DIRECT 0.1 MG/DL (<0.4); BILIRUBIN,TOTAL 0.5 MG/DL (0.3-1.2); BLOOD UREA NITROGEN 28 MG/DL (9-23); CALCIUM LEVEL 8.8 MG/DL (8.3-10.6); CARBON DIOXIDE LEVEL 28 MMOL/L (20-31); CHLORIDE LEVEL 105 MMOL/L (98-107); CREATININE FOR GFR 0.92 MG/DL (0.70-1.30); GLOMERULAR FILTRATION RATE > 60.0 (>42); GLUCOSE, FASTING 120 MG/DL (74-106); POTASSIUM SERUM 4.5 MMOL/L (3.5-5.1); SODIUM LEVEL 140 MMOL/L (136-145); TOTAL PROTEIN 6.6 G/DL (5.7-8.2)
[2024-10-02] MEDS: TRANEXAMIC ACID 100 MG/ML 10ML VIAL NEB ONE (10:55)
[2024-10-02] MEDS ORDERED: LEVO1TAB40 PO (12:15)
[2024-10-02] MEDS ORDERED: HOME MED LIST COMPLETE! XX SCH (12:20)
[2024-10-02 19:04] VITALS: BP 130/72; TEMP 99; O2SAT 99
[2024-10-02 19:50] VITALS: BP 135/68; TEMP 97.4; O2SAT 97
[2024-10-02] MEDS: TRANEXAMIC ACID 100 MG/ML 10ML VIAL NEB SCH (20:41)
[2024-10-02] MEDS: ALBUTEROL SULFATE 2.5MG/0.5ML INH NEB SOLN NEB PRN (20:41)
[2024-10-02 23:46] VITALS: BP 126/58; TEMP 97.4; O2SAT 96
[2024-10-03 03:43] VITALS: BP 121/57; TEMP 97.7; O2SAT 98
[2024-10-03 07:22] VITALS: BP 116/61; TEMP 98.4; O2SAT 100
[2024-10-03 09:07] LABS: HEMATOCRIT 29.7 % (42.0-52.0); HEMOGLOBIN 9.8 g/dl (13.5-17.5); MEAN CORPUSCULAR HEMOGLOBIN 31.3 pg (27.0-33.0); MEAN CORPUSCULAR VOLUME 94.9 fl (80.0-96.0); PLATELET COUNT, AUTOMATED 167 10^3/uL (150-450); RED BLOOD COUNT 3.13 10^6/uL (4.30-6.10); WHITE BLOOD COUNT 3.8 10^3/uL (4.0-10.0)
[2024-10-03 09:19] LABS: INR 1.05; PARTIAL THROMBOPLASTIN TIME 31.7 SECONDS (24.8-34.2)
[2024-10-03 09:39] LABS: ALBUMIN 2.9 G/DL (3.2-5.2); ALKALINE PHOSPHATASE 102 U/L (40-129); ALT/SGPT 48 U/L (7.0-40); AST/SGOT 36 U/L (<34); BILIRUBIN,TOTAL 0.5 MG/DL (0.3-1.2); BLOOD UREA NITROGEN 21 MG/DL (9-23); CALCIUM LEVEL 8.7 MG/DL (8.3-10.6); CARBON DIOXIDE LEVEL 25 MMOL/L (20-31); CHLORIDE LEVEL 108 MMOL/L (98-107); CREATININE FOR GFR 0.92 MG/DL (0.70-1.30); GLOMERULAR FILTRATION RATE > 60.0 (>42); GLUCOSE, FASTING 250 MG/DL (74-106); POTASSIUM SERUM 3.5 MMOL/L (3.5-5.1); SODIUM LEVEL 144 MMOL/L (136-145); TOTAL PROTEIN 6.4 G/DL (5.7-8.2)
[2024-10-03 12:00] VITALS: BP 127/61; TEMP 98.2; O2SAT 99
[2024-10-03 16:00] VITALS: BP 150/67; TEMP 98.2; O2SAT 100
[2024-10-03] MEDS: PANTOPRAZOLE 40MG TAB (PROTONIX) PO SCH (16:52)
[2024-10-03] MEDS: LEVOTHYROXINE 88MCG TABLET (0.088 MG) PO SCH (16:52)
[2024-10-03] MEDS: MAGNESIUM GLUCONATE 500 MG TAB GT SCH (20:30)
[2024-10-03] MEDS: FINASTERIDE 5MG TAB PO SCH (20:30)
[2024-10-03 20:32] VITALS: BP 140/58; TEMP 98.1; O2SAT 98
[2024-10-03] MEDS: METAMUCIL (PSYLLIUM) PACKET PO SCH (21:00)
[2024-10-03 23:09] VITALS: BP 152/67; TEMP 97.7; O2SAT 94
[2024-10-04] VITALS (7 sets, daily range): BP systolic 121–167; BP diastolic 63–73; TEMP 97.2–98.5; O2SAT 96–99
[2024-10-04 07:54] LABS: BASO % 0.5 % (0.0-1.0); EOS # 0.3 10^3/uL (0.0-0.5); EOS % 7.5 % (0.0-3.0); HEMATOCRIT 30.1 % (42.0-52.0); HEMOGLOBIN 9.6 g/dl (13.5-17.5); LYMPH # 0.3 10^3/uL (1.5-5.0); LYMPH % 6.8 % (24.0-44.0); MEAN CORPUSCULAR HEMOGLOBIN 30.7 pg (27.0-33.0); MEAN CORPUSCULAR HGB CONC 31.9 g/dl (32.0-36.5); MEAN CORPUSCULAR VOLUME 96.2 fl (80.0-96.0); MONO # 0.5 10^3/uL (0.0-0.8); MONO % 12.6 % (2.0-8.0); NEUTROPHILS % 72.1 % (36.0-66.0); PLATELET COUNT, AUTOMATED 205 10^3/uL (150-450); RED BLOOD COUNT 3.13 10^6/uL (4.30-6.10); WHITE BLOOD COUNT 4.1 10^3/uL (4.0-10.0)
[2024-10-04 08:26] LABS: BLOOD UREA NITROGEN 11 MG/DL (9-23); CALCIUM LEVEL 8.8 MG/DL (8.3-10.6); CARBON DIOXIDE LEVEL 29 MMOL/L (20-31); CHLORIDE LEVEL 106 MMOL/L (98-107); CREATININE FOR GFR 0.81 MG/DL (0.70-1.30); GLOMERULAR FILTRATION RATE > 60.0 (>42); GLUCOSE, FASTING 119 MG/DL (74-106); POTASSIUM SERUM 3.9 MMOL/L (3.5-5.1); SODIUM LEVEL 144 MMOL/L (136-145)
[2024-10-04] MEDS ORDERED: LIDOCAINE 2% 100MG/5ML SDV (FOR ANES.) As Ordered ONE (10:31)
[2024-10-04] MEDS ORDERED: ROCURONIUM BROMIDE 50MG/5ML VIAL As Ordered ONE (10:31)
[2024-10-04] MEDS ORDERED: propofoL 200 MG/20 ML VIAL As Ordered ONE (10:31)
[2024-10-04] MEDS ORDERED: ONDANSETRON 4MG 2ML VIAL As Ordered ONE (10:31)
[2024-10-04] MEDS ORDERED: fentaNYL 100 MCG/2 ML INJECTION As Ordered ONE (10:32)
[2024-10-04] MEDS: EPINEPHrine 1MG/10ML SYRINGE 1.5IN As Ordered ONE (10:37)
[2024-10-04] MEDS: CETACAINE SPRAY 5GM As Ordered ONE (11:07)
[2024-10-04] MEDS ORDERED: PHENYLephrine 500MCG 5ML (100MCG/ML) SYRINGE As Ordered ONE (11:16)
[2024-10-04] MEDS ORDERED: SUGAMMADEX SODIUM 500 MG/5 ML VIAL (BRIDION) As Ordered ONE (11:35)
[2024-10-04] MEDS ORDERED: KETOROLAC 60MG 2ML VIAL As Ordered ONE (11:36)
[2024-10-04] MEDS ORDERED: ePHEDrine SULFATE 25 MG/5 ML(5MG/ML) SYRINGE As Ordered ONE (11:40)
[2024-10-04] MEDS ORDERED: ONDANSETRON 4MG 2ML VIAL IV PRN (12:05)
[2024-10-04] MEDS ORDERED: HYDROMORPHONE HCL 0.5 MG/ 0.5 ML SYRINGE IV PRN (12:05)
== END 2024-10-04 16:33 | disposition home health service (06) | DRG 204 ==
LOC: M ED 09:06 → EDBD 09:06 → M ED INP 12:08 → M PCU 18:48
PROVIDERS: ADMIT General Practice; ATTEND Student in an Organized Health Care Education/Training Program
PROC: 0BDC8ZX Extraction of Right Upper Lung Lobe, Via Natural or Artificial Opening Endoscopic, Diagnostic (ICD-10-PCS; principal; 2024-10-04 10:30)
DX: R04.2 Hemoptysis (principal); D62 Acute posthemorrhagic anemia; R13.10 Dysphagia, unspecified; I48.91 Unspecified atrial fibrillation; R91.8 Other nonspecific abnormal finding of lung field; R05.8 Other specified cough; R73.9 Hyperglycemia, unspecified; Z79.899 Other long term (current) drug therapy; Z92.3 Personal history of irradiation; Z79.890 Hormone replacement therapy; Z66 Do not resuscitate; Z93.1 Gastrostomy status; Z88.8 Allergy status to other drugs, medicaments and biological substances; Z85.21 Personal history of malignant neoplasm of larynx; Z87.891 Personal history of nicotine dependence

== ENCOUNTER → 2024-10-08 | Outpatient (CLI) | payer MEDICARE | LOC: M ONCR 11:00 | PROVIDERS: ATTEND General Practice | DX: C32.1 Malignant neoplasm of supraglottis (principal); Z87.891 Personal history of nicotine dependence; Z92.21 Personal history of antineoplastic chemotherapy; Z92.3 Personal history of irradiation; Z79.620 Long term (current) use of immunosuppressive biologic; Z72.89 Other problems related to lifestyle; Z88.1 Allergy status to other antibiotic agents; Z79.890 Hormone replacement therapy; Z79.899 Other long term (current) drug therapy ==

== ENCOUNTER → 2024-11-05 | Outpatient (CLI) | payer MEDICARE ==
[~2024-11-05] MED LIST changes: +VANC125C13 PO; -VANC125C3 PO
== END ==
LOC: M PLARAD 11:44
PROVIDERS: ATTEND Nurse Practitioner Women's Health
DX: C32.1 Malignant neoplasm of supraglottis (principal)
CPT/HCPCS: 78815; A9552

== ENCOUNTER → 2024-11-29 | Outpatient (REF) | payer MEDICARE ==
[2024-11-29 14:28] LABS: PERCENT SATURATION 10.8 % (19.7-50.0)
== END ==
LOC: M LAB REF 12:11
PROVIDERS: ATTEND Internal Medicine
DX: D50.9 Iron deficiency anemia, unspecified (principal)

== ENCOUNTER 2024-12-03 12:44 | Inpatient (IN) | payer MEDICARE ==
[~2024-12-03] VITALS: Ht 182.9 cm; Wt 77.7 kg
[~2024-12-03 12:44] MED LIST changes: +TRANEXAMIC ACID 100 MG/ML 10ML VIAL NEB SCH
[2024-12-03 13:24] LABS: BASO % 0.6 % (0.0-1.0); EOS # 0.2 10^3/uL (0.0-0.5); EOS % 4.6 % (0.0-3.0); HEMATOCRIT 35.1 % (42.0-52.0); HEMOGLOBIN 11.8 g/dl (13.5-17.5); LYMPH # 0.5 10^3/uL (1.5-5.0); LYMPH % 9.4 % (24.0-44.0); MEAN CORPUSCULAR HGB CONC 33.6 g/dl (32.0-36.5); MEAN CORPUSCULAR VOLUME 92.1 fl (80.0-96.0); MONO # 0.7 10^3/uL (0.0-0.8); MONO % 12.4 % (2.0-8.0); NEUTROPHILS # 3.8 10^3/uL (1.5-8.5); NEUTROPHILS % 72.6 % (36.0-66.0); PLATELET COUNT, AUTOMATED 201 10^3/uL (150-450); RED BLOOD COUNT 3.81 10^6/uL (4.30-6.10); WHITE BLOOD COUNT 5.2 10^3/uL (4.0-10.0)
[2024-12-03 13:36] LABS: INR 0.95; PARTIAL THROMBOPLASTIN TIME 31.6 SECONDS (24.8-34.2)
[2024-12-03] MEDS: NS 500 ML IV ONE (13:38)
[2024-12-03 13:45] LABS: LIPASE 72 U/L (12-53)
[2024-12-03 13:48] LABS: ALBUMIN 3.6 G/DL (3.2-5.2); ALKALINE PHOSPHATASE 114 U/L (40-129); ALT/SGPT 46 U/L (7.0-40); AST/SGOT 46 U/L (<34); BILIRUBIN,DIRECT 0.1 MG/DL (<0.4); BILIRUBIN,TOTAL 0.5 MG/DL (0.3-1.2); BLOOD UREA NITROGEN 27 MG/DL (9-23); CALCIUM LEVEL 9.1 MG/DL (8.3-10.6); CARBON DIOXIDE LEVEL 28 MMOL/L (20-31); CHLORIDE LEVEL 102 MMOL/L (98-107); CREATININE FOR GFR 0.78 MG/DL (0.70-1.30); GLOMERULAR FILTRATION RATE > 60.0 (>42); GLUCOSE, FASTING 107 MG/DL (74-106); POTASSIUM SERUM 4.7 MMOL/L (3.5-5.1); SODIUM LEVEL 138 MMOL/L (136-145); TOTAL PROTEIN 7.1 G/DL (5.7-8.2)
[2024-12-03] MEDS ORDERED: ISOVUE-370 76% 100ML VIAL As Ordered ONE (13:56)
[2024-12-03] MEDS ORDERED: LEVO100T5 PO (16:52)
[2024-12-03] MEDS ORDERED: HOME MED LIST COMPLETE! XX SCH (16:55)
[2024-12-03] MEDS ORDERED: ACETAMINOPHEN 325 MG TAB PO PRN (17:00)
[2024-12-03] MEDS: DOXYCYCLINE HYCLATE 100MG TABLET PO ONE (17:20)
[2024-12-03] MEDS: cefTRIAXone SOD 1 GM in DEXTROSE 5% (D5W) ADV/MINI-BAG 50 ML IV ONE (17:21)
[2024-12-03] MEDS: TRANEXAMIC ACID 100 MG/ML 10ML VIAL NEB ONE (18:04)
[2024-12-03] MEDS: amLODIPine 5 MG TAB PO ONE (18:53)
[2024-12-03] MEDS: TRANEXAMIC ACID 100 MG/ML 10ML VIAL NEB SCH (20:00)
[2024-12-03] MEDS: DOCUSATE SODIUM 100MG CAPSULE PO SCH (20:35)
[2024-12-03] MEDS: MAGNESIUM GLUCONATE 500 MG TAB GT SCH (20:35)
[2024-12-03] MEDS: DOXYCYCLINE HYCLATE 100MG TABLET PO SCH (20:36)
[2024-12-03] MEDS: DEXTROMETHORPHAN 60MG/10ML SUSP 90ML BTL(DELSYM) PO SCH (20:36)
[2024-12-03] MEDS: FINASTERIDE 5MG TAB PO SCH (20:37)
[2024-12-04 05:34] LABS: BASO % 0.4 % (0.0-1.0); EOS # 0.3 10^3/uL (0.0-0.5); HEMATOCRIT 34.7 % (42.0-52.0); HEMOGLOBIN 11.4 g/dl (13.5-17.5); LYMPH # 0.5 10^3/uL (1.5-5.0); LYMPH % 11.3 % (24.0-44.0); MEAN CORPUSCULAR HEMOGLOBIN 30.6 pg (27.0-33.0); MEAN CORPUSCULAR HGB CONC 32.9 g/dl (32.0-36.5); MEAN CORPUSCULAR VOLUME 93.3 fl (80.0-96.0); MONO # 0.7 10^3/uL (0.0-0.8); MONO % 14.6 % (2.0-8.0); NEUTROPHILS # 3.2 10^3/uL (1.5-8.5); NEUTROPHILS % 67.5 % (36.0-66.0); PLATELET COUNT, AUTOMATED 193 10^3/uL (150-450); RED BLOOD COUNT 3.72 10^6/uL (4.30-6.10); WHITE BLOOD COUNT 4.7 10^3/uL (4.0-10.0)
[2024-12-04 05:50] LABS: BLOOD UREA NITROGEN 24 MG/DL (9-23); CALCIUM LEVEL 9.2 MG/DL (8.3-10.6); CARBON DIOXIDE LEVEL 29 MMOL/L (20-31); CHLORIDE LEVEL 106 MMOL/L (98-107); CREATININE FOR GFR 0.81 MG/DL (0.70-1.30); GLOMERULAR FILTRATION RATE > 60.0 (>42); GLUCOSE, FASTING 101 MG/DL (74-106); POTASSIUM SERUM 4.2 MMOL/L (3.5-5.1); SODIUM LEVEL 142 MMOL/L (136-145)
[2024-12-04] MEDS: LEVOTHYROXINE 100MCG TABLET (0.1MG) PO SCH (05:57)
[2024-12-04] MEDS: PANTOPRAZOLE 40MG TAB (PROTONIX) PO SCH (08:05)
[2024-12-04] MEDS: amLODIPine 5 MG TAB PO SCH (08:07)
[2024-12-04] MEDS: cefTRIAXone SOD 1 GM in DEXTROSE 5% (D5W) ADV/MINI-BAG 50 ML IV SCH (18:33)
[2024-12-04 21:20] VITALS: BP 150/72; TEMP 97.7; O2SAT 98
[2024-12-05 00:48] VITALS: BP 141/66; TEMP 97.7; O2SAT 94
[2024-12-05 04:46] VITALS: BP 122/66; TEMP 97.7; O2SAT 95
[2024-12-05 04:46] LABS: BASO % 0.4 % (0.0-1.0); EOS # 0.3 10^3/uL (0.0-0.5); EOS % 5.2 % (0.0-3.0); HEMATOCRIT 32.8 % (42.0-52.0); LYMPH # 0.5 10^3/uL (1.5-5.0); LYMPH % 11.3 % (24.0-44.0); MEAN CORPUSCULAR HEMOGLOBIN 30.8 pg (27.0-33.0); MEAN CORPUSCULAR HGB CONC 33.5 g/dl (32.0-36.5); MEAN CORPUSCULAR VOLUME 91.9 fl (80.0-96.0); MONO # 0.7 10^3/uL (0.0-0.8); MONO % 15.1 % (2.0-8.0); NEUTROPHILS # 3.2 10^3/uL (1.5-8.5); NEUTROPHILS % 67.8 % (36.0-66.0); PLATELET COUNT, AUTOMATED 196 10^3/uL (150-450); RED BLOOD COUNT 3.57 10^6/uL (4.30-6.10); WHITE BLOOD COUNT 4.8 10^3/uL (4.0-10.0)
[2024-12-05 04:50] LABS: BLOOD UREA NITROGEN 19 MG/DL (9-23); CALCIUM LEVEL 8.5 MG/DL (8.3-10.6); CARBON DIOXIDE LEVEL 26 MMOL/L (20-31); CHLORIDE LEVEL 106 MMOL/L (98-107); CREATININE FOR GFR 0.79 MG/DL (0.70-1.30); GLOMERULAR FILTRATION RATE > 90.0 (>42); GLUCOSE, FASTING 108 MG/DL (74-106); POTASSIUM SERUM 4.1 MMOL/L (3.5-5.1); SODIUM LEVEL 140 MMOL/L (136-145)
[2024-12-05] MEDS: diphenhydrAMINE CREAM 30GM TOP PRN (05:33)
[2024-12-05 08:00] VITALS: BP 123/65; TEMP 97.5; O2SAT 97
[2024-12-05 08:55] VITALS: BP 123/65
[2024-12-05] MEDS: CETIRIZINE (ZyrTEC) 10 MG TAB PO SCH (08:55)
[2024-12-05 12:00] VITALS: BP 125/65; TEMP 97.5; O2SAT 99
[2024-12-05] MEDS ORDERED: TUSS15SY2 PO (12:15)
[2024-12-05] MEDS ORDERED: CETI10TA PO (12:15)
[2024-12-05] MEDS ORDERED: CEFD1CAP9 PO (12:15)
[2024-12-05] MEDS ORDERED: AMLO1TAB24 PO (12:15)
== END 2024-12-05 13:09 | disposition home health service (06) | DRG 204 ==
LOC: EDBD 12:44 → M ED 12:44 → M ED INP 16:58 → M MSPAV 12-04 21:18
PROVIDERS: ADMIT Internal Medicine Nephrology; ATTEND Internal Medicine Nephrology
DX: R04.2 Hemoptysis (principal); J18.9 Pneumonia, unspecified organism; R13.10 Dysphagia, unspecified; C32.1 Malignant neoplasm of supraglottis; I48.91 Unspecified atrial fibrillation; D64.9 Anemia, unspecified; N40.1 Benign prostatic hyperplasia with lower urinary tract symptoms; R33.9 Retention of urine, unspecified; E78.5 Hyperlipidemia, unspecified; G62.9 Polyneuropathy, unspecified; I10 Essential (primary) hypertension; I95.1 Orthostatic hypotension; B96.1 Klebsiella pneumoniae [K. pneumoniae] as the cause of diseases classified elsewhere; Z66 Do not resuscitate; Z93.1 Gastrostomy status; Z79.82 Long term (current) use of aspirin; Z79.890 Hormone replacement therapy; Z79.899 Other long term (current) drug therapy; Z88.0 Allergy status to penicillin; Z88.1 Allergy status to other antibiotic agents; Z87.891 Personal history of nicotine dependence

== ENCOUNTER 2024-12-18 09:14 | Day surgery (SDC) | payer MEDICARE ==
[~2024-12-18] VITALS: Ht 182.9 cm; Wt 76.8 kg
[~2024-12-18 09:14] MED LIST changes: +AMLO1TAB24 PO; +CEFD1CAP9 PO; +CETI10TA PO; +FERR300L12 PEG; +FERR300L12 PO; -FERR5MLUD PEG; -FERR5MLUD PO; -FLOM0.4C39 PO; +LEVO100T5 PO; +TAMS-18 PO; -TRANEXAMIC ACID 100 MG/ML 10ML VIAL NEB SCH; +TUSS15SY2 PO
[2024-12-18] MEDS ORDERED: ERBI200I IV (10:42)
[2024-12-18] MEDS ORDERED: propofoL 200 MG/20 ML VIAL As Ordered ONE (11:46)
[2024-12-18] MEDS ORDERED: ROCURONIUM BROMIDE 50MG/5ML VIAL As Ordered ONE (11:46)
[2024-12-18] MEDS ORDERED: ACETAMINOPHEN 1000MG/100ML IV BAG As Ordered ONE (11:46)
[2024-12-18] MEDS ORDERED: fentaNYL 100 MCG/2 ML INJECTION As Ordered ONE (11:46)
[2024-12-18] MEDS ORDERED: LIDOCAINE 2% 100MG/5ML SDV (FOR ANES.) As Ordered ONE (11:46)
[2024-12-18] MEDS ORDERED: ONDANSETRON 4MG 2ML VIAL As Ordered ONE (11:46)
[2024-12-18] MEDS ORDERED: SUGAMMADEX SODIUM 500 MG/5 ML VIAL (BRIDION) As Ordered ONE (11:49)
[2024-12-18] MEDS: CETACAINE SPRAY 5GM As Ordered ONE (12:20)
[2024-12-18] MEDS: EPINEPHrine 1MG/10ML SYRINGE 1.5IN As Ordered ONE (12:25)
[2024-12-18] MEDS ORDERED: METOCLOPRAMIDE INJ 10MG/2ML VIAL IV PRN (12:45)
[2024-12-18] MEDS ORDERED: MEPERIDINE 25 MG/ML 1ML VIAL IV PRN (12:45)
[2024-12-18] MEDS ORDERED: ONDANSETRON 4MG 2ML VIAL IV PRN (12:45)
[2024-12-18] MEDS ORDERED: diphenhydrAMINE 50MG/ML VIAL IV PRN (12:45)
[2024-12-18] MEDS ORDERED: fentaNYL 100 MCG/2 ML INJECTION IV PRN (12:45)
[2024-12-18] MEDS ORDERED: LR 1,000 ML IV SCH (12:45)
[2024-12-18 14:18] VITALS: BP 158/70; TEMP 97.2; O2SAT 98
[2024-12-25] MEDS ORDERED: BACTDSTA (10:23)
== END 2024-12-18 14:28 | disposition home or self-care (01) ==
LOC: M SDC 09:14
PROVIDERS: ATTEND Internal Medicine Pulmonary Disease
DX: J92.9 Pleural plaque without asbestos (principal); A49.8 Other bacterial infections of unspecified site; I48.91 Unspecified atrial fibrillation; Z88.0 Allergy status to penicillin; Z88.1 Allergy status to other antibiotic agents; Z79.899 Other long term (current) drug therapy
CPT/HCPCS: 31622; 87070; 87077; 87102; 87116; 87186; 87205; 87206; J0131; J2405; J3010

== ENCOUNTER → 2025-01-06 | Outpatient (CLI) | payer MEDICARE ==
[~2025-01-06] MED LIST changes: +BACTDSTA; +ERBI200I IV; +ISOVUE-370 76% 100ML VIAL As Ordered ONE
== END ==
LOC: M RAD 10:21
PROVIDERS: ATTEND Nurse Practitioner Women's Health
DX: C32.9 Malignant neoplasm of larynx, unspecified (principal)
CPT/HCPCS: 70491; 71260; 74177; Q9967

== ENCOUNTER → 2025-01-07 | Outpatient (CLI) | payer MEDICARE ==
[~2025-01-07] MED LIST changes: -ISOVUE-370 76% 100ML VIAL As Ordered ONE
== END ==
LOC: M ONCR 10:38
PROVIDERS: ATTEND General Practice
DX: Z08 Encounter for follow-up examination after completed treatment for malignant neoplasm (principal); Z85.21 Personal history of malignant neoplasm of larynx; Z87.891 Personal history of nicotine dependence; Z92.21 Personal history of antineoplastic chemotherapy; Z92.3 Personal history of irradiation; Z72.89 Other problems related to lifestyle; Z88.0 Allergy status to penicillin; Z88.1 Allergy status to other antibiotic agents; Z79.620 Long term (current) use of immunosuppressive biologic; Z79.890 Hormone replacement therapy; Z79.899 Other long term (current) drug therapy
CPT/HCPCS: 31575; G0463

== ENCOUNTER → 2025-01-30 | Outpatient (CLI) | payer MEDICARE ==
[~2025-01-30] MED LIST changes: -AMIO200T49 PO; +AMIO200T54 PO
== END ==
LOC: M EKG 13:24
PROVIDERS: ATTEND Internal Medicine Cardiovascular Disease
DX: I48.0 Paroxysmal atrial fibrillation (principal); I44.0 Atrioventricular block, first degree

== ENCOUNTER → 2025-02-25 | Outpatient (CLI) | payer MEDICARE ==
[~2025-02-25] VITALS: Ht 182.9 cm; Wt 75.5 kg
[2025-02-25 09:08] VITALS: TEMP 98.3
[2025-02-25] MEDS: ceFAZolin SODIUM 2 GM in DEXTROSE 5% (D5W) ADV/MINI-BAG 50 ML IV ONE (09:33)
[2025-02-25] MEDS: NS (Normal Saline) 0.9% 1,000 ML IV SCH (09:34)
[2025-02-25] MEDS: MIDAZOLAM INJ 2 MG/2 ML VIAL IV PRN (10:14)
[2025-02-25] MEDS: LIDOCAINE 1% MDV 20 ML VIAL SC SCH (10:32)
[2025-02-25 11:15] VITALS: BP 173/83; O2SAT 98
== END ==
LOC: M IRPRO 08:58
PROVIDERS: ATTEND Specialist
DX: C32.1 Malignant neoplasm of supraglottis (principal)
CPT/HCPCS: 36561; 99152; 99153; J0690; J1642; J2250; J3010

== ENCOUNTER → 2025-04-08 | Outpatient (CLI) | payer MEDICARE | LOC: M PLAIMG 08:23 | PROVIDERS: ATTEND Internal Medicine Cardiovascular Disease | DX: R01.1 Cardiac murmur, unspecified (principal); R94.31 Abnormal electrocardiogram [ECG] [EKG] ==

== ENCOUNTER → 2025-04-25 | Outpatient (CLI) | payer MEDICARE ==
[~2025-04-25] MED LIST changes: -PROP225T PO; +PROP225T4 PO
== END ==
LOC: M RAD 13:44
PROVIDERS: ATTEND Internal Medicine Pulmonary Disease
DX: R91.8 Other nonspecific abnormal finding of lung field (principal)

== ENCOUNTER → 2025-05-02 | Outpatient (CLI) | payer MEDICARE ==
[~2025-05-02] MED LIST changes: +DOXY100T PO; +TRAM50TA2 PO
== END ==
LOC: M ONCR 13:20
PROVIDERS: ATTEND General Practice
DX: C79.51 Secondary malignant neoplasm of bone (principal); Z92.3 Personal history of irradiation

== ENCOUNTER → 2025-05-07 | Outpatient (CLI) | payer MEDICARE ==
[~2025-05-07] MED LIST changes: +PROHANCE 279.3MG/ML 15ML VIAL As Ordered ONE
== END ==
LOC: M RAD 16:23
PROVIDERS: ATTEND General Practice
DX: C79.51 Secondary malignant neoplasm of bone (principal)
CPT/HCPCS: 72156; A9576

== ENCOUNTER → 2025-05-16 | Outpatient (CLI) | payer MEDICARE ==
[~2025-05-16] MED LIST changes: -PROHANCE 279.3MG/ML 15ML VIAL As Ordered ONE
== END ==
LOC: M RAD 14:18
PROVIDERS: ATTEND Neurological Surgery
DX: C79.51 Secondary malignant neoplasm of bone (principal); M50.30 Other cervical disc degeneration, unspecified cervical region

== ENCOUNTER → 2025-05-29 | Outpatient (REF) | payer MEDICARE | LOC: M LAB REF 13:47 | PROVIDERS: ATTEND Physician Assistant | DX: I48.0 Paroxysmal atrial fibrillation (principal) ==

== ENCOUNTER → 2025-06-03 | Outpatient (CLI) | payer MEDICARE ==
[~2025-06-03] MED LIST changes: +ACET-907 PO; +DILA2TAB6 PO
== END ==
LOC: M ONCR 12:42
PROVIDERS: ATTEND General Practice
DX: C32.1 Malignant neoplasm of supraglottis (principal); Z79.891 Long term (current) use of opiate analgesic

== ENCOUNTER → 2025-06-11 | Outpatient (CLI) | payer MEDICARE ==
[~2025-06-11] VITALS: Ht 182.9 cm; Wt 78.2 kg
[~2025-06-11] MED LIST changes: +LISI10TA22 PO; -MAGN50TA GT; +MAGN50TA PEG; +METH-1164 PEG; +METH-1164 PO; +MORP20SO PO; -RA B1TAB2 GT; +RA B1TAB2 PEG
[2025-06-11 13:48] VITALS: BP 180/86; O2SAT 97
== END ==
LOC: M PAL 12:32
PROVIDERS: ATTEND Physician Assistant
DX: Z51.5 Encounter for palliative care (principal); C32.1 Malignant neoplasm of supraglottis; Z66 Do not resuscitate; R52 Pain, unspecified; R11.0 Nausea; K59.00 Constipation, unspecified; Z93.1 Gastrostomy status; Z79.891 Long term (current) use of opiate analgesic; Z79.620 Long term (current) use of immunosuppressive biologic; Z79.2 Long term (current) use of antibiotics; Z79.899 Other long term (current) drug therapy; Z88.0 Allergy status to penicillin; Z88.8 Allergy status to other drugs, medicaments and biological substances

== ENCOUNTER → 2025-06-16 | Outpatient (CLI) | payer MEDICARE ==
[~2025-06-16] MED LIST changes: +PROHANCE 279.3MG/ML 15ML VIAL ONE
== END ==
LOC: M PLAIMG 10:36
PROVIDERS: ATTEND Neurological Surgery
DX: C79.51 Secondary malignant neoplasm of bone (principal)
CPT/HCPCS: 72157; 72158; A9576

== ENCOUNTER 2025-06-19 08:24 | Day surgery (SDC) | payer MEDICARE ==
[~2025-06-19] VITALS: Ht 182.9 cm; Wt 76.4 kg
[~2025-06-19 08:24] MED LIST changes: +LIDOCAINE 2% 100 MG/5 ML SDV (FOR ANES.) As Ordered ONE; +ONDANSETRON 4MG/2ML VIAL As Ordered ONE; -PROHANCE 279.3MG/ML 15ML VIAL ONE; +dexAMETHasone 4 MG/ML 1 ML VIAL As Ordered ONE
[2025-06-19] MEDS: LR 1,000 ML IV SCH (09:00)
[2025-06-19] MEDS ORDERED: MIDAZOLAM INJ 2 MG/2 ML VIAL As Ordered ONE (09:01)
[2025-06-19] MEDS ORDERED: CIPR500T39 PO (09:54)
[2025-06-19] MEDS: ceFAZolin SOD 2 GM IV ONCE IV ONE (10:33)
[2025-06-19] MEDS ORDERED: ACETAMINOPHEN 1000MG/100ML IV BAG As Ordered ONE (10:37)
[2025-06-19] MEDS: LIDOCAINE 1% MDV 20 ML VIAL As Ordered ONE (10:46)
[2025-06-19 12:10] VITALS: BP 187/76; TEMP 97.5; O2SAT 97
== END 2025-06-19 12:18 | disposition home or self-care (01) ==
LOC: M SDC 08:24
PROVIDERS: ATTEND Internal Medicine Cardiovascular Disease
DX: I48.0 Paroxysmal atrial fibrillation (principal); I25.10 Atherosclerotic heart disease of native coronary artery without angina pectoris; I11.0 Hypertensive heart disease with heart failure; Z88.0 Allergy status to penicillin; Z88.8 Allergy status to other drugs, medicaments and biological substances; Z79.899 Other long term (current) drug therapy
CPT/HCPCS: 33285; C1764; J0131; J0688; J1100; J2250; J2405; J3010

== ENCOUNTER 2025-06-22 11:16 | Emergency (ER) | payer MEDICARE ==
[~2025-06-22] VITALS: Ht 182.9 cm; Wt 75.9 kg
[~2025-06-22 11:16] MED LIST changes: +CIPR500T39 PO; -LIDOCAINE 2% 100 MG/5 ML SDV (FOR ANES.) As Ordered ONE; -ONDANSETRON 4MG/2ML VIAL As Ordered ONE; -dexAMETHasone 4 MG/ML 1 ML VIAL As Ordered ONE
[2025-06-22 12:08] LABS: BASO # 0.0 10^3/uL (0.0-0.2); BASO % 0.1 % (0.0-1.0); EOS # 0.1 10^3/uL (0.0-0.5); EOS % 0.6 % (0.0-3.0); LYMPH # 0.4 10^3/uL (1.5-5.0); LYMPH % 2.6 % (24.0-44.0); MONO # 0.5 10^3/uL (0.0-0.8); MONO % 3.2 % (2.0-8.0); NEUTROPHILS # 13.7 10^3/uL (1.5-8.5); NEUTROPHILS % 93.1 % (36.0-66.0); PLATELET COUNT, AUTOMATED 290 10^3/uL (150-450)
[2025-06-22 12:39] LABS: ALT/SGPT 36 U/L (7.0-40); AST/SGOT 30 U/L (<34); CALCIUM LEVEL 9.0 MG/DL (8.3-10.6); CARBON DIOXIDE LEVEL 28 MMOL/L (20-31); CHLORIDE LEVEL 97 MMOL/L (98-107); CREATININE FOR GFR 0.84 MG/DL (0.70-1.30); GLOMERULAR FILTRATION RATE > 90.0 (>42); POTASSIUM SERUM 4.5 MMOL/L (3.5-5.1); SODIUM LEVEL 134 MMOL/L (136-145)
[2025-06-22] MEDS ORDERED: ISOVUE-370 76% 100 ML VIAL As Ordered ONE (12:58)
[2025-06-22] MEDS: IPRATROPIUM 0.5 MG/ALBUTEROL 2.5 MG INH SOL UD 3 ML NEB ONE (14:00)
[2025-06-22] MEDS ORDERED: LEVO1TAB40 PO (15:14)
[2025-06-22] MEDS ORDERED: PRED20TA PO (15:14)
[2025-06-22 15:16] VITALS: O2SAT 99
[2025-06-22 15:40] VITALS: BP 174/75; TEMP 99.7
[2025-06-25] MEDS ORDERED: SENN-186 PO (07:51)
[2025-06-25] MEDS ORDERED: MIRA3350 PO (07:53)
[2025-06-25] MEDS ORDERED: META0.52 PO (07:54)
== END 2025-06-22 16:06 | disposition home or self-care (01) ==
LOC: EDBD 11:16 → M ED 11:16
DX: J18.9 Pneumonia, unspecified organism (principal); J45.909 Unspecified asthma, uncomplicated; I48.91 Unspecified atrial fibrillation; N40.0 Benign prostatic hyperplasia without lower urinary tract symptoms; E78.5 Hyperlipidemia, unspecified; F17.210 Nicotine dependence, cigarettes, uncomplicated; Z88.0 Allergy status to penicillin; Z88.8 Allergy status to other drugs, medicaments and biological substances; Z79.52 Long term (current) use of systemic steroids; Z79.899 Other long term (current) drug therapy
CPT/HCPCS: 71045; 71275; 80047; 80048; 80076; 83605; 83880; 84145; 85025; 87040; 87070; 87077; 87186; 87205; 87486; 87581; 87633; 87798; 93005; 93041; 94640; 94760; 96374; 99285; J2919; Q9967

== ENCOUNTER → 2025-06-26 | Outpatient (CLI) | payer MEDICARE ==
[~2025-06-26] VITALS: Ht 182.9 cm; Wt 75.6 kg
[~2025-06-26] MED LIST changes: +MAGN500T6 PEG; +META0.52 PO; +MIRA3350 PO; +PRED20TA PO; +SENN-186 PO
[2025-06-26 10:11] VITALS: BP 128/76; O2SAT 95
== END ==
LOC: M PAL 09:49
PROVIDERS: ATTEND Physician Assistant
DX: Z51.5 Encounter for palliative care (principal); Z66 Do not resuscitate; C32.1 Malignant neoplasm of supraglottis; M41.00 Infantile idiopathic scoliosis, site unspecified; C32.8 Malignant neoplasm of overlapping sites of larynx; Z79.891 Long term (current) use of opiate analgesic; Z88.1 Allergy status to other antibiotic agents; Z88.0 Allergy status to penicillin; Z88.6 Allergy status to analgesic agent; Z79.899 Other long term (current) drug therapy; Z79.83 Long term (current) use of bisphosphonates

== ENCOUNTER 2025-06-28 17:35 | Inpatient (IN) | payer MEDICARE ==
[~2025-06-28] VITALS: Ht 182.9 cm; Wt 80.1 kg
[~2025-06-28 17:35] MED LIST changes: -MAGN500T6 PEG
[2025-06-28 18:27] LABS: BASO # 0.0 10^3/uL (0.0-0.2); BASO % 0.1 % (0.0-1.0); EOS # 0.0 10^3/uL (0.0-0.5); EOS % 0.0 % (0.0-3.0); LYMPH # 0.2 10^3/uL (1.5-5.0); LYMPH % 2.4 % (24.0-44.0); MONO # 0.5 10^3/uL (0.0-0.8); MONO % 5.2 % (2.0-8.0); NEUTROPHILS # 8.8 10^3/uL (1.5-8.5); NEUTROPHILS % 91.9 % (36.0-66.0); PLATELET COUNT, AUTOMATED 251 10^3/uL (150-450)
[2025-06-28] MEDS ORDERED: ISOVUE-370 76% 100 ML VIAL As Ordered ONE (18:53)
[2025-06-28] MEDS: NS (Normal Saline) 0.9% 1,000 ML IV ONE (18:57)
[2025-06-28] MEDS: IPRATROPIUM 0.5 MG/ALBUTEROL 2.5 MG INH SOL UD 3 ML NEB ONE (19:22)
[2025-06-28] MEDS: ACETAMINOPHEN *IV* 1,000 MG in IV 1 EA IV ONE (19:58)
[2025-06-28 20:21] LABS: ALT/SGPT 60 U/L (7.0-40); AST/SGOT 33 U/L (<34); CALCIUM LEVEL 8.0 MG/DL (8.3-10.6); CARBON DIOXIDE LEVEL 26 MMOL/L (20-31); CHLORIDE LEVEL 97 MMOL/L (98-107); CK-MB VALUE MASS < 1.0 NG/ML (<3.6); CPK CREATINE PHOSPHOKINASE 17 U/L (46-171); CREATININE FOR GFR 1.02 MG/DL (0.70-1.30); GLOMERULAR FILTRATION RATE 77.1 (>42); MAGNESIUM LEVEL 1.7 MG/DL (1.8-2.4); POTASSIUM SERUM 4.5 MMOL/L (3.5-5.1); SODIUM LEVEL 132 MMOL/L (136-145)
[2025-06-28 21:07] LABS: CK-MB VALUE MASS < 1.0 NG/ML (<3.6); CPK CREATINE PHOSPHOKINASE 25 U/L (46-171)
[2025-06-28 23:45] LABS: KETONE, URINE AUTO RFX NEGATIVE (NEGATIVE); LEUKOCYTE ESTERASE UR AUTO RFX NEGATIVE (NEGATIVE); MUCUS, URINE RFX SMALL (NEGATIVE); NITRITE, URINE AUTO RFX NEGATIVE (NEGATIVE); RBC, URINE AUTO RFX 1 /HPF (0-3); SQUAM EPITHELIAL CELL UR AURFX 0 /HPF (0-6); WBC, URINE AUTO RFX 2 /HPF (0-3)
[2025-06-29] VITALS (11 sets, daily range): BP systolic 162–199; BP diastolic 67–85; TEMP 97.9–99; O2SAT 94–99
[2025-06-29] MEDS: MORPHINE 4 MG/ML 1 ML VIAL IV PRN (00:10)
[2025-06-29] MEDS: LevoFLOXacin IV 750 MG in IV 1 EA IV ONE (00:14)
[2025-06-29] MEDS ORDERED: MAALOX 30 ML SUSP *UDC PO PRN (00:55)
[2025-06-29] MEDS ORDERED: MOM 30 ML SUSPENSION UDC PO PRN (00:55)
[2025-06-29] MEDS: NS (Normal Saline) 0.9% 1,000 ML IV ONE (01:55)
[2025-06-29] MEDS ORDERED: MAGN500T6 PEG (03:18)
[2025-06-29] MEDS ORDERED: HOME MED LIST COMPLETE! XX SCH (03:20)
[2025-06-29] MEDS: MAG SULF 1GM/100ML (MAG RUN) 1 GM in IV 1 EA IV ONE (03:23)
[2025-06-29] MEDS: LABETALOL 100 MG/20 ML VIAL IV ONE (03:29)
[2025-06-29] MEDS: CALCIUM GLUCONATE 1,000 MG in DEXTROSE 5% (D5W) MINI-BAG PLU 100 ML IV ONE (04:27)
[2025-06-29] MEDS ORDERED: ONDANSETRON 4MG ORAL DISINTEGRATING TAB PO PRN (04:45)
[2025-06-29] MEDS: MORPHINE SULFATE ORAL SOLN 10 MG/5 ML PO PRN (04:57)
[2025-06-29] MEDS ORDERED: PANTOPRAZOLE 40MG TAB PO SCH (09:00)
[2025-06-29] MEDS: DOCUSATE SODIUM 100 MG CAPSULE PO SCH (09:00)
[2025-06-29] MEDS: SENNA 8.6 MG TAB PO SCH (09:00)
[2025-06-29] MEDS ORDERED: VANCOMYCIN HCL 1,000 MG, VIAL MATE ADAPTER 1 EACH in NS 250 ML IV SCH (09:20)
[2025-06-29 09:44] LABS: PLATELET COUNT, AUTOMATED 240 10^3/uL (150-450)
[2025-06-29 10:09] LABS: CALCIUM LEVEL 8.4 MG/DL (8.3-10.6); CARBON DIOXIDE LEVEL 27 MMOL/L (20-31); CHLORIDE LEVEL 99 MMOL/L (98-107); CREATININE FOR GFR 0.82 MG/DL (0.70-1.30); GLOMERULAR FILTRATION RATE > 90.0 (>42); MAGNESIUM LEVEL 1.8 MG/DL (1.8-2.4); POTASSIUM SERUM 4.3 MMOL/L (3.5-5.1); SODIUM LEVEL 133 MMOL/L (136-145)
[2025-06-29] MEDS: MAGNESIUM GLUCONATE 500 MG TAB PEG SCH ×2 (11:05→21:22)
[2025-06-29] MEDS: METAMUCIL PACKET PO SCH (11:05)
[2025-06-29] MEDS: HEPARIN SOD 5000 UNITS/ML 1 ML VIAL/SYRINGE SC SCH (11:05)
[2025-06-29] MEDS: PANTOPRAZOLE 40MG VIAL IV SCH (11:05)
[2025-06-29] MEDS: metroNIDAZOLE 500 MG in IV 1 EA IV SCH (13:00)
[2025-06-29] MEDS: CEFEPIME HCL 2 GM in DEXTROSE 5% (D5W) ADV/MINI-BAG 50 ML IV SCH (16:52)
[2025-06-29] MEDS: MIRALAX *UNIT DOSE* 17 GM PACKET PO SCH (21:22)
[2025-06-29] MEDS: FINASTERIDE 5 MG TAB PO SCH (21:22)
[2025-06-30] VITALS (31 sets, daily range): BP systolic 153–180; BP diastolic 58–77; TEMP 97–98.5; O2SAT 88–98
[2025-06-30] MEDS ORDERED: LevoFLOXacin IV 750 MG in IV 1 EA IV SCH
[2025-06-30 05:50] LABS: BASO # 0.0 10^3/uL (0.0-0.2); BASO % 0.3 % (0.0-1.0); EOS # 0.1 10^3/uL (0.0-0.5); EOS % 0.7 % (0.0-3.0); LYMPH # 0.2 10^3/uL (1.5-5.0); LYMPH % 1.8 % (24.0-44.0); MONO # 0.3 10^3/uL (0.0-0.8); MONO % 2.9 % (2.0-8.0); NEUTROPHILS # 10.6 10^3/uL (1.5-8.5); NEUTROPHILS % 93.2 % (36.0-66.0); PLATELET COUNT, AUTOMATED 233 10^3/uL (150-450)
[2025-06-30 06:26] LABS: CALCIUM LEVEL 8.0 MG/DL (8.3-10.6); CARBON DIOXIDE LEVEL 27 MMOL/L (20-31); CHLORIDE LEVEL 100 MMOL/L (98-107); CREATININE FOR GFR 0.80 MG/DL (0.70-1.30); GLOMERULAR FILTRATION RATE > 90.0 (>42); POTASSIUM SERUM 4.2 MMOL/L (3.5-5.1); SODIUM LEVEL 135 MMOL/L (136-145)
[2025-06-30] MEDS ORDERED: SODIUM CHLORIDE NASAL 0.65% SPRAY BTL (OCEAN) PRN (08:40)
[2025-06-30] MEDS: DOCUSATE SOD LIQ 100 MG/10 ML UDC PEG SCH (09:23)
[2025-06-30] MEDS: ACETAMINOPHEN 325 MG TAB PO PRN (21:29)
[2025-07-01] VITALS (28 sets, daily range): BP systolic 127–163; BP diastolic 56–77; TEMP 97.8–103.3; O2SAT 85–98
[2025-07-01 05:46] LABS: BASO # 0.1 10^3/uL (0.0-0.2); BASO % 1.3 % (0.0-1.0); EOS # 0.1 10^3/uL (0.0-0.5); EOS % 1.7 % (0.0-3.0); LYMPH # 0.3 10^3/uL (1.5-5.0); LYMPH % 3.4 % (24.0-44.0); MONO # 0.5 10^3/uL (0.0-0.8); MONO % 5.8 % (2.0-8.0); NEUTROPHILS # 6.9 10^3/uL (1.5-8.5); NEUTROPHILS % 83.1 % (36.0-66.0); PLATELET COUNT, AUTOMATED 226 10^3/uL (150-450)
[2025-07-01 06:17] LABS: CALCIUM LEVEL 8.2 MG/DL (8.3-10.6); CARBON DIOXIDE LEVEL 27 MMOL/L (20-31); CHLORIDE LEVEL 99 MMOL/L (98-107); CREATININE FOR GFR 0.81 MG/DL (0.70-1.30); GLOMERULAR FILTRATION RATE > 90.0 (>42); POTASSIUM SERUM 3.9 MMOL/L (3.5-5.1); SODIUM LEVEL 136 MMOL/L (136-145)
[2025-07-01] MEDS ORDERED: ONDANSETRON 4MG/2ML VIAL IV PRN (08:50)
[2025-07-01] MEDS ORDERED: IBUPROFEN 100 MG 5 ML SUSP UDC DYE FREE PEG PRN (10:00)
[2025-07-02] VITALS (36 sets, daily range): BP systolic 110–178; BP diastolic 58–80; TEMP 98.1–101.2; O2SAT 84–99
[2025-07-02 05:35] LABS: BASO # 0.0 10^3/uL (0.0-0.2); BASO % 0.3 % (0.0-1.0); EOS # 0.1 10^3/uL (0.0-0.5); EOS % 1.5 % (0.0-3.0); LYMPH # 0.2 10^3/uL (1.5-5.0); LYMPH % 3.0 % (24.0-44.0); MONO # 0.6 10^3/uL (0.0-0.8); MONO % 8.1 % (2.0-8.0); NEUTROPHILS # 6.2 10^3/uL (1.5-8.5); NEUTROPHILS % 85.6 % (36.0-66.0); PLATELET COUNT, AUTOMATED 270 10^3/uL (150-450)
[2025-07-02 06:02] LABS: CALCIUM LEVEL 8.2 MG/DL (8.3-10.6); CARBON DIOXIDE LEVEL 28 MMOL/L (20-31); CHLORIDE LEVEL 99 MMOL/L (98-107); CREATININE FOR GFR 0.74 MG/DL (0.70-1.30); GLOMERULAR FILTRATION RATE > 90.0 (>42); POTASSIUM SERUM 4.2 MMOL/L (3.5-5.1); SODIUM LEVEL 137 MMOL/L (136-145)
[2025-07-02] MEDS ORDERED: SALIVA SUBSTITUTE BTL MT PRN (11:10)
[2025-07-02] MEDS: LEVOTHYROXINE 100 MCG TABLET (0.1 MG) PO SCH (12:28)
[2025-07-02] MEDS: SODIUM CHLORIDE HYPERTONIC 3% 4ML NEB SOL INH SCH (15:21)
[2025-07-02] MEDS: ALBUTEROL SULFATE 2.5 MG/0.5 ML INH CONCENTRATE NEB SOLN NEB SCH (15:21)
[2025-07-03] VITALS (28 sets, daily range): BP systolic 126–158; BP diastolic 58–72; TEMP 97.5–100.9; O2SAT 92–99
[2025-07-03 05:58] LABS: BASO # 0.0 10^3/uL (0.0-0.2); BASO % 0.0 % (0.0-1.0); EOS # 0.2 10^3/uL (0.0-0.5); EOS % 2.4 % (0.0-3.0); LYMPH # 0.3 10^3/uL (1.5-5.0); LYMPH % 4.8 % (24.0-44.0); MONO # 0.6 10^3/uL (0.0-0.8); MONO % 8.9 % (2.0-8.0); NEUTROPHILS # 5.1 10^3/uL (1.5-8.5); NEUTROPHILS % 82.8 % (36.0-66.0); PLATELET COUNT, AUTOMATED 244 10^3/uL (150-450)
[2025-07-03 06:30] LABS: CALCIUM LEVEL 8.0 MG/DL (8.3-10.6); CARBON DIOXIDE LEVEL 28 MMOL/L (20-31); CHLORIDE LEVEL 102 MMOL/L (98-107); CREATININE FOR GFR 0.78 MG/DL (0.70-1.30); GLOMERULAR FILTRATION RATE > 90.0 (>42); POTASSIUM SERUM 4.0 MMOL/L (3.5-5.1); SODIUM LEVEL 138 MMOL/L (136-145)
[2025-07-04] VITALS (31 sets, daily range): BP systolic 118–142; BP diastolic 58–70; TEMP 97.6–98.5; O2SAT 93–100
[2025-07-04 06:05] LABS: BASO # 0.0 10^3/uL (0.0-0.2); BASO % 0.3 % (0.0-1.0); EOS # 0.1 10^3/uL (0.0-0.5); EOS % 1.4 % (0.0-3.0); LYMPH # 0.4 10^3/uL (1.5-5.0); LYMPH % 5.6 % (24.0-44.0); MONO # 0.8 10^3/uL (0.0-0.8); MONO % 11.6 % (2.0-8.0); NEUTROPHILS # 5.6 10^3/uL (1.5-8.5); NEUTROPHILS % 80.1 % (36.0-66.0); PLATELET COUNT, AUTOMATED 293 10^3/uL (150-450)
[2025-07-04 06:27] LABS: CALCIUM LEVEL 8.0 MG/DL (8.3-10.6); CARBON DIOXIDE LEVEL 29 MMOL/L (20-31); CHLORIDE LEVEL 100 MMOL/L (98-107); CREATININE FOR GFR 0.80 MG/DL (0.70-1.30); GLOMERULAR FILTRATION RATE > 90.0 (>42); POTASSIUM SERUM 4.4 MMOL/L (3.5-5.1); SODIUM LEVEL 136 MMOL/L (136-145)
[2025-07-05] VITALS (33 sets, daily range): BP systolic 119–155; BP diastolic 56–72; TEMP 98–100.4; O2SAT 92–100
[2025-07-06] VITALS (30 sets, daily range): BP systolic 142–160; BP diastolic 66–80; TEMP 97.6–98.7; O2SAT 95–100
[2025-07-06 06:51] LABS: BASO # 0.0 10^3/uL (0.0-0.2); BASO % 0.3 % (0.0-1.0); EOS # 0.2 10^3/uL (0.0-0.5); EOS % 3.1 % (0.0-3.0); LYMPH # 0.4 10^3/uL (1.5-5.0); LYMPH % 6.7 % (24.0-44.0); MONO # 0.7 10^3/uL (0.0-0.8); MONO % 12.5 % (2.0-8.0); NEUTROPHILS # 4.4 10^3/uL (1.5-8.5); NEUTROPHILS % 75.7 % (36.0-66.0); PLATELET COUNT, AUTOMATED 340 10^3/uL (150-450)
[2025-07-06 07:15] LABS: CALCIUM LEVEL 8.2 MG/DL (8.3-10.6); CARBON DIOXIDE LEVEL 29 MMOL/L (20-31); CHLORIDE LEVEL 97 MMOL/L (98-107); CREATININE FOR GFR 0.74 MG/DL (0.70-1.30); GLOMERULAR FILTRATION RATE > 90.0 (>42); POTASSIUM SERUM 4.5 MMOL/L (3.5-5.1); SODIUM LEVEL 134 MMOL/L (136-145)
[2025-07-06] MEDS ORDERED: SENN-186 PEG (10:17)
[2025-07-06] MEDS ORDERED: MIRA3350 PEG (10:17)
[2025-07-06] MEDS ORDERED: LEVO100T5 PEG (10:17)
[2025-07-06] MEDS ORDERED: LISI10TA22 PEG (10:17)
[2025-07-06] MEDS ORDERED: MORP20SO PEG (10:17)
[2025-07-06] MEDS ORDERED: META28.32 PEG (10:17)
[2025-07-06] MEDS ORDERED: CYCL5TAB4 PEG (10:24)
[2025-07-06] MEDS ORDERED: MOUKOT60 MT (10:24)
[2025-07-06] MEDS ORDERED: PREV30TA3 PEG (10:24)
[2025-07-06] MEDS: CYCLOBENZAPRINE 5 MG TABLET PEG PRN (17:40)
[2025-07-07] VITALS (20 sets, daily range): BP systolic 116–192; BP diastolic 58–80; TEMP 97.7–98.6; O2SAT 94–99
[2025-07-07] MEDS ORDERED: ALB2.5NEB NEB (12:05)
[2025-07-07] MEDS ORDERED: SODI3NEB3 INH (12:05)
[2025-07-07] MEDS ORDERED: FENT1DIS14 TOP (14:16)
[2025-07-07] MEDS ORDERED: MORPHINE SULFATE ORAL SOLN 10 MG/5 ML PO SCH (15:00)
[2025-07-08] MEDS ORDERED: ALBU2.5V10 INH (16:10)
[2025-07-09] MEDS ORDERED: MORP20SO PEG (14:07)
[2025-07-10] MEDS ORDERED: FENTANYL REMOVAL DOCUMENTATION MISC XX SCH (13:00)
[2025-07-14] MEDS ORDERED: FENT1PAT25 TD (10:32)
== END 2025-07-07 14:26 | disposition home health service (06) | DRG 871 ==
LOC: EDBD 17:35 → M ED 17:35 → M ED INP 17:36 → M MS4PR 06-29 02:30 → M PCU 06-29 14:19 → OBSVTOIN 06-29 14:51
PROVIDERS: ADMIT Student in an Organized Health Care Education/Training Program; ATTEND Internal Medicine Nephrology
DX: A41.9 Sepsis, unspecified organism (principal); J69.0 Pneumonitis due to inhalation of food and vomit; J96.01 Acute respiratory failure with hypoxia; C79.51 Secondary malignant neoplasm of bone; G62.9 Polyneuropathy, unspecified; C32.1 Malignant neoplasm of supraglottis; I95.1 Orthostatic hypotension; R33.9 Retention of urine, unspecified; I11.9 Hypertensive heart disease without heart failure; R13.10 Dysphagia, unspecified; I48.0 Paroxysmal atrial fibrillation; E78.5 Hyperlipidemia, unspecified; Z66 Do not resuscitate; Z99.81 Dependence on supplemental oxygen; Z90.49 Acquired absence of other specified parts of digestive tract; Z93.1 Gastrostomy status; Z87.891 Personal history of nicotine dependence; Z79.69 Long term (current) use of other immunomodulators and immunosuppressants; Z79.890 Hormone replacement therapy; Z79.899 Other long term (current) drug therapy; Z88.0 Allergy status to penicillin; Z88.1 Allergy status to other antibiotic agents; Z92.3 Personal history of irradiation

== ENCOUNTER → 2025-07-10 | Outpatient (CLI) | payer MEDICARE ==
[~2025-07-10] VITALS: Ht 182.9 cm; Wt 72.7 kg
[~2025-07-10] MED LIST changes: +ALB2.5NEB NEB; +ALBU2.5V10 INH; +CYCL5TAB4 PEG; +FENT1DIS14 TOP; +LEVO100T5 PEG; +LISI10TA22 PEG; +MAGN500T6 PEG; +META28.32 PEG; +MIRA3350 PEG; +MORP20SO PEG; +MOUKOT60 MT; +PREV30TA3 PEG; +SENN-186 PEG; +SODI3NEB3 INH
[2025-07-10 13:12] VITALS: BP 147/88; O2SAT 95
== END ==
LOC: M PAL 12:39
PROVIDERS: ATTEND Physician Assistant
DX: Z51.5 Encounter for palliative care (principal); Z66 Do not resuscitate; C32.2 Malignant neoplasm of subglottis; J69.0 Pneumonitis due to inhalation of food and vomit; A41.9 Sepsis, unspecified organism; C77.0 Secondary and unspecified malignant neoplasm of lymph nodes of head, face and neck; Z92.21 Personal history of antineoplastic chemotherapy; Z88.1 Allergy status to other antibiotic agents; Z88.0 Allergy status to penicillin; Z88.6 Allergy status to analgesic agent; Z79.899 Other long term (current) drug therapy; Z79.83 Long term (current) use of bisphosphonates

== ENCOUNTER 2025-07-16 01:11 | Inpatient (IN) | payer MEDICARE ==
[~2025-07-16] VITALS: Ht 182.9 cm; Wt 70.5 kg
[~2025-07-16 01:11] MED LIST changes: -BACTDSTA; +CHLOR10TA PO; +EQL50TAB2 PEG; +FENT1PAT25 TD; -RA B1TAB2 PEG; +SULF-8
[2025-07-16] MEDS: MORPHINE SULFATE ORAL SOLN 10 MG/5 ML PEG PRN ×2 (03:46→19:10)
[2025-07-16 05:00] LABS: BASO # 0.1 10^3/uL (0.0-0.2); BASO % 0.4 % (0.0-1.0); EOS # 0.0 10^3/uL (0.0-0.5); EOS % 0.1 % (0.0-3.0); LYMPH # 0.3 10^3/uL (1.5-5.0); LYMPH % 1.5 % (24.0-44.0); MONO # 1.8 10^3/uL (0.0-0.8); MONO % 9.1 % (2.0-8.0); NEUTROPHILS # 17.0 10^3/uL (1.5-8.5); NEUTROPHILS % 88.1 % (36.0-66.0); PLATELET COUNT, AUTOMATED 532 10^3/uL (150-450)
[2025-07-16] MEDS ORDERED: VANCOMYCIN HCL 1,000 MG, VIAL MATE ADAPTER 1 EACH in NS 250 ML IV ONE (05:10)
[2025-07-16] MEDS: VANCOMYCIN HCL 1,500 MG, VIAL MATE ADAPTER 1 EACH in NS 500 ML IV ONE (05:25)
[2025-07-16 05:26] LABS: CK-MB VALUE MASS < 1.0 NG/ML (<3.6)
[2025-07-16 05:27] LABS: C REACTIVE PROTEIN QUANTITATIV 9.49 MG/DL (<1.0)
[2025-07-16 05:28] LABS: ALT/SGPT 21 U/L (7.0-40); AST/SGOT 35 U/L (<34); CALCIUM LEVEL 8.9 MG/DL (8.3-10.6); CARBON DIOXIDE LEVEL 26 MMOL/L (20-31); CHLORIDE LEVEL 93 MMOL/L (98-107); CREATININE FOR GFR 0.81 MG/DL (0.70-1.30); GLOMERULAR FILTRATION RATE > 90.0 (>42); POTASSIUM SERUM 5.6 MMOL/L (3.5-5.1); SODIUM LEVEL 128 MMOL/L (136-145)
[2025-07-16 05:37] LABS: VENOUS BASE EXCESS 2.3 (-2.0-2.0); VENOUS HCO3 27.4 MMOL/L (23.0-27.0); VENOUS O2 SATURATION 85.6 % (60.0-80.0); VENOUS PARTIAL PRESSURE CO2 44.7 mmHg (38.0-50.0); VENOUS PARTIAL PRESSURE O2 48.7 mmHg (30.0-50.0); VENOUS PH 7.406 UNITS (7.330-7.430); VENOUS STANDARD HCO3 26.3 MMOL/L; VENOUS TOTAL CO2 28.8 MMOL/L (24.0-28.0)
[2025-07-16 05:38] LABS: CPK CREATINE PHOSPHOKINASE < 15 U/L (46-171)
[2025-07-16 05:41] LABS: KETONE, URINE AUTO RFX NEGATIVE (NEGATIVE); LEUKOCYTE ESTERASE UR AUTO RFX NEGATIVE (NEGATIVE); NITRITE, URINE AUTO RFX NEGATIVE (NEGATIVE); RBC, URINE AUTO RFX 4 /HPF (0-3); SQUAM EPITHELIAL CELL UR AURFX 0 /HPF (0-6); WBC, URINE AUTO RFX 2 /HPF (0-3)
[2025-07-16 06:04] LABS: INR 1.04
[2025-07-16] MEDS: CEFEPIME HCL 1 GM in DEXTROSE 5% (D5W) ADV/MINI-BAG 50 ML IV ONE (07:32)
[2025-07-16] MEDS ORDERED: ACETAMINOPHEN 325 MG TAB PO PRN (09:00)
[2025-07-16] MEDS: NS (Normal Saline) 0.9% 1,000 ML IV SCH (10:13)
[2025-07-16] MEDS ORDERED: SODI3NEB3 INH (10:51)
[2025-07-16] MEDS ORDERED: FENT1PAT25 TD (10:51)
[2025-07-16] MEDS ORDERED: LISI10TA22 PEG (10:51)
[2025-07-16] MEDS ORDERED: CYCL5TAB4 PEG (10:51)
[2025-07-16] MEDS ORDERED: META28.32 PEG (10:51)
[2025-07-16] MEDS ORDERED: LEVO100T5 PEG (10:51)
[2025-07-16] MEDS ORDERED: POLY17PO18 PEG (10:51)
[2025-07-16] MEDS ORDERED: MORP20SO PO (10:51)
[2025-07-16] MEDS ORDERED: ALBU2.5V10 INH (10:51)
[2025-07-16] MEDS ORDERED: FENT1DIS14 TD (10:51)
[2025-07-16] MEDS ORDERED: CHLOR10TA PO (10:51)
[2025-07-16] MEDS ORDERED: MOUKOT60 MT (10:51)
[2025-07-16] MEDS ORDERED: SENN-186 PEG (10:51)
[2025-07-16] MEDS ORDERED: ONDA-282 PO (10:51)
[2025-07-16] MEDS ORDERED: LANS30CA PEG (10:51)
[2025-07-16] MEDS ORDERED: ACET-683 PO (10:54)
[2025-07-16] MEDS ORDERED: HOME MED LIST COMPLETE! XX SCH (10:55)
[2025-07-16] MEDS: FENTANYL REMOVAL DOCUMENTATION MISC XX SCH (14:00)
[2025-07-16] MEDS ORDERED: LORazepam 1 MG TAB PO PRN (15:25)
[2025-07-16] MEDS ORDERED: HYOSCYAMINE SULFATE 0.125 MG SUBL TABLET PO PRN (15:25)
[2025-07-16] MEDS ORDERED: FLEET ENEMA PR PRN (15:25)
[2025-07-16] MEDS ORDERED: ACETAMINOPHEN 650 MG SUPP PR PRN (15:25)
[2025-07-16] MEDS ORDERED: MORPHINE 10 MG/0.5 ML ORAL CONCENTRATE SOLUTION U/D SL PRN (15:25)
[2025-07-16] MEDS ORDERED: BISACODYL 10 MG SUPP PR PRN (15:25)
[2025-07-16] MEDS ORDERED: ATROPINE SULFATE 1% OPHTH SOLN 2 ML BTL SL PRN (15:25)
[2025-07-16] MEDS ORDERED: SCOPOLAMINE 1MG TRANSDERMAL PATCH TOP PRN (15:25)
[2025-07-16] MEDS: MORPHINE SULF IN 0.9% NACL 100 MG in IV 1 EA IV SCH (16:00)
[2025-07-16] MEDS ORDERED: CYCLOBENZAPRINE 5 MG TABLET PEG PRN (20:30)
[2025-07-16] MEDS ORDERED: SALIVA SUBSTITUTE BTL MT PRN (20:30)
[2025-07-16] MEDS: FINASTERIDE 5 MG TAB PO SCH (21:00)
[2025-07-16] MEDS: MIRALAX *UNIT DOSE* 17 GM PACKET PEG SCH (21:00)
[2025-07-16] MEDS: ONDANSETRON 4MG ORAL DISINTEGRATING TAB PO PRN (21:41)
[2025-07-16] MEDS ORDERED: HEPARIN SOD 5000 UNITS/ML 1 ML VIAL/SYRINGE SC SCH (22:00)
[2025-07-17] MEDS: ACETAMINOPHEN 325 MG TAB PO PRN (04:21)
[2025-07-17] MEDS: SODIUM CHLORIDE HYPERTONIC 3% 4ML NEB SOL INH SCH (07:37)
[2025-07-17] MEDS: SENNA 8.6 MG TAB PEG SCH (08:49)
[2025-07-17] MEDS: METAMUCIL PACKET PEG SCH (08:49)
[2025-07-17 09:32] VITALS: BP 162/74
[2025-07-17 12:45] VITALS: O2SAT 99
[2025-07-17 12:47] VITALS: TEMP 99.2
[2025-07-17] MEDS: ALBUTEROL SULFATE 2.5 MG/0.5 ML INH CONCENTRATE NEB SOLN INH PRN (20:15)
[2025-07-17] MEDS: ONDANSETRON 4MG/2ML VIAL IV PRN (22:50)
[2025-07-18] MEDS: MORPHINE 2 MG/ML 1 ML VIAL IV PRN (00:14)
[2025-07-18] MEDS: HEPARIN LOCK FLUSH 100 UNITS/ML 3 ML SYRINGE IV PRN (10:40)
[2025-07-18] MEDS: SODIUM CHLORIDE 0.9% INJ 10 ML SYR IV PRN (10:40)
[2025-07-18] MEDS ORDERED: MORP1SOL5 PO (11:43)
[2025-07-18] MEDS ORDERED: ATIV1TAB10 PO (11:47)
[2025-07-18] MEDS ORDERED: LEVO1TAB40 PO (11:48)
[2025-07-18] MEDS ORDERED: TRAN1DIS4 TOP (11:48)
[2025-07-18] MEDS: MORPHINE 10 MG/0.5 ML ORAL CONCENTRATE SOLUTION U/D PEG PRN (13:44)
[2025-07-19] MEDS ORDERED: HEPARIN LOCK FLUSH 100 UNITS/ML 3 ML SYRINGE IV SCH (09:00)
[2025-07-19] MEDS ORDERED: SODIUM CHLORIDE 0.9% INJ 10 ML SYR IV SCH (09:00)
== END 2025-07-18 16:08 | disposition hospice, home (50) | DRG 951 ==
LOC: M ED 01:11 → M ED INP 08:59 → M MSPAV 07-17 15:42
PROVIDERS: ADMIT Student in an Organized Health Care Education/Training Program; ATTEND Student in an Organized Health Care Education/Training Program
DX: Z51.5 Encounter for palliative care (principal); C79.51 Secondary malignant neoplasm of bone; E87.1 Hypo-osmolality and hyponatremia; R53.1 Weakness; J98.6 Disorders of diaphragm; E78.5 Hyperlipidemia, unspecified; C32.9 Malignant neoplasm of larynx, unspecified; R53.83 Other fatigue; R33.9 Retention of urine, unspecified; R13.10 Dysphagia, unspecified; I48.91 Unspecified atrial fibrillation; Z66 Do not resuscitate; G89.3 Neoplasm related pain (acute) (chronic); E87.5 Hyperkalemia; I95.1 Orthostatic hypotension; Z90.49 Acquired absence of other specified parts of digestive tract; Z87.891 Personal history of nicotine dependence; Z93.1 Gastrostomy status; Z92.3 Personal history of irradiation; Z79.890 Hormone replacement therapy; Z79.899 Other long term (current) drug therapy; Z88.0 Allergy status to penicillin; Z88.8 Allergy status to other drugs, medicaments and biological substances